=== PATIENT | female | born 1985 | race Caucasian/White ===

== ENCOUNTER 2022-01-25 09:52 | Outpatient (CLI) | payer OTHER, SELFPAY | END 2022-01-25 09:53 | disposition home or self-care (01) | LOC: NFLDREF 02-05 14:18 | PROVIDERS: PCP Family Medicine; Visit Provider Family Medicine | DX: R82.90 Unspecified abnormal findings in urine (principal) | CPT/HCPCS: 87086 ==

== ENCOUNTER 2022-03-23 09:01 | Outpatient (CLI) | payer OTHER, SELFPAY ==
[2022-03-23 15:44] LABS: Albumin* 4.5 g/dL (3.3-5.0); Chloride* 105 mmol/L (96-114); Sodium* 139 mmol/L (135-149)
[2022-03-23 15:45] LABS: Potassium* 4.1 mmol/L (3.6-5.1)
[2022-03-23 15:47] LABS: Aspartate Amino Transferase* 21 U/L (12-35); Bilirubin Total* 0.4 mg/dL (0.1-1.5); Carbon Dioxide* 25 mmol/L (20-32); Creatinine* 0.6 mg/dL (0.5-1.5); Estimated Glomerular Filt Rate 121 ml/min; Total Protein* 7.6 g/dL (6.0-8.3)
[2022-03-23 15:48] LABS: Alanine Aminotransferase* 18 U/L (4-35); Alkaline Phosphatase* 63 U/L (40-150); Blood Urea Nitrogen* 12 mg/dL (5-24); Glucose* 85 mg/dL (60-115)
[2022-03-23 15:50] LABS: C Reactive Protein* 2.8 mg/dL (0.5-1.0)
[2022-03-25 04:21] LABS: Immunoglobulin A 203 mg/dL (68-408)
[2022-03-25 06:57] LABS: Rheumatoid Factor <10 IU/mL (0-14)
[2022-03-25 16:57] LABS: HLA-B27 Positive (Negative)
[2022-03-26 00:34] LABS: Anti-Nuclear Ab(ANA)IgG ELISA None Detected (None Detected)
[2022-03-26 00:42] LABS: Tissue Transglutaminase IgA <2 U/mL (0-3)
== END 2022-03-23 09:02 | disposition home or self-care (01) ==
PROVIDERS: PCP Family Medicine; Visit Provider Family Medicine
DX: R10.13 Epigastric pain (principal); R53.83 Other fatigue; R14.0 Abdominal distension (gaseous); G89.29 Other chronic pain; M25.50 Pain in unspecified joint
CPT/HCPCS: 80053; 82784; 84443; 86039; 86140; 86200; 86364; 86431; 86812

== ENCOUNTER 2022-07-10 12:01 | Observation (INO) | payer OTHER, SELFPAY ==
[2022-07-10] VITALS (8 sets, daily range): BP systolic 113–136; BP diastolic 59–77; PULSE 90–113; RESP 16–18; TEMP 36.5–36.8; O2SAT 94–99; BMI 33.5
--- NOTE | 2022-07-10 | CRLHL7_ITS ---
For Patients: As a result of the Century Cures Act, medical imaging exams and procedure reports are released immediately into your electronic medical record. You may view this report before your referring provider. If you have questions, please contact your health care provider. INDICATION: unresponsive TECHNIQUE: Chest 1 view. COMPARISON: 11/24/20 FINDINGS: Cardiovascular and mediastinum: Heart size and vasculature are normal in caliber and appearance. Mediastinum is within normal limits. Lungs and pleural space: Lungs are clear. No sign of infiltrate or mass. No sign of pleural effusion. No pneumothorax. Bones and soft tissues: No significant findings. IMPRESSION: Unremarkable chest. Dictated by: Wayne Blackmon MD @ 07/10/2022 08:56:33 (Electronically Signed)
[2022-07-10 07:27] LABS: Ur HCG Qualitative* Negative (Negative)
--- NOTE | 2022-07-10 07:41 | W.ANESCHARGE ---
Anesthesia Charges Start Date/Time Anesthesia Start Date: 07/10/22 Anesthesia Start Time: 08:09 Stop Date/Time Anesthesia Stop Date: 07/10/22 Anesthesia Stop Time: 08:46
--- NOTE | 2022-07-10 09:00 | W.ANESCHARGE ---
Anesthesia Charges Start Date/Time Anesthesia Start Date: 07/10/22 Anesthesia Start Time: 08:09 Stop Date/Time Anesthesia Stop Date: 07/10/22 Anesthesia Stop Time: 08:46
[2022-07-10] MEDS: ACETAMINOPHEN 325 MG TABLET 650 MG PO ×2 (13:31→20:24)
--- NOTE | 2022-07-10 16:02 | PC.NURSE ---
Pt admitted to room 258 at 1015 from GI lab after hypoxic episode during procedure. Pt on 7L/nc when she arrived on the floor with her friend Paige and her Efrain at bedside. Eval by Dr. Whitlock, admission completed by primary RN. Pt had a dry non-productive spasmic cough initially. Toward the afternoon she reported back discomfort, RN provided extra pillows, ice pack and tylenol prn. Pt has been tapered to 3L/nc by 2 pm and sats maintained in the mid to high 90's. She does report some thin green phlegm production with occasional blood tinged sputum. Teaching regarding TCDB and sx to report urgently to RN. Reassurance provided and frequent checks throughout the shift. Mild nausea relieved with gingerale and saltines, later pt ate mashed potatoes w/gravy and applesauce. Airway patent, no dysphagia, pt is able to handle her secretions w/o difficulty. Adequate I & 0. Continue to monitor respiratory status and taper oxygen, report to [facility]ier[facility] for evening shift.
--- NOTE | 2022-07-10 16:18 | PM.IMHP1 ---
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 Scope was removed and she was resuscitated. She made good recovery and aureliano asked me to admit her overnight for observation. Ashley is awake in the room and talking with me. Defer and friend, Paige, are with her. She feels well and has no complaints. At this time she is requiring some oxygen and is hoarse. Review of Systems Status of ROS: Reports: 10 or more systems reviewed and unremarkable except as noted in History and below [facility] Medical History (Updated 07/10/22 @ 16:35 by Yina Whitlock MD) Obesity (BMI 30.0-34.9) ?E66.9 - Obesity, unspecified (ICD-10) Chronic GERD ?K21.9 - Gastro-esophageal reflux disease without esophagitis (ICD-10) Moderate obstructive sleep apnea (~2020) ?G47.33 - Obstructive sleep apnea (adult) (pediatric) (ICD-10) 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) ?F33.0 - Major depressive disorder, recurrent, mild (ICD-10) Hx of bulimia nervosa ?Z86.59 - Personal history of other mental and behavioral disorders (ICD-10) Vitamin D deficiency (02/2021) ?E55.9 - Vitamin D deficiency, unspecified (ICD-10) Chronic low back pain with sciatica ?M54.40 - Lumbago with sciatica, unspecified side (ICD-10) ?G89.29 - Other chronic pain (ICD-10) Anxiety ?F41.9 - Anxiety disorder, unspecified (ICD-10) ADHD ?F90.9 - Attention-deficit hyperactivity disorder, unspecified type (ICD-10) Surgical History (Updated 03/22/22 @ 11:45 by Loraine Foreman ~ PSR) History of third molar tooth extraction (2009) ?K08.409 - Partial loss of teeth, unspecified cause, unspecified class (ICD-10) Family History (Updated 03/27/22 @ 07:28 by Vandana Copeland MD) Mother Alcohol dependence Father Alcohol dependence Depression Aunt Diabetes Family/Other Diabetes Maternal Grandmother Pancreatic cancer Other Chronic low back pain with sciatica Social History (Updated 07/10/22 @ 16:31 by Yina Whitlock MD) Narrative: , 2 kids ages 14 and 8. 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 Quit 1 year ago and started vaping. Has been weaning down with intent to quit, currently vaping 1 - 2.6% cartrige Does not exercise on regular basis Do you use any of these nicotine containing products: Vaping Products Nicotine containing products detail: on and off How often do you have a drink containing alcohol: 2-4 times a month Alcohol type: beer How many standard drinks containing alcohol do you have on a typical day: 1 or 2 How often do you have six or more drinks on one occasion: Never AUDIT-C Alcohol total score: 2 Non-prescribed substance use: denies use Caffeine: Yes (4-5 times a week) Little interest or pleasure in doing things: several days Feeling down, depressed, or hopeless: several days service: No Meds Home Medications and Allergies Home Medications Medication Instructions Recorded Confirmed Type dextroamphetamine-amphetamine 10 10 mg PO BID PRN 07/10/22 07/10/22 History mg tablet (Adderall) dextroamphetamine-amphetamine 20 20 mg PO QDAY PRN 07/10/22 07/10/22 History mg tablet Allergies Allergy/AdvReac Type Severity Reaction Status Date / Time indomethacin AdvReac Unknown Nausea Verified 03/23/22 08:32 Exam Narrative: Exam Narrative: General: No acute distress. Awake alert oriented x3. No pallor, jaundice, or cyanosis. Voice is hoarse. HEENT: Normocephalic atraumatic, Oropharynx clear. Mucous membranes are moist. No JVD. Cardiovascular: Regular rate and rhythm. No murmurs, gallops, or rubs. Chest: No increased work of breathing. Clear to auscultation bilaterally. No crackles or wheezes. Abdomen: Bowel sounds present. Soft, nondistended, nontender. No hepatosplenomegaly or masses. Extremities: No edema, no cyanosis or clubbing. Skin: No jaundice, no pallor, no rashes. Neuro: Grossly intact. No focal deficits. Const: Vital Signs, click to edit/add: Vital Signs - 24 hr 07/10/22 09:33 07/10/22 09:50 07/10/22 11:15 Temperature 97.7 F Pulse Rate [Left A pical] 90 Pulse Rate [Right Pulse Oximeter] 101 H Respiratory Rate 18 16 Blood Pressure [Ri ght Arm] 115/60 122/67 Pulse Oximetry 94 94 99 Oxygen Delivery Me thod Nasal Cannula Nasal Cannula Nasal Cannula Oxygen Flow Rate 7 7 4 07/10/22 12:03 07/10/22 15:00 07/10/22 15:00 Temperature Pulse Rate [Left A pical] Pulse Rate [Right Pulse Oximeter] 108 H Respiratory Rate 18 18 Blood Pressure [Ri ght Arm] Pulse Oximetry 98 97 Oxygen Delivery Me thod Nasal Cannula Oxygen Flow Rate 2.5 07/10/22 15:00 Temperature 98 F Pulse Rate [Left A pical] Pulse Rate [Right Pulse Oximeter] 108 H Respiratory Rate 18 Blood Pressure [Ri ght Arm] 136/77 Pulse Oximetry 97 Oxygen Delivery Me thod Nasal Cannula Oxygen Flow Rate 2.5 Hospitalist - H&P: Result Labs Labs: Ordering Physician: Fanny Malhotra M.D. Date of Service: 07/10/22 Procedure(s): XR chest 1V portable Accession Number(s): [id number] cc: Vandana Copeland M.D.; Fanny Malhotra M.D.~ For Patients:? As a result of the Century Cures Act, medical imaging exams and procedure reports are released immediately into your electronic medical record.? You may view this report before your referring provider.? If you have questions, please contact your health care provider. INDICATION: unresponsive TECHNIQUE: Chest 1 view. COMPARISON: 11/24/20 FINDINGS: Cardiovascular and mediastinum: Heart size and vasculature are normal in caliber and appearance.? Mediastinum is within normal limits.? Lungs and pleural space: Lungs are clear.? No sign of infiltrate or mass.? No sign of pleural effusion.? No pneumothorax.? Bones and soft tissues: No significant findings.? IMPRESSION: Unremarkable chest. Dictated by: Wayne Blackmon MD @ 07/10/2022 08:56:33 (Electronically Signed) Assessment and Plan Assessment and plan (1) Respiratory arrest: Problem comment: Likely secondary to laryngospasm or mucous plugging. Monitor on Status: Acute (2) Chronic GERD: Problem comment: recurrent nausea/ vomiting Status: Chronic (3) Moderate obstructive sleep apnea: Problem comment: will try oral appliance, waiting for that appt at [facility] Status: Acute (4) Obesity (BMI 30.0-34.9): Status: Acute
[2022-07-10] MEDS: FLUOXETINE HCL 20 MG CAPSULE PO (16:20)
[2022-07-10] MEDS: OMEPRAZOLE 20 MG CAPSULE DR PO (16:21)
--- NOTE | 2022-07-10 22:28 | PC.NURSE ---
Nursing Care Hours: [id number] pt this shift calm and cooperative, alert and oriented. SPO2 97% on 3.5L NC, titrate down 1L about every hour, sats remained above 94%. Walked horowitz x1 on Room air, lowest SpO2 93%, pulse 128. At rest, pulse tachy at 105-113. Drinking well. Pt states cough is productive, pt observed some red tinge to green sputum. Encouraged that streaks would be normal after severe irritation. LS beginning of shift had bilat expiratory rhonchi. End of shift, posterior L mid lobe had fine crackles. Pt has difficulty using IS because it starts coughing fit. Encouraged to try and take as deep of breaths as tolerated frequently to encourage the expelling of sputum. Tolerating regular diet. Tylenol given PRN for chronic low back and bilat hip pain.
[2022-07-10] MEDS: SODIUM CHLORIDE 0.9 % (FLUSH) 10 ML SYRINGE 5 ML IVF (23:36)
[2022-07-11] MEDS: MELATONIN 3 MG TABLET PO (00:28)
[2022-07-11 03:30] VITALS: BP 109/57; PULSE 91; RESP 16; TEMP 36.7; O2SAT 96
--- NOTE | 2022-07-11 06:06 | PC.NURSE ---
END OF SHIFT NOTE: PT PLEASANT AND COOPERATIVE WITH CARES. A&O x4.?PT DENIES CP, SOB, N/V. AMBULATES INDEPENDENTLY WITHIN ROOM. VSS ON RA; AFEBRILE. CONTINUOUS SPO2 MONITORING, SATS IN MID 90?S ON RA. INTERMITTENT NON-PRODUCTIVE COUGH. LS WITH EXPIRATORY WHEEZING AND RHONCHI. IS ENCOURAGED. PT C/O CHRONIC LOWER BACK/HIP PAIN WITH SOME RELIEF FROM AQUA-K PAD, ICE PACK AND PRN PAIN RELIEVER. CALL LIGHT WITHIN PT?S REACH. UNEVENTFUL NIGHT.
[2022-07-11 07:00] VITALS: BP 125/88; PULSE 91; RESP 18; TEMP 36.6; O2SAT 95
--- NOTE | 2022-07-11 07:22 | CRLHL7_ITS ---
For Patients: As a result of the Century Cures Act, medical imaging exams and procedure reports are released immediately into your electronic medical record. You may view this report before your referring provider. If you have questions, please contact your health care provider. Indication: Hypoxia. Technique: Chest 1 view. Comparison: 07/10/2022. Findings/Impression: Cardiovascular and mediastinum: Heart size and vasculature are normal in caliber and appearance. Lungs and pleural space: No focal opacity in the lower left lung could represent atelectasis or pneumonia. This is similar to yesterday`s exam. Remainder of the lungs and pleural spaces are clear. No pneumothorax. Bones and soft tissues: No acute findings. Dictated by Pancho Lopez MD @ 07/11/2022 8:00:08 AM (Electronically Signed)
[2022-07-11] MEDS: OMEPRAZOLE 20 MG CAPSULE DR PO (08:26)
[2022-07-11] MEDS: FLUOXETINE HCL 20 MG CAPSULE PO (08:26)
--- NOTE | 2022-07-11 09:48 | P.DS_ITS ---
DS: Providers Provider Date Seen: 07/11/22 Date of admission: 07/10/22 12:01 Primary care physician: Vandana Copeland MD Admitting Clinician: Yina Whitlock MD Attending Physician on discharge: Karey Ann MD Date of Discharge: 07/11/22 DS: Diagnosis Discharge Diagnosis (1) Respiratory arrest: Status: Acute Problem details: - during EGD. Likely secondary to laryngospasm and/or mucous plugging; remained stable on RA throughout 24 hour observation (2) Chronic GERD: Status: Chronic Problem details: - n/v (3) Pneumonia: Status: Acute Problem details: - noted on imaging 07/11, exam also c/w this, discharge home on oral Augmentin DS: Summary Hospital Course Hospital Course: Pleasant 37-year-old female who was admitted to the hospital for monitoring after having a respiratory arrest during an EGD. Patient did not require intubation nor chest compressions during her event. She was admitted to the hospital for observation post-incident. She remained stable and afebrile, did not require supplemental oxygen and was followed by RT during stay. On hospital day 1, she was noted to have fine rales in her left lung base; imaging confirmed an early infiltrate vs atelectasis in her left lower lobe. She will be discharged home on Augmentin with close PCP follow-up. Status at Discharge Functional status at discharge: independent ambulation Overall status at discharge: patient is progressing back to baseline Time Spent with Patient Time attestation: Total time spent providing and/or coordinating discharge services: Time spent: Greater than 30 minutes Specific discharge activities: Patient education, care coordination with RT, medication reconciliation Exam Narrative: Exam Narrative: GEN: Alert and oriented, sitting comfortably in bedside chair and speaking in f ull sentences HEENT: EOMIs bilaterally, no scleral icterus CV: RRR, No concerning murmurs, rubs, or gallops R: Air movement adequate, no wheezes, fine rales left base Ext: wwp, no concerning edema Skin: No concerning skin lesions or rashes on exposed skin Neuro: No focal deficits, no resting tremor Psych: Appropriate Const: Vital Signs, click to edit/add: Vital Signs - 24 hr 07/10/22 09:50 07/10/22 11:15 07/10/22 12:03 Temperature 97.7 F Pulse Rate [Left A pical] Pulse Rate [Right Pulse Oximeter] 101 H Respiratory Rate 16 Blood Pressure [Ri ght Arm] 122/67 Pulse Oximetry 94 99 98 Oxygen Delivery Me thod Nasal Cannula Nasal Cannula Oxygen Flow Rate 7 4 07/10/22 15:00 07/10/22 15:00 07/10/22 15:00 Temperature 98 F Pulse Rate [Left A pical] Pulse Rate [Right Pulse Oximeter] 108 H 108 H Respiratory Rate 18 18 18 Blood Pressure [Ri ght Arm] 136/77 Pulse Oximetry 97 97 Oxygen Delivery Me thod Nasal Cannula Nasal Cannula Oxygen Flow Rate 2.5 2.5 07/10/22 19:00 07/10/22 20:32 07/10/22 23:00 Temperature 98.3 F Pulse Rate [Left A pical] 90 Pulse Rate [Right Pulse Oximeter] 113 H 113 H 96 Respiratory Rate 18 18 18 Blood Pressure [Ri ght Arm] 132/63 Pulse Oximetry 95 Oxygen Delivery Me thod Room Air Oxygen Flow Rate 07/10/22 23:00 07/10/22 23:00 07/11/22 03:30 Temperature 97.7 F 98.0 F Pulse Rate [Left A pical] Pulse Rate [Right Pulse Oximeter] 96 91 Respiratory Rate 16 16 16 Blood Pressure [Ri ght Arm] 113/59 L 109/57 L Pulse Oximetry 95 95 96 Oxygen Delivery Me thod Room Air Room Air Room Air Oxygen Flow Rate Discharge Plan Discharge Disposition: Home, Self-Care Date of Admission: 07/10/22 12:01 Attending Provider on Discharge: Karey Ann Primary Care Provider: Vandana Copeland Condition: Improved Anticipated Discharge Date/Time: 07/11/22 09:39 Discharge Medications: New amoxicillin-pot clavulanate 875-125 mg tablet 1 tab PO BID 7 Days Qty: 14 0RF Continued omeprazole 20 mg capsule,delayed release(DR/EC) 20 mg PO QDAY Qty: 90 4RF dextroamphetamine-amphetamine [Adderall] 10 mg tablet 10 mg PO BID PRN Rx Instructions: administer doses at least 4-6 hours apart dextroamphetamine-amphetamine 20 mg tablet 20 mg PO QDAY PRN naproxen 500 mg tablet 500 mg PO BIDWM norgestimate-ethinyl estradiol 0.25-35 mg-mcg tablet 1 tab PO QDAY Qty: 84 3RF fluoxetine 20 mg capsule 20 mg PO QDAY Qty: 90 4RF Discharge Orders: Discharge Order (Routine); Ordered 07/11/22 Ordered By: Karey Ann Patient Education: Amoxicillin/Clavulanate Potassium (By mouth) (Augmentin, Augmentin..., Aspiration Pneumonia (DC) Activity Level: Activity as Tolerated Discharge Diet: Regular Follow Up Appointments: Vandana Copeland MD [Primary Care Provider] - 07/20/22 2:30 pm ([facility] follow up with Dr. Copeland.) Forms: [employer] Info Instructions
--- NOTE | 2022-07-11 09:55 | RESP.RT ---
Pt seen this AM. Walked PT for a few minutes as well as marching in place to mimick home steps. SPO2 on RA consistetly 97%, HR 104. BBS clear on right, however, LLL with crackles. 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 Pt is anxious and nervous about falling asleep at home. Mentioned this to provider.
[2022-07-11 10:16] VITALS: RESP 16; TEMP 36.7
--- NOTE | 2022-07-11 11:48 | PC.NURSE ---
shift note: vss stable. pt has exp rhonchi in LLL and BURAK. pt sats cont 95% RA. Pt has dry intermittent cough. pt instructed by RT on aerobika. Reviewed dc instructions and copies sent with pt at dc. Belongings reviewed and sent with pt at dc. IV dc'd intact Rt FA
== END 2022-07-11 11:35 | disposition home or self-care (01) ==
LOC: OP CLINIC 12:47 → MEDSURG 12:47
PROVIDERS: Surgery; Admitting Provider Family Medicine; PCP Family Medicine; Visit Provider Family Medicine
DX: R09.2 Respiratory arrest (principal); K21.9 Gastro-esophageal reflux disease without esophagitis; J18.9 Pneumonia, unspecified organism; G47.33 Obstructive sleep apnea (adult) (pediatric); R91.8 Other nonspecific abnormal finding of lung field; Z86.59 Personal history of other mental and behavioral disorders; F17.290 Nicotine dependence, other tobacco product, uncomplicated; E66.9 Obesity, unspecified; Z68.33 Body mass index [BMI] 33.0-33.9, adult; F90.9 Attention-deficit hyperactivity disorder, unspecified type; M54.40 Lumbago with sciatica, unspecified side; G89.29 Other chronic pain; Z98.890 Other specified postprocedural states; T81.89XA Other complications of procedures, not elsewhere classified, initial encounter; J95.821 Acute postprocedural respiratory failure
CPT/HCPCS: 00731; 43239; 71045; 81025; 88305; 94664; 94761; A9270; G0378; J2405

== ENCOUNTER 2022-10-02 15:52 | Outpatient (CLI) | payer OTHER, SELFPAY ==
--- OUTSIDE RECORDS SUMMARY | 2022-10-03 07:03 | XMS_ITS | Continuity of Care Document ---
Author Name Unknown Organization [facility] Address [address] [place] [address] Phone Care Team Providers Care Saw Runner Name Role Phone Padmini KUMAR, Daniel Unavailable Unavailable Allergies, Adverse Reactions, Alerts Substance Reaction Status Criticality CEFTRIAXONE SODIUM Active No Inform ation Medications Medication Instructions Dosage Effective Dates (start - stop) Status Comments naproxen 500 mg tablet take 1 tablet by oral route 2 times every day with food 500 MG - Active fluoxetine 20 mg tablet take 1 tablet by oral route every day in the morning 20 MG - Active norgestimate 0.25 mg-ethinyl estradiol 35 mcg tablet take 1 tablet by oral route every day 1.00 tablet - Active Adderall XR 20 mg capsule,extended release take 1 capsule by oral route every day in the morning upon awakening 20 MG - Active omeprazole 20 mg tablet,delayed release take 1 Tablet by Oral route every day 1 Tablet - Active FISH OIL (unknown strength) Not Available - Active Vitamin D3 50 mcg (2,000 unit) tablet take 1 Tablet by Oral route every day 1 Tablet - Active Procedures Procedure Date Office/Outpatient Visit, New Routine Venipuncture Specimen Handling Rbc Sed Rate, Automated Assay Of Serum Albumin Assay Of Creatinine Transferase (Ast) (Sgot) Alanine Amino (Alt) (Sgpt) CReactive Protein Complete Cbc, Automated Results Test Name Date and Time Measure Units Reference Range Abnormal Flag Status Comments Panel Description: CBC no diff - Radha Final WBC 12:29:00 7.1 K/uL 4.0-10.0 Final RBC 12:29:00 4.53 M/uL 3.80-5.80 Final Hemoglobin 12:29:00 14.2 g/dL 11.5-16.0 Final Hematocrit 12:29:00 42.0 % 37.0-47.0 Final MCV 12:29:00 93 fL 80-100 Final MCH 12:29:00 31.3 pg 27.0-32.0 Final MCHC 12:29:00 33.7 g/dL 32.0-36.0 Final RDW 12:29:00 12.6 % 11.0-16.0 Final Platelet Count 12:29:00 334 K/uL 150-500 Final MPV 12:29:00 7.2 fL 6.0-11.0 Final Panel Description: DMARD Final AST 13:16:00 26 U/L 5-34 Final ALT 13:16:00 22 IU/L 5-35 Final Creatinine 13:16:00 0.530 mg/dL 0.500-1.300 Final ALB 13:16:00 4.2 g/dL 3.5-5.3 Final GFR 13:16:00 140.3 mL/min/1 .73 m2 Final Panel Description: CRP Final CRP 13:16:00 2.49 MG/DL 0.00-0.60 H Final Panel Description: ESR Final ESR 13:42:00 16 mm/hr 0-20 Final Panel Description: HEPATITIS B SURFACE ANTIGEN W /REFL CONFIRM Final HEPATITIS B SURFACE ANTIGEN 13:56:00 NON-REACTI VE NON-REACTIVE N Final Panel Description: HEPATITIS C AB W/REFL TO HCV RNA, QN, PCR Final HEPATITIS C ANTIBODY 13:56:00 NON-REACTI VE NON-REACTIVE N Final INDEX 13:56:00 0.09 <1.00 N Final HCV antibody was non-reactive. There is no laboratory evidence of HCV infection. In most cases, no further action is required. However,if recent HCV exposure is suspected, a test for HCV RNA(test code 29761) is suggested. For additional information please refer [email or web address](This link is being provided for informational/ educational purposes only.) Advance Directives Directive Yes / No Effective Date File Name No Information Encounters Encounter Description Practice Location Reason(s) For Visit Diagnoses Date Provider Providers Copied on Encounter Office/Outpa tient Visit, [facility], [address], [place], [address], [place] tel:[phone] [facility], low back pain (chief complaint) Low back pain 3 Padmini Sanchez. [facility] [address], [place], [address], [place]. tel:[phone] Referring Provider: Daniel Torres, [facility] [address], [place], [address]. tel:[phone] Family History Family Member Type Diagnosis Age At Onset Maternal aunt Problem rheumatoid arthritis Maternal aunt Problem Systemic lupus erythematosu s Payers Payer name Insurance type Covered libertarian ID Authoriza tion(s) [employer] CI [id number] Social History Type Description Quantity Date Captured Comments Alcohol Use Details No Caffeine Use Details Tobacco Use Status Current non-smoker Smoking Status Never smoker Non-Smoking Tobacco Use Details : No Details Available : No Details Available Sex Female Vital Signs Date / Time: Height Weight BMI Pulse Rate Blood Pressure Temperature Respiratory Rate Body Surface Area Head Circumference Head Circ. Percentile Wt./Josiah. Percentile BMI percentile Pulse Ox Inhaled Ox 11:25 AM 70.28 in 102.512 kg (226.00 lbs) 32.1 7 kg/m eter (2) 126/88 mm[Hg] 98.00 F Chief Complaint And Reason For Visit From encounter dated '06/27/2022 11:15'. low back pain (chief complaint) Reason For Referral Reason For Referral No Information History Of Present Illness Encounter Date Complaint History Of Prese nt Illness low back pain Functional Status Date Functional Assessmen t Pain Score 6/10 Instructions Date Instruction Additional Infor mation No Information Assessments Type Assessment Date assessment Low back pain Patient Care Teams Name Effective Dates (start - stop) Status Members No Information
== END 2022-10-02 15:53 | disposition home or self-care (01) ==
LOC: NFLDREF 10-03 07:01
PROVIDERS: PCP Family Medicine; Referring Provider Family Medicine; Visit Provider Internal Medicine
DX: R10.9 Unspecified abdominal pain (principal)
CPT/HCPCS: 87086

== ENCOUNTER 2023-02-14 14:57 | Emergency (ER) | payer OTHER, SELFPAY ==
[2023-02-14] VITALS (9 sets, daily range): BP systolic 117–139; BP diastolic 83–97; PULSE 77–97; RESP 18; TEMP 36.3; O2SAT 97–99; BMI 33.0
--- NOTE | 2023-02-14 15:23 | CRLHL7_ITS ---
For Patients: As a result of the Century Cures Act, medical imaging exams and procedure reports are released immediately into your electronic medical record. You may view this report before your referring provider. If you have questions, please contact your health care provider. INDICATION: Dizziness, headache. TECHNIQUE: Noncontrast CT of the head with multiplanar reformat in bone and soft tissue algorithms. COMPARISON: None available. FINDINGS: No acute intracranial hemorrhage. The ramirez-white matter interface is preserved. The ventricles are normal in size. 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 Orbits are unremarkable. A mucous retention cyst is noted in the inferior left maxillary sinus. Paranasal sinuses and mastoid air cells are otherwise clear. IMPRESSION: No acute intracranial abnormality. Please note that all CT scans at this facility use dose modulation, iterative reconstruction, and/or weight-based dosing when appropriate to reduce radiation dose to as low as reasonably achievable. Dictated by Pritesh العراقي MD @ 02/14/2023 4:26:57 PM (Electronically Signed)
--- NOTE | 2023-02-14 16:07 | CRLHL7_ITS ---
For Patients: As a result of the Cures Act, medical imaging exams and procedure reports are released immediately into your electronic medical record. You may view this report before your referring provider. If you have questions, please contact your health care provider. INDICATION: Chest pain. TECHNIQUE: Chest radiographs, two views. COMPARISON: Chest radiographs 07/24/2022 FINDINGS: Lines/Tubes/Devices: None. Mediastinum: Normal cardiac silhouette. Lungs: No focal consolidation. Airways: The trachea remains midline. Pleura: No pleural effusions or pneumothorax. Bones: No acute osseous abnormalities. Upper Abdomen: Unremarkable. IMPRESSION: No acute cardiopulmonary process. Stable examination. Dictated by Harvey Lopez MD @ 02/14/2023 5:52:58 PM (Electronically Signed)
--- NOTE | 2023-02-14 16:23 | ED.GENADULT ---
HPI - General Adult General Chief complaint: Dizziness/Vertigo Stated complaint: Dizzy, lightheaded Time Seen by Provider: 02/14/23 16:06 History of Present Illness HPI narrative: Patient is a 37-year-old female presenting to emergency department for lightheadedness, dizziness, chest pain. She states for the past year and a half she has been having these symptoms on and off but they have gotten worse for the past 3 weeks after she was diagnosed with COVID. 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 She states this was the worst the symptoms have ever been. She continues to feel dizzy and states she is tried Antivert in the past for these symptoms and does not really help. Also states she feels like her hearing seems to come and go. She has not been is seeing neurologist for these symptoms yet but does states she was in the process of seeing a infrastructure software engineer who recommended she get an EGD. While she was having this performed respiratory arrest but did not require intubation or chest compressions. She was admitted to the hospital has not been able to follow-up with her infrastructure software engineer since then. States at the time of the episode she felt like she was going to pass out in the room was spinning. Also has intermittent chest pain. Denies fevers, chills, abdominal pain, shortness of breath, numbness, weakness. Related Data Previous Rx's Medication Instructions Recorded omeprazole 20 mg capsule,delayed 20 mg PO QDAY #90 caps 03/23/22 release fluoxetine 20 mg capsule 20 mg PO QDAY #180 caps 09/20/22 dextroamphetamine-amphetamine 10 10 mg PO .PRN #60 tabs 11/07/22 mg tablet (Adderall) fluconazole 100 mg tablet 100 mg PO QDAY #15 tabs 12/06/22 (Diflucan) norgestimate 0.25 mg-ethinyl 1 tab PO QDAY #84 tabs 01/08/23 estradiol 35 mcg tablet meclizine 25 mg tablet 25 mg PO QID #20 tabs 02/14/23 Allergies Allergy/AdvReac Type Severity Reaction Status Date / Time indomethacin AdvReac Unknown Nausea Verified 12/06/22 09:30 Review of Systems Status of ROS: Reports: 10 or more systems reviewed and unremarkable except as noted in History and below PFSH PFSH Medical History Abdominal pain ?R10.9 - Unspecified abdominal pain (ICD-10) Obesity (BMI 30.0-34.9) ?E66.9 - Obesity, unspecified (ICD-10) Aspiration pneumonia ?J69.0 - Pneumonitis due to inhalation of food and vomit (ICD-10) Pneumonia ?J18.9 - Pneumonia, unspecified organism (ICD-10) Chronic GERD ?K21.9 - Gastro-esophageal reflux disease without esophagitis (ICD-10) Moderate obstructive sleep apnea (~2020) ?G47.33 - Obstructive sleep apnea (adult) (pediatric) (ICD-10) 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) ?F33.0 - Major depressive disorder, recurrent, mild (ICD-10) Hx of bulimia nervosa ?Z86.59 - Personal history of other mental and behavioral disorders (ICD-10) Vitamin D deficiency (02/2021) ?E55.9 - Vitamin D deficiency, unspecified (ICD-10) Chronic low back pain with sciatica ?M54.40 - Lumbago with sciatica, unspecified side (ICD-10) ?G89.29 - Other chronic pain (ICD-10) Anxiety ?F41.9 - Anxiety disorder, unspecified (ICD-10) ADHD ?F90.9 - Attention-deficit hyperactivity disorder, unspecified type (ICD-10) Surgical History History of third molar tooth extraction (2009) ?K08.409 - Partial loss of teeth, unspecified cause, unspecified class (ICD-10) Family History Mother Alcohol dependence Father Alcohol dependence Depression Aunt Diabetes Family/Other Diabetes Maternal Grandmother Pancreatic cancer Other Chronic low back pain with sciatica Social History Narrative: , 2 kids ages 14 and 8. [employer] Social drinker 8-10 beers once a month Non smoker. Smoked off and on for 15-20 years. 09/2021 Does not exercise on regular basis Smoking Status: Former smoker Do you use any of these nicotine containing products: Vaping Products Nicotine containing products detail: on and off How often do you have a drink containing alcohol: 2-4 times a month Alcohol type: beer How many standard drinks containing alcohol do you have on a typical day: 1 or 2 How often do you have six or more drinks on one occasion: Never AUDIT-C Alcohol total score: 2 Non-prescribed substance use: denies use Caffeine: Yes (4-5 times a week) Little interest or pleasure in doing things: several days Feeling down, depressed, or hopeless: several days service: No Exam Narrative: Exam Narrative: Const: Well-nourished, Well-developed, in mild distress Eyes: PERRL, no conjunctival injection, and symmetrical lids HENT: Atraumatic external nose and ears. Moist mucous membranes. Neck: Symmetric, trachea midline, No thyromegaly. CVS: RRR, No murmurs or gallops. Peripheral pulses 2+ and equal in all extremities RESP: Unlabored respiratory effort. Clear to auscultation bilaterally. GI: Nontender/Nondistended, No rebound or guarding. MSK:Extremities w/o deformity, Normal Active ROM Skin: Warm, Dry. No rashes or lesions. Neuro: Normal Muscle tone, No focal neurological deficits. Psych: Awake, Alert, & Oriented x3. Appropriate mood and affect. Const: Vital Signs, click to edit/add: Vital Signs - 24 hr 02/14/23 15:05 02/14/23 16:46 02/14/23 16:47 Temperature 97.4 F L Pulse Rate 78 84 Pulse Rate [Pulse Oximeter] 97 Respiratory Rate 18 Blood Pressure 129/85 Blood Pressure [Ri ght Upper Arm] 139/97 H Pulse Oximetry 99 98 97 Oxygen Delivery Me thod Room Air 02/14/23 17:00 02/14/23 17:02 02/14/23 17:15 Temperature Pulse Rate 86 84 80 Pulse Rate [Pulse Oximeter] Respiratory Rate Blood Pressure 133/85 Blood Pressure [Ri ght Upper Arm] Pulse Oximetry 98 98 98 Oxygen Delivery Me thod 02/14/23 17:30 02/14/23 17:32 02/14/23 17:45 Temperature Pulse Rate 77 80 81 Pulse Rate [Pulse Oximeter] Respiratory Rate Blood Pressure 117/83 Blood Pressure [Ri ght Upper Arm] Pulse Oximetry 99 99 98 Oxygen Delivery Me thod Course Vital Signs Vital signs: Initial Vital Signs Temperature 97.4 F L 02/14/23 15:05 Temperature Source Temporal Artery Scan 02/14/23 15:05 Pulse Rate 97 02/14/23 15:05 Respiratory Rate 18 02/14/23 15:05 Blood Pressure 139/97 H 02/14/23 15:05 Blood Pressure Mean 111 H 02/14/23 15:05 Blood Pressure Position Sitting 02/14/23 15:05 Pulse Oximetry 99 02/14/23 15:05 Oxygen Delivery Method Room Air 02/14/23 15:05 Vital Signs Temperature 97.4 F L 02/14/23 15:05 Pulse Rate 97 02/14/23 15:05 Respiratory Rate 18 02/14/23 15:05 Blood Pressure 139/97 H 02/14/23 15:05 Pulse Oximetry 99 02/14/23 15:05 Oxygen Delivery Method Room Air 02/14/23 15:05 Temperature 97.4 F L 02/14/23 15:05 Pulse Rate 81 02/14/23 17:45 Respiratory Rate 18 02/14/23 15:05 Blood Pressure 117/83 02/14/23 17:32 Pulse Oximetry 98 02/14/23 17:45 Oxygen Delivery Method Room Air 02/14/23 15:05 Medications Administered Medications: Discontinued Medications Generic Name Dose Route Start Last Admin Trade Name Floridalma PRN Reason Stop Dose Admin Lactated Ringer's 1,000 mls @ 1,000 mls/hr 02/14/23 16:07 02/14/23 18:09 Lactated Ringers 1000 Ml IV 02/14/23 17:06 Infused .Q1H ONE Infusion Meclizine HCl 25 mg 02/14/23 17:00 02/14/23 17:07 Meclizine Hcl 25 Mg Tablet PO 02/14/23 17:01 25 mg ONCE ONE Administration Medical Decision Making MDM Narrative Medical decision making narrative: Patient is a 37-year-old female presenting to emergency department for lightheadedness and dizziness. She states symptoms are worse when she moves her head. Nursing staff was initially concerned she could be having aphasia so head CT was ordered prior to the start of my shift. The symptoms are not there and I spoke to the patient and her only concern was the dizziness. This returned showing no concerning abnormalities. To speaking to her longer does appears she does have vertigo and symptoms at all and only there when she moves her head. Will give her lactated Ringer's and meclizine. CBC, magnesium, CMP, troponin, urinalysis, urine test all ordered. Also lab work returned showing no concerning abnormalities. Head CT and chest x-ray showed no concerning findings. Her symptoms have improved significantly with the fluids and Antivert. I do believe she is having peripheral vertigo considering the symptoms. She does feel comfortable with discharge at this time. EKG also showed no concerning findings. Lab Data Labs: Lab Results 02/14/23 02/14/23 Range/Units 16:27 Unknown WBC 9.87 (4.50-11.00) K/uL RBC 4.49 (4.00-5.20) m/uL Hgb 13.4 (12.0-16.0) gm/dL Hct 40.8 (33.0-51.0) % MCV 91 (80-100) fL MCH 30 (26-34) pg MCHC 33 (32-36) gm/dL RDW Coeff of Ayo 12.3 (11.5-15.5) % Plt Count 321 (140-440) K/uL Neut % (Auto) 65.5 (42.0-72.0) % Lymph % (Auto) 24.1 (20-44) % [place] % (Auto) 8.8 (0.0-11.0) % Eos % (Auto) 1.2 (0.0-7.0) % Baso % (Auto) 0.3 (0.0-3.0) % Neut # (Auto) 6.46 (1.7-7.0) K/uL Lymph # (Auto) 2.38 (0.90-2.90) K/uL [place] # (Auto) 0.90 (0.00-0.90) K/UL Eos # (Auto) 0.12 (0.00-0.50) K/uL Baso # (Auto) 0.03 (0.00-0.30) K/uL Abs Immat Gran (auto) 0.01 (0.00-0.30) K/uL Imm/Tot Granulo (auto) 0.1 % Sodium 136 (135-149) mmol/L Potassium 3.8 (3.6-5.1) mmol/L Chloride 102 (96-114) mmol/L Carbon Dioxide 27 (20-32) mmol/L Anion Gap 7 (7-15) mEq/L BUN 16 (5-24) mg/dL Creatinine 0.5 (0.5-1.5) mg/dL Estimated Creat Clear 169.82 Estimated GFR 125 ml/min Glucose 88 (60-115) mg/dL Calcium 9.6 (8.4-10.6) mg/dL Magnesium 1.8 (1.5-2.6) mg/dL Total Bilirubin 0.2 (0.1-1.5) mg/dL AST 33 (12-35) U/L ALT 42 H (4-35) U/L Alkaline Phosphatase 63 (40-150) U/L Troponin I < 0.01 L (0.01-0.04) ng/mL Total Protein 7.9 (6.0-8.3) g/dL Albumin 4.6 (3.3-5.0) g/dL Urine Color Yellow (Yellow) Urine Appearance Clear (Clear) Urine pH 6.0 (5.0-8.5) Ur Specific [place] 1.010 (1.000-1.030) Urine Protein Negative (Negative) Urine Glucose (UA) Negative (Negative) Urine Ketones Negative (Negative) Urine Blood Negative (Negative) Urine Nitrite Negative (Negative) Urine Bilirubin Negative (Negative) Urine Urobilinogen 0.2 (0.2-1.0) Ur Leukocyte Esterase Negative (Negative) Urine RBC 0-2 (0-2) Urine WBC 0-2 (0-5) Ur Squamous Epith Cells None (None-Few) Urine Bacteria None (None) Urine HCG, Qual Negative (Negative) Imaging Data CT scan - head: Radiologist's impression: No acute intracranial abnormality. Please note that all CT scans at this facility use dose modulation, iterative reconstruction, and/or weight-based dosing when appropriate to reduce radiation dose to as low as reasonably achievable. Dictated by Pritesh العراقي MD @ 02/14/2023 4:26:57 PM Chest x-ray: Radiologist's impression: No acute cardiopulmonary process. Stable examination. Dictated by Harvey Lopez MD @ 02/14/2023 5:52:58 PM ECG Data Attestation: I personally reviewed and interpreted this ECG as follows: Prior ECG tracings: available for review Interpretation: Normal sinus rhythm with a rate of 84 beats per minute, normal intervals, normal axis, no ST or T-wave abnormalities. Appears similar to previous EKG on file Discharge Plan Discharge Clinical Impression: Vertigo Patient Disposition: Home, Self-Care Condition: Improved Instructions: Vertigo (DC) Additional Instructions: Take the meclizine as directed. Follow up with the primary care provider and looking to came back and the infrastructure software engineer and seen a neurologist. Return to emergency department for new or worsening symptoms Activity Level: No Restrictions Discharge Diet: Regular Prescriptions: New meclizine 25 mg tablet 25 mg PO QID Qty: 20 0RF No Action fluoxetine 20 mg capsule 20 mg PO QDAY Qty: 180 2RF omeprazole 20 mg capsule,delayed release(DR/EC) 20 mg PO QDAY Qty: 90 4RF fluconazole [Diflucan] 100 mg tablet 100 mg PO QDAY Qty: 15 0RF dextroamphetamine-amphetamine [Adderall] 10 mg tablet 10 mg PO .PRN Qty: 60 0RF Rx Instructions: administer doses at least 4-6 hours apart norgestimate-ethinyl estradiol 0.25-35 mg-mcg tablet 1 tab PO QDAY Qty: 84 3RF Follow Up/Referrals: Vandana Copeland MD [Primary Care Provider] - Stand Alone Forms: [employer] Info Instructions
[2023-02-14] MEDS: MECLIZINE HCL 25 MG TABLET PO (17:07)
[2023-02-14] MEDS: LACTATED RINGERS 1000 ML 1,000 ML IV (17:07)
--- OUTSIDE RECORDS SUMMARY | 2023-02-14 17:14 | XMS_ITS | Continuity of Care Document ---
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 For additional information please refer [email or web address]/fa [email or web address](This link is being provided for informational/ educational purposes only.) Advance Directives Directive Yes / No Effective Date File Name No Information Encounters Encounter Description Practice Location Reason(s) For Visit Diagnoses Date Provider Providers Copied on Encounter Office/Outpa tient Visit, [facility], [address], [place], [address], [place] tel:[phone] [facility], low back pain (chief complaint) Low back pain 3 Padmini Sanchez. [facility] [address], [place], [address], [place]. tel:[phone] Referring Provider: Daniel Torres, [facility] [address], [place], [address]. tel:[phone] Family History Family Member Type Diagnosis Age At Onset Maternal aunt Problem rheumatoid arthritis Maternal aunt Problem Systemic lupus erythematosu s Payers Payer name Insurance type Covered democrat ID Authoriza tion(s) [employer] CI [id number] Social History Type Description Quantity Date Captured [...]
[2023-02-14 17:21] LABS: Albumin* 4.6 g/dL (3.3-5.0); Chloride* 102 mmol/L (96-114); Potassium* 3.8 mmol/L (3.6-5.1); Sodium* 136 mmol/L (135-149)
[2023-02-14 17:23] LABS: Bilirubin Total* 0.2 mg/dL (0.1-1.5); Creatinine* 0.5 mg/dL (0.5-1.5); Est. Creatinine Clearance* 169.82; Estimated Glomerular Filt Rate 125 ml/min
[2023-02-14 17:24] LABS: Alanine Aminotransferase* 42 U/L (4-35); Alkaline Phosphatase* 63 U/L (40-150); Anion Gap 7 mEq/L (7-15); Aspartate Amino Transferase* 33 U/L (12-35); Blood Urea Nitrogen* 16 mg/dL (5-24); Calcium* 9.6 mg/dL (8.4-10.6); Carbon Dioxide* 27 mmol/L (20-32); Glucose* 88 mg/dL (60-115); Total Protein* 7.9 g/dL (6.0-8.3)
[2023-02-14 17:25] LABS: Magnesium* 1.8 mg/dL (1.5-2.6)
[2023-02-14 17:26] LABS: Basophils Absolute Auto 0.03 K/uL (0.00-0.30); Basophils Percent Auto 0.3 % (0.0-3.0); Eosinophils Absolute Auto 0.12 K/uL (0.00-0.50); Eosinophils Percent Auto 1.2 % (0.0-7.0); Hematocrit 40.8 % (33.0-51.0); Hemoglobin* 13.4 gm/dL (12.0-16.0); Immature Granulocytes Abs Auto 0.01 K/uL (0.00-0.30); Immature Granulocytes Pct Auto 0.1 %; Lymphocytes Absolute Auto 2.38 K/uL (0.90-2.90); Lymphocytes Percent Auto 24.1 % (20-44); Mean Corpuscular HGB Conc 33 gm/dL (32-36); Mean Corpuscular Hemoglobin 30 pg (26-34); Mean Corpuscular Volume 91 fL (80-100); Monocytes Percent Auto 8.8 % (0.0-11.0); Neutrophils Absolute Auto 6.46 K/uL (1.7-7.0); Neutrophils Percent Auto 65.5 % (42.0-72.0); Platelet Count* 321 K/uL (140-440); RDW Coefficient of Variation % 12.3 % (11.5-15.5); Red Blood Count 4.49 m/uL (4.00-5.20); White Blood Count* 9.87 K/uL (4.50-11.00)
[2023-02-14 17:29] LABS: Slide Review Reflex No
[2023-02-14 17:37] LABS: Troponin I* < 0.01 ng/mL (0.01-0.04)
[2023-02-14 17:43] LABS: Appearance Urine Clear (Clear); Bilirubin Urine Negative (Negative); Blood Urine Negative (Negative); Color Urine Yellow (Yellow); Glucose Urine Negative (Negative); Ketones Urine Negative (Negative); Leukocyte Esterase Urine Negative (Negative); Nitrite Urine Negative (Negative); Protein Urine Negative (Negative); Urobilinogen Urine 0.2 (0.2-1.0)
[2023-02-14 17:44] LABS: Ur HCG Qualitative* Negative (Negative)
[2023-02-14 17:50] LABS: RBC Urine 0-2 (0-2); WBC Urine 0-2 (0-5)
== END 2023-02-14 18:19 | disposition home or self-care (01) ==
PROVIDERS: Emergency Provider Student in an Organized Health Care Education/Training Program; PCP Family Medicine
DX: R42 Dizziness and giddiness (principal)
CPT/HCPCS: 36415; 70450; 71046; 80053; 81001; 81025; 83735; 84484; 85025; 93005; 99283; 99284; 99285; A9270; J7120

== ENCOUNTER 2023-05-07 09:49 | Outpatient (CLI) | payer OTHER, SELFPAY | END 2023-05-07 09:50 | disposition home or self-care (01) | LOC: NFLDREF 05-22 16:24 | PROVIDERS: PCP Family Medicine; Referring Provider Family Medicine; Visit Provider Internal Medicine | DX: R10.32 Left lower quadrant pain (principal) | CPT/HCPCS: 87086 ==

== ENCOUNTER 2023-05-07 10:23 | Outpatient (CLI) | payer OTHER, SELFPAY ==
--- NOTE | 2023-05-07 11:30 | CT_ITS ---
Patient: PRINCE PATHAK Facility:?[facility] Patient ID:?[id number] Site Patient ID:?[id number]. Site :?1985 Study:?CT-Abdomen/Pelvis 108CC ISOVUE 370 AND WATER PREP-05/07/2023 11:11:31 AM Ordering Physician:TORO Final Report: INDICATION: Right upper quadrant and left lower quadrant pain TECHNIQUE: Axial images were obtained from the diaphragm to the pubic symphysis. Reformats were obtained in the coronal and sagittal plane. IV Contrast: 108 cc Isovue 370 Oral Contrast: Water COMPARISON: Chest, abdomen and pelvis CT 10/25/2017 FINDINGS: Lower chest: Unremarkable. Liver: Unremarkable. Normal in size and attenuation. No masses. Gallbladder and bile ducts: Unremarkable. No stones or inflammation. No biliary dilatation. Spleen: Unremarkable. Normal in size without mass. Pancreas: Unremarkable. No mass or inflammation. Adrenal glands: Unremarkable. No nodules. Kidneys: Unremarkable. No masses, stones, or hydronephrosis. Vasculature: Unremarkable. GI tract: No dilated loops of large or small intestine. Unremarkable appendix. Pelvis: Right ovarian cyst measuring 3.4 centimeters and left ovarian cyst measuring 4.8 centimeters. Trace free fluid in the deep pelvis. Bones: Unremarkable for age. IMPRESSION: 1. No dilated loops of large or small intestine. 2. Bilateral ovarian cysts measuring 4.8 centimeters on the left and 3.4 centimeters on the right. Please note that all CT scans at this facility use dose modulation, iterative reconstruction, and/or weight-based dosing when appropriate to reduce radiation dose to as low as reasonably achievable. Dictated by Mk Dela Cruz MD @ 05/07/2023 11:36:17 AM Signed by:?Mk Dela Cruz MD @05/07/2023 11:36:17 AM (Electronic Signature)
--- NOTE | 2023-05-07 12:00 | US_ITS ---
Patient: PRINCE PATHAK Facility:?[facility] Patient ID:?[id number] Site Patient ID:?[id number]. Site :?1985 Study:?US-Pelvis TRANSABDOMINAL AND TRANSVAGINAL-05/07/2023 12:12:46 PM Ordering Physician:ALONZO TOMAS Final Report: INDICATION: Abdominal pain, not otherwise described in the indication for the exam. COMPARISON: Same day CT abdomen pelvis. TECHNIQUE: Pelvic grayscale and spectral Doppler ultrasound via a transabdominal and endovaginal approach. FINDINGS: LMP: 03/28/2023 Uterus: Measures 6.3 x 5.4 x 7.9cm. Unremarkable cervix. Please note that US is insensitive for detection of epithelial lesions of the cervix, compared to physical examination. Endometrial stripe: Measures 10mm at the uterine fundus. Uniform in thickness. 3 mm anechoic unilocular posterior endometrial stripe cyst at the uterine fundus. This finding is nonspecific. Please correlate with the patient`s status. Right Ovary: Measures 3.8 x 3.1 x 4.8cm and 29mL. Anechoic unilocular cyst measuring 4.3 cm in greatest dimension. Spectral Doppler demonstrates normalarterial and venousbloodflow. Left Ovary: Measures 5.5 x 3.6 x 6.5cm and 68mL. Anechoic unilocular cyst measuring 5.0 cm in greatest dimension Spectral Doppler demonstrates normalarterial and venousbloodflow. Pelvic fluid: No significant pelvic ascites. Small volume free fluid within physiologic limits of normal. IMPRESSION: Bilateral simple ovarian cysts, the largest in the left ovary measuring 5 cm in greatest dimension for which no routine imaging surveillance is recommended in the absence of symptoms related to this finding. (Differences in measurements between this examination and the CT performed earlier today are related to technical differences between imaging modalities.) If imaging follow-up is clinically indicated then the next examination should be performed after 2 menstrual cycles to document persistence or resolution. Incidental 3 mm anechoic unilocular cyst in the endometrial stripe toward the uterine fundus, nonspecific. Please correlate with the patient`s status as a small intrauterine gestational sac is included in the differential for this finding. Dictated by Jules Omalley MD @ 05/07/2023 12:23:19 PM Signed by:?Jules Omalley MD @05/07/2023 12:23:19 PM (Electronic Signature)
== END 2023-05-07 10:24 | disposition home or self-care (01) ==
PROVIDERS: PCP Family Medicine; Visit Provider Internal Medicine
DX: R10.9 Unspecified abdominal pain (principal); N83.202 Unspecified ovarian cyst, left side; N83.201 Unspecified ovarian cyst, right side
CPT/HCPCS: 74177; 76830; 76856; 93976; Q9967

== ENCOUNTER 2023-05-08 08:20 | Day surgery (SDC) | payer OTHER, SELFPAY ==
[2023-05-08] VITALS (13 sets, daily range): BP systolic 112–145; BP diastolic 62–93; PULSE 63–95; RESP 16; TEMP 36.2–37; O2SAT 95–100; BMI 32.9
[2023-05-08 08:52] LABS: Ur HCG Qualitative* Negative (Negative)
[2023-05-08] MEDS: LACTATED RINGERS 1000 ML 1,000 ML 100 ML IV ×3 (09:38→13:08)
[2023-05-08] MEDS: SODIUM CHLORIDE 0.9 % (FLUSH) 10 ML SYRINGE IVF (09:38)
[2023-05-08] MEDS: BUPIVACAINE 0.25% 30 ML INJECTION (12:22)
--- NOTE | 2023-05-08 12:40 | W.PM.GYNPROC ---
Procedure Note Date of procedure: 05/08/23 Pre-op diagnosis: Abdominal pain, Bilat. ovarian cysts, Endometrial cyst, Undesired fertility Post-op diagnosis: same Procedure: 1. Hysteroscopy 2. D&C 3. Laparoscopy 4. Bilateral ovarian cystectomies 5. Bilateral salpingectomies Anesthesia: GETA and other (TAP block) Complications: None. Surgeon: Miki Estimated blood loss (mL): 20 Pathology: specimen obtained, sent to pathology (Endometrial curettings, left ovarian cyst wall, bilateral fallopian tubes, right ovarian cyst wall) Condition: stable Disposition: PACU Findings: Normal secretory-appearing endometrium. Normal-appearing uterus and fallopian tubes. Bilateral simple ovarian cysts, left 5 cm diameter, right 4 cm diameter, both filled with clear straw-colored fluid. Normal-appearing appendix. Adhesions between sigmoid colon and left pelvic sidewall. Procedure Description: After obtaining informed consent, the patient was taken to the operating room where general anesthesia was obtained without difficulty. She was prepared and draped in the normal sterile fashion in the dorsal lithotomy position. A Judge catheter was inserted into the bladder and left to gravity drainage. A medium Graves open-sided speculum was introduced into the vagina. The cervix was visualized and grasped along its anterior lip with a single-tooth tenaculum. The uterus was gently sounded. Sound length was 9.5 cm. The cervix was gently dilated to a #6 Hegar dilator. A hysteroscope was then advanced under direct visualization through the cervix into the uterine cavity. Sterile normal saline was used as distending medium. The uterine cavity was carefully inspected with the findings noted above. Pictures were taken for documentation purposes. The hysteroscope was then removed. The endometrial lining was then sharply curetted. The hysteroscope was removed. A Time To Cater uterine manipulator was placed without difficulty. The tenaculum and speculum were removed. I then changed gloves and my attention was turned to the abdomen. The inferior aspect of the umbilical fold was injected with 0.25% Marcaine plain. A 5 mm vertical incision was then made within the umbilical fold using a scalpel. The subcutaneous tissues were bluntly dissected with a Loraine clamp to the fascia. The fascia was grasped with 2 small Андрей clamps and elevated. The fascia was incised sharply with a Garg scissors. A direct entry technique was used to place a 5 mm laparoscopic port through the fascial defect and the underlying peritoneum with CO2 gas set to a 5 mmHg. The trocar was removed leaving the sleeve in place. The CO2 gas flow was turned to high flow to achieve pneumoperitoneum. The 5 mm laparoscope was used then to carefully inspect the abdomen and pelvis with findings noted above. Pictures were taken for documentation purposes. The patient was placed in Trendelenburg positioning. Three additional 5 mm ports were placed under direct visualization after first anesthetizing the skin and fascia with 0.25% Marcaine plain, one in the right lower quadrant, a second in the left lower quadrant, and a third four fingerbreaths lateral to the umbilical port on the right. The uterus was elevated using the uterine manipulator. The bowels were gently pushed from the pelvis cephalad. The sigmoid colon could not be completely elevated from the pelvis due to dense adhesions to the left pelvic sidewall. During the process of elevating the enlarged cystic left ovary, the cyst was ruptured. Clear, straw-colored fluid extruded from the cyst. The edges of the defect were grasped and the defect extended to about 1.5 cm. The ovarian stroma was grasped and elevated, and a Laura graspers was used to grasp the ovarian cyst wall. With traction and counter traction, the ovarian cyst wall was bluntly dissected from the ovary and removed through the right lower quadrant port. Bipolar electrocautery was used to obtain hemostasis where needed along the edges of the serosal defect in also in the cyst bed where necessary. The left fallopian tube was then identified to its fimbrial end, grasped and elevated. The LigaSure device was used to gently dissect the left fallopian tube from its ovarian, broad ligament, and cornual attachments. Excellent hemostasis was visualized. The tube was removed through the right lower quadrant port. The right fallopian tube was then identified to its fimbrial end, grasped, and elevated. The LigaSure device was used to gently dissect the right fallopian tube from its ovarian, broad ligament and cornual attachments. Excellent hemostasis was visualized. The tube was removed through the right lower quadrant port. Attention was then turned to the right ovary. The ovary was elevated using an atraumatic graspers along the right ovarian ligament. The ovary was manipulated so that the cyst was visualized where the overlying serosa was at its thinnest. Bipolar electrocautery was used to gently score across the surface of the ovarian serosa, and then to intentionally ruptured the cyst. Clear straw-colored fluid was noted to extrude from the cyst. The ovarian stroma was grasped and elevated at the cyst rupture site, and again a Laura graspers was used to grasp the ovarian cyst wall. With traction and counter traction, the ovarian cyst wall was bluntly dissected from the ovary and removed in multiple pieces through the right lower quadrant port. Bipolar electrocautery was used to obtain hemostasis were needed along the edges of the stromal defect and also in the cyst bed where necessary. The abdomen and pelvis were copiously irrigated. Hemostasis was visualized. Interceed was placed into the defect of both ovaries and wrapped slightly around the raw surfaces. All instruments were then removed under direct visualization. Pneumoperitoneum was allowed to escape. The skin at all 4 port sites was closed in a subcuticular fashion with 4-0 Vicryl. Surgical glue was then placed over the incisions. The uterine manipulator and Judge catheter were removed. The patient tolerated the procedure well. Sponge, lap, and needle counts were correct x2. The patient was taken to the recovery room awake and in stable condition.
--- NOTE | 2023-05-08 12:52 | W.ANESCHARGE ---
Anesthesia Charges Start Date/Time Anesthesia Start Date: 05/08/23 Anesthesia Start Time: 10:35 Stop Date/Time Anesthesia Stop Date: 05/08/23 Anesthesia Stop Time: 12:47
--- NOTE | 2023-05-08 12:56 | W.PM.NB ---
Nerve Block Nerve Block Time Seen by Provider: 12:37 Date Seen: 05/08/23 Type of block requested by surgeon for post-operative analgesia: TAP Side: bilateral Time out performed: Yes Verification of patient name: Yes Verification of date of : Yes Site marking: site marked Name of person performing procedure: Tj Continuous monitoring Was continuous monitoring of O2 sat, B/P, color television console monitor, recorded every 15 minutes?: Yes Procedure Checklist: sterile prep, needles and gloves Ultrasound guided. Images saved: Yes Medications given in 5ml increments after negative aspiration: Marcaine %: 0.25 mL: 30 Needle gauge: 20 and Exparel mL: 10 Patient tolerated procedure well: Yes Additional comments: Needle noted between internal oblique and transversus abdominus. Local spread visualized Block Charges Block Charge (with Pro Fee): TAP Bilateral Use of Ultrasound Machine for Block: Yes- US Guidance/pain block
--- NOTE | 2023-05-08 12:57 | W.ANESCHARGE ---
Anesthesia Charges Start Date/Time Anesthesia Start Date: 05/08/23 Anesthesia Start Time: 10:35 Stop Date/Time Anesthesia Stop Date: 05/08/23 Anesthesia Stop Time: 12:47
--- NOTE | 2023-05-10 08:07 | SUR.PHASEI ---
Pt had 2 accounts for same visit. Moved MPint RN charting from wrong account to correct one.
== END 2023-05-08 14:59 | disposition home or self-care (01) ==
PROVIDERS: Obstetrics & Gynecology; PCP Family Medicine; Visit Provider Obstetrics & Gynecology
PROC: (CPT 58662; principal; 2023-05-08 10:30)
PROC: 0UDB8ZZ Extraction of Endometrium, Via Natural or Artificial Opening Endoscopic (ICD-10-PCS; CPT 58558; 2023-05-08 10:30)
DX: N83.291 Other ovarian cyst, right side (principal); N83.292 Other ovarian cyst, left side; N85.8 Other specified noninflammatory disorders of uterus; Z30.2 Encounter for sterilization; G89.18 Other acute postprocedural pain; R10.9 Unspecified abdominal pain
CPT/HCPCS: 58558; 58662; 58661; 00840; 36415; 64488; 76942; 81025; 86850; 86900; 86901; 88302; 88305; C9290; J0330; J0665; J1100; J1170; J1630; J1885; J2250; J2405; J2704; J2710; J3010; J7120

== ENCOUNTER 2023-05-25 08:48 | Emergency (ER) | payer OTHER, SELFPAY ==
[2023-05-25 08:57] VITALS: BP 131/81; PULSE 91; RESP 18; TEMP 36.4; O2SAT 97; BMI 33.0
--- NOTE | 2023-05-25 09:13 | US_ITS ---
Patient: PRINCE PATHAK Facility:?[facility] Patient ID:?[id number] Site Patient ID:?[id number]. Site :?[id number] Study:?US-Extremity Left LEV-05/25/2023 10:11:50 AM Ordering Physician:GM BAUM Final Report: INDICATION: Leg pain and swelling TECHNIQUE: Ultrasound venous duplex lower left extremity. Compression venous exam was performed using ramirez-scale, color Doppler, and spectral Doppler analysis. COMPARISON: None. FINDINGS: Sonographic imaging demonstrates the left common femoral, deep femoral, superficial femoral, popliteal, posterior tibial and greater saphenous and the contralateral right common femoral veins to be fully compressible with normal color Doppler blood flow. IMPRESSION: Normal left lower extremity venous ultrasound, no sign of deep venous thrombosis. Dictated by Landry Colbert MD @ 05/25/2023 10:40:14 AM Signed by:?Landry Colbert MD @05/25/2023 10:40:14 AM (Electronic Signature)
--- NOTE | 2023-05-25 09:22 | ED.GENADULT ---
HPI - General Adult General Date Seen: 05/25/23 Chief complaint: Extremity Pain/Injury, Lower Stated complaint: possible blood clot, left leg Time Seen by Provider: 05/25/23 09:36 Source: patient Mode of arrival: ambulatory Limitations: no limitations History of Present Illness HPI narrative: Patient is a 37-year-old female presenting for left lower extremity swelling and pain. Roughly 3 weeks ago she had ovarian cyst removals. He has been doing well since then other than noticing an area of swelling to her left lower extremity. She is also having pain associated with it since last night. She was concerned about a possible blood clot due to the symptoms. Denies shortness of breath. Does states she had a very brief episode of chest pain at left upper chest yesterday that quickly resolved and has not come back. She describes that pain as sharp in nature. Denies fevers, chills, abdominal pain, headache, vision changes lightheadedness, dizziness. No other concerns noted at this time. Denies having symptoms like this before. Related Data Home Medications Medication Instructions Recorded Confirmed lactobacillus combination no.4 3 3,000 mmu cells PO QDAY 05/07/23 05/24/23 billion cell capsule (Probiotic) Previous Rx's Medication Instructions Recorded omeprazole 20 mg capsule,delayed 20 mg PO QDAY #90 caps 03/23/22 release fluoxetine 20 mg capsule 20 mg PO QDAY #180 caps 09/20/22 dextroamphetamine-amphetamine 10 10 mg PO .PRN #60 tabs 11/07/22 mg tablet (Adderall) Allergies Allergy/AdvReac Type Severity Reaction Status Date / Time indomethacin AdvReac Unknown Nausea Verified 05/24/23 13:51 Review of Systems Status of ROS: Reports: 10 or more systems reviewed and unremarkable except as noted in History and below [facility] Medical History Oral candidiasis ?B37.0 - Candidal stomatitis (ICD-10) Abdominal pain ?R10.9 - Unspecified abdominal pain (ICD-10) Obesity (BMI 30.0-34.9) ?E66.9 - Obesity, unspecified (ICD-10) Aspiration pneumonia ?J69.0 - Pneumonitis due to inhalation of food and vomit (ICD-10) Pneumonia ?J18.9 - Pneumonia, unspecified organism (ICD-10) Chronic GERD ?K21.9 - Gastro-esophageal reflux disease without esophagitis (ICD-10) Moderate obstructive sleep apnea (~2020) ?G47.33 - Obstructive sleep apnea (adult) (pediatric) (ICD-10) 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) ?F33.0 - Major depressive disorder, recurrent, mild (ICD-10) Hx of bulimia nervosa ?Z86.59 - Personal history of other mental and behavioral disorders (ICD-10) Vitamin D deficiency (02/2021) ?E55.9 - Vitamin D deficiency, unspecified (ICD-10) Chronic low back pain with sciatica ?M54.40 - Lumbago with sciatica, unspecified side (ICD-10) ?G89.29 - Other chronic pain (ICD-10) Anxiety ?F41.9 - Anxiety disorder, unspecified (ICD-10) ADHD ?F90.9 - Attention-deficit hyperactivity disorder, unspecified type (ICD-10) Surgical History History of esophagogastroduodenoscopy (EGD) ?Z98.890 - Other specified postprocedural states (ICD-10) History of third molar tooth extraction (2009) ?K08.409 - Partial loss of teeth, unspecified cause, unspecified class (ICD-10) Family History Mother Alcohol dependence Colon cancer High blood pressure Father Alcohol dependence Depression Aunt Diabetes Family/Other Diabetes Maternal Grandmother Pancreatic cancer Other Chronic low back pain with sciatica Social History Narrative: , 2 kids ages 15 and 10. 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 Smoked off and on for 15-20 years. 09/2021 Does not exercise on regular basis Smoking Status: Former smoker Do you use any of these nicotine containing products: Vaping Products Nicotine containing products detail: on and off How often do you have a drink containing alcohol: 2-4 times a month Alcohol type: beer How many standard drinks containing alcohol do you have on a typical day: 1 or 2 How often do you have six or more drinks on one occasion: Never AUDIT-C Alcohol total score: 2 Non-prescribed substance use: denies use Caffeine: Yes (4-5 times a week) Little interest or pleasure in doing things: several days Feeling down, depressed, or hopeless: several days service: No Exam Narrative: Exam Narrative: Const: Well-nourished, Well-developed, in mild distress Eyes: PERRL, no conjunctival injection, and symmetrical lids HENT: Atraumatic external nose and ears. Moist mucous membranes. Neck: Symmetric, trachea midline, No thyromegaly. CVS: RRR, No murmurs or gallops. Peripheral pulses 2+ and equal in all extremities RESP: Unlabored respiratory effort. Clear to auscultation bilaterally. GI: Nontender/Nondistended, No rebound or guarding. MSK:Extremities w/o deformity, Normal Active ROM, mild swelling to lateral aspect of the left lower extremity with tenderness to that area also Skin: Warm, Dry. No rashes or lesions. Neuro: Normal Muscle tone, No focal neurological deficits. Psych: Awake, Alert, & Oriented x3. Appropriate mood and affect. Const: Vital Signs, click to edit/add: Vital Signs - 24 hr 05/25/23 08:57 Temperature 97.6 F Pulse Rate [Right Pulse Oximeter] 91 Respiratory Rate 18 Blood Pressure [Ri ght Upper Arm] 131/81 Pulse Oximetry 97 Oxygen Delivery Me thod Room Air Course Vital Signs Vital signs: Initial Vital Signs Temperature 97.6 F 05/25/23 08:57 Temperature Source Temporal Artery Scan 05/25/23 08:57 Pulse Rate 91 05/25/23 08:57 Respiratory Rate 18 05/25/23 08:57 Blood Pressure 131/81 05/25/23 08:57 Blood Pressure Mean 97 05/25/23 08:57 Blood Pressure Position Sitting 05/25/23 08:57 Pulse Oximetry 97 05/25/23 08:57 Oxygen Delivery Method Room Air 05/25/23 08:57 Vital Signs Temperature 97.6 F 05/25/23 08:57 Pulse Rate 91 05/25/23 08:57 Respiratory Rate 18 05/25/23 08:57 Blood Pressure 131/81 05/25/23 08:57 Pulse Oximetry 97 05/25/23 08:57 Oxygen Delivery Method Room Air 05/25/23 08:57 Temperature 97.6 F 05/25/23 08:57 Pulse Rate 91 05/25/23 08:57 Respiratory Rate 18 05/25/23 08:57 Blood Pressure 131/81 05/25/23 08:57 Pulse Oximetry 97 05/25/23 08:57 Oxygen Delivery Method Room Air 05/25/23 08:57 Medical Decision Making MDM Narrative Medical decision making narrative: Patient is a 37-year-old female presenting to emergency department for left lower extremity pain and swelling. While the presentation does not seem is typical for a blood clot with her recent surgery we will do an ultrasound. Considering she also had this mild chest pain I did consider concern for pulmonary embolism but she otherwise has not had any more symptoms right at since then and has no concerning vital signs. If this ultrasound is normal I believe I could reasonably states she does not have a PE. Ultrasound returned showing no concerning abnormalities. Patient be discharged home at this time. She is agreeable to this plan. Imaging Data Venous US: Radiologist's impression: Normal left lower extremity venous ultrasound, no sign of deep venous thrombosis. Dictated by Landry Colbert MD @ 05/25/2023 10:40:14 AM Discharge Plan Discharge Clinical Impression: Localized swelling of lower leg Patient Disposition: Home, Self-Care Condition: Stable Instructions: Leg Edema (ED) Additional Instructions: Take Tylenol ibuprofen for pain. Return to emergency department for new or worsening symptoms Prescriptions: No Action fluoxetine 20 mg capsule 20 mg PO QDAY Qty: 180 2RF omeprazole 20 mg capsule,delayed release(DR/EC) 20 mg PO QDAY Qty: 90 4RF Probiotic 3 billion cell capsule 3,000 mmu cells PO QDAY Rx Instructions: administer with a meal dextroamphetamine-amphetamine [Adderall] 10 mg tablet 10 mg PO .PRN Qty: 60 0RF Rx Instructions: administer doses at least 4-6 hours apart Follow Up/Referrals: Vandana Copeland MD [Primary Care Provider] - Stand Alone Forms: [employer] Plan Info Instructions
== END 2023-05-25 11:22 | disposition home or self-care (01) ==
PROVIDERS: Emergency Provider Student in an Organized Health Care Education/Training Program; PCP Family Medicine
DX: R60.9 Edema, unspecified (principal)
CPT/HCPCS: 93971; 99282; 99283; 99284

== ENCOUNTER 2023-06-20 13:00 | Emergency (ER) | payer OTHER, SELFPAY ==
[2023-06-20 13:33] VITALS: BP 143/99; PULSE 87; RESP 18; TEMP 36.5; O2SAT 100; BMI 31.6
--- OUTSIDE RECORDS SUMMARY | 2023-06-20 14:08 | XMS_ITS | Continuity of Care Document ---
Author Name Unknown Organization [facility] Address [address] [place] [address] Phone Care Team Providers Care Senior Sales Operations Analyst Name Role Phone Daniel Washington MD Unavailable Unavailable Allergies, Adverse Reactions, Alerts Substance Reaction Status Criticality CEFTRIAXONE SODIUM Active No Inform ation Medications Medication Instructions Dosage Effective Dates (start - stop) Status Comments naproxen 500 mg tablet take 1 tablet by oral route 2 times every day with food 500 MG - Active omeprazole 20 mg tablet,delayed release take 1 Tablet by Oral route every day 1 Tablet - Active FISH OIL (unknown strength) Not Available - Active Vitamin D3 50 mcg (2,000 unit) tablet take 1 Tablet by Oral route every day 1 Tablet - Active Adderall XR 20 mg capsule,extended release take 1 capsule by oral route every day in the morning upon awakening 20 MG - Active norgestimate 0.25 mg-ethinyl estradiol 35 mcg tablet take 1 tablet by oral route every day 1.00 tablet - Active fluoxetine 20 mg tablet take 1 tablet by oral route every day in the morning 20 MG - Active Procedures Procedure Date Office/Outpatient Visit, [...] suspected, a test for HCV RNA(test code 79498) is suggested. For additional information please refer [email or web address].Lailaihui/fa [email or web address](This link is being provided for informational/ educational purposes only.) Advance Directives Directive Yes / No Effective Date File Name No Information Encounters Encounter Description Practice Location Reason(s) For Visit Diagnoses Date Provider Providers Copied on Encounter Office/Outpa tient Visit, [facility], [address], [place], [address], [place] tel:[phone] [facility], low back pain (chief complaint) Low back pain 3 Padmini Sanchez. [facility] [address], [place], [address], [place]. tel:[phone] Referring Provider: Daniel Torres, [facility] [address], [place], [address]. tel:[phone] Family History Family Member Type Diagnosis Age At Onset Maternal aunt Problem rheumatoid arthritis Maternal aunt Problem Systemic lupus erythematosu s Payers Payer name Insurance type Covered constitution party ID Authoriza tion(s) [employer] CI [id number] Social History Type Description Quantity Date Captured [...]
--- OUTSIDE RECORDS SUMMARY | 2023-06-20 14:08 | XMS_ITS | Referral Summary ---
Author Name Unknown Organization [facility] Address [address] [place] [address] Care Team Providers Care Morphologist Name Role Phone None Reported, Pcp Primary Care Provider Unavail able Source Comments Patient records contain information from all sites at [facility]. For routine questions regarding patient records, call [phone] during business hours, M-F 8:00 AM - 5:00 PM Central Time. Record requests for emergency care only can be directed to [phone] at any time.[facility] Encounters Date Type Department Care Team Description 06/14/2023 3:04 PM CDT - 06/14/2023 5:47 PM CDT Emergency [facility] [address] [place] [address] [phone] Wayne Barbosa APRN, C.N.P., D.N.P. Edema Leg (Primary Dx); Edema Peripheral Discharge Disposition: Home or Self Care from Last 3 Months Allergies Active Allergy Reactions Criticality Noted Date Comments Indomethacin GI intolerance,Itching,Nausea Only 12/16/2012 Medications Medication Sig Dispensed Refills Start Date End Date Status FLUoxetine (PROzac) 20 mg tablet Take by mouth daily. 0 Active furosemide (LASIX) 20 mg tablet Take 1 tablet (20 mg total) by mouth daily. 3 tablet 0 06/14/2023 Active Active Problems Problem Noted Date Diagnosed Date Gastroesophageal Reflux Disease 06/14/2023 Pain Low Back Chronic 06/14/2023 Dependence Nicotine 08/01/2012 Attention Deficit Hyperactive Disorder 2 Depressive Disorder 05/23/2011 Anxiety Generalized Disorder 05/16/2011 Overview: Rule out ADD Deficiency Vitamin D 03/12/2011 Immunizations Name Administration Dates Next Due Tdap 09/12/2009 Social History Tobacco Use Types Packs/Day Years Used Date Smoking Tobacco: Former Tobacco Cessation:Counseling Given: Not Answered Nutrition Answer Date Recorded Nutrition: EVOO Fat Source Unknown 06/13 Nutrition: Servings of Fruits/Vegetables per Day Not on file 06/14/2023 Dental Answer Date Recorded Dental: Regular Dentist Unknown 06/14/19 Sex and Gender Information Value Date Recorded Sex Assigned at Not on file Gender Identity Not on file Sexual Orientation Not on file Last Filed Vital Signs Vital Sign Reading Time Taken Comments Blood Pressure 112/72 06/14/2023 5:22 PM CDT Pulse 72 06/14/2023 5:22 PM CDT Temperature 36.5 ??C (97.7 ??F) 06/14/2023 5:22 PM CD T Respiratory Rate 18 06/14/2023 5:22 PM CDT Oxygen Saturation 100% 06/14/2023 5:22 PM CDT Inhaled Oxygen Concentration - - Weight 90.7 kg (199 lb 15.3 oz) 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/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 Height - - Body Mass Index - - Plan of Treatment Not on file Procedures Procedure Name Priority Date/Time Associated Diagnosis Comments ECG Routine 06/14/2023 3:43 PM CDT NT-PRO B-TYPE NATRIURETIC PEPTIDE (BNP), S STAT 06/14/2023 3:30 PM CDT D-DIMER, P STAT 06/14/2023 3:30 PM CDT COMPREHENSIVE METABOLIC PANEL, S/P STAT 06/14/2023 3:30 PM CDT CBC WITH DIFFERENTIAL, B STAT 06/14/2023 3:30 PM CDT from Last 3 Months Results * ECG 12 Lead (06/14/2023 3:43 PM CDT) Ventricular Rate ECG/Min 77 BPM MUSE VT Interval 156 ms MUSE QRSD Interval 96 ms MUSE QT Interval 384 ms MUSE QTC Interval 434 ms MUSE P [place] 42 degrees MUSE R [place] 31 degrees MUSE T Wave [place] 33 degrees MUSE 06/14/2023 3:43 PM CDT 06/14/2023 4:22 PM CDT Impressions MUSE - 06/14/2023 3:55 PM CDT Normal sinus rhythm Low voltage QRS Probably normal ECG variant No previous ECGs available Revised Report Narrative Procedure Note Torito Mullen Jr., M.D. - 06/14/2023 IMPRESSION: Normal sinus rhythm Low voltage QRS Probably normal ECG variant No previous ECGs available Revised Report Nereyda Maguire APRN.N.PJanel, D.N.P. ECG ORDERABLES MUSE NA * NT-Pro B-Type Natriuretic Peptide (BNP) (06/14/2023 3:30 PM CDT) NT-Pro BNP 83 <160 pg/mL 06/14/2023 4:02 PM CDT CNFL Comment: NT-proBNP values less than 300 pg/mL have a 99% negative predictive value for excluding acute congestive heart failure. A cutoff of 1200 pg/mL for patients with an eGFR<60 yields a diagnostic sensitivity and specificity of 89% and 72% for acute congestive heart failure. NT-proBNP values greater than 450 pg/mL are consistent with CHF in adults under 50 years of age. Blood (Blood, Venous) 06/14/2023 3:30 PM CDT 06/14/2023 3:32 PM CDT Nereyda Maguire APRN.N.P., D.N.P. LAB BLOOD ADD-ON [facility] [address] [place] [id number], [place] CNFL [facility] in [address] [address] * D-Dimer (06/14/2023 3:30 PM CDT) D-Dimer, P 315 <=500 ng/mL FEU 06/14/2023 5:12 PM CDT CNFL Comment: ----ADDITIONAL INFORMATION---- D-dimer values less than or equal to 500 ng/mL fibrinogen equivalent units (FEU) may be used in conjunction with clinical pre-test probability to exclude deep vein thrombosis (DVT) and/or pulmonary embolism (PE). Blood (Blood, Venous) 06/14/2023 3:30 PM CDT 06/14/2023 3:32 PM CDT Wayne Barbosa APRN, C.N.P., D.N.P. LAB BLOOD ADD-ON [facility] [address] [place] [address], [facility] CNFL [facility] [place] [address] * CBC with Differential, Blood (06/14/2023 3:30 PM CDT) [facility] Hemoglobin 13.8 11.6 - 15.0 g/dL 06/14/2023 4:30 PM CDT CNFL Hematocrit 41.0 35.5 - 44.9 % 06/14/2023 4:30 PM CDT CNFL Erythrocytes 4.53 3.92 - 5.13 x10(12)/L 06/14/2023 4:30 PM CDT CNFL MCV 90.5 78.2 - 97.9 fL 06/14/2023 4:30 PM CDT CNFL RBC Distrib Width 12.5 12.2 - 16.1 % 06/14/2023 4:30 PM CDT CNFL Platelet Count 308 157 - 371 x10(9)/L 06/14/2023 4:30 PM CDT CNFL Leukocytes 9.2 3.4 - 9.6 x10(9)/L 06/14/2023 4:30 PM CDT CNFL Neutrophils 6.27 1.56 - 6.45 x10(9)/L 06/14/2023 4:30 PM CDT CNFL Lymphocytes 2.06 0.95 - 3.07 x10(9)/L 06/14/2023 4:30 PM CDT CNFL Monocytes 0.76 0.26 - 0.81 x10(9)/L 06/14/2023 4:30 PM CDT CNFL Eosinophils 0.08 0.03 - 0.48 x10(9)/L 06/14/2023 4:30 PM CDT CNFL Basophils <0.04 0.01 - 0.08 x10(9)/L 06/14/2023 4:30 PM CDT CNFL Blood (Blood, Venous) 06/14/2023 3:30 PM CDT 06/14/2023 3:32 PM CDT Wayne Barbosa APRN, C.N.P., D.N.P. LAB BLOOD ADD-ON Performing Organization Address City/State/[facility] Co de Phone Number [facility] [address] [place] [address], [facility] CNFL [facility] [place] [address] * Comprehensive Metabolic Panel (06/14/2023 3:30 PM CDT) Potassium, P 4.1 3.6 - 5.2 mmol/L 06/14/2023 3:54 PM CDT CNFL Sodium, P 141 135 - 145 mmol/L 06/14/2023 3:54 PM CDT CNFL Chloride, P 104 98 - 107 mmol/L 06/14/2023 3:54 PM CDT CNFL Bicarbonate, P 26 22 - 29 mmol/L 06/14/2023 3:54 PM CDT CNFL Anion Gap, P 11 7 - 15 06/14/2023 3:54 PM CDT CNFL BUN (Blood Urea Nitrogen), P 11 6 - 21 mg/dL 06/14/2023 3:54 PM CDT CNFL Creatinine 0.61 0.59 - 1.04 mg/dL 06/14/2023 3:54 PM CDT CNFL Estimated GFR (eGFR) >90 >=60 mL/min/BS A 06/14/2023 3:54 PM CDT CNFL Comment: Estimated GFR calculated using the 2020 CKD_EPI creatinine equation. Calcium, Total, P 9.5 8.6 - 10.0 mg/dL 06/14/2023 3:54 PM CDT CNFL Glucose, P 96 70 - 140 mg/dL 06/14/2023 3:54 PM CDT CNFL Protein, Total, P 7.8 6.3 - 7.9 g/dL 06/14/2023 3:54 PM CDT CNFL Albumin, P 4.3 3.5 - 5.0 g/dL 06/14/2023 3:54 PM CDT CNFL Aspartate Aminotransferase (AST), P 21 8 - 43 U/L 06/14/2023 3:54 PM CDT CNFL Alkaline Phosphatase, P 80 35 - 104 U/L 06/14/2023 3:54 PM CDT CNFL Alanine Aminotransferase (ALT), P 23 7 - 45 U/L 06/14/2023 3:54 PM CDT CNFL Bilirubin, Total, P 0.2 0.0 - 1.2 mg/dL 06/14/2023 3:54 PM CDT CNFL Blood (Blood, Venous) 06/14/2023 3:30 PM CDT 06/14/2023 3:32 PM CDT Wayne Barbosa APRN, C.N.P., D.N.P. LAB BLOOD ADD-ON [facility] [address] [place] [address], [facility] CNFL [facility] in [address] [address] from Last 3 Months Care Teams Morphologist Relationship Specialty Start Date End Date None Reported, Pcp PCP - General Family Medicine 06/14/23
--- OUTSIDE RECORDS SUMMARY | 2023-06-20 14:08 | XMS_ITS | Clinical Summary ---
Author Name Unknown Organization [facility] Address [address] [place] [address] Care Team Providers Care Gin Pole Operator Name Role Phone None Reported, Pcp Primary Care Provider Unavail able Source Comments Patient records contain information from all sites at [facility]. For routine questions regarding patient records, call [phone] during business hours, M-F 8:00 AM - 5:00 PM Central Time. Record requests for emergency care only can be directed to [phone] at any time.[facility] Allergies Active Allergy Reactions Criticality Noted Date [...] Rule out ADD Deficiency Vitamin D 03/12/2011 Encounters Date Type Department Care Team Description 06/14/2023 3:04 PM CDT - 06/14/2023 5:47 PM CDT Emergency [facility] [address] [place] [phone] Wayne Barbosa APRN, C.N.P., D.N.P. 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 - 06/14/2023 IMPRESSION: Normal sinus rhythm Low voltage QRS Probably normal ECG variant No previous ECGs available Revised Report Bhargav Maguire APRNN.P., D.N.P. ECG ORDERABLES Performing Organization Address City/[facility]/ZIP Co de Phone Number MUSE NA * NT-Pro B-Type Natriuretic Peptide [...] Nereyda Maguire APRN.N.P., D.N.P. LAB BLOOD ADD-ON [facility] [address] [place] [phone], [facility] CNFL [facility] in [address] [address] * D-Dimer (06/14/2023 3:30 PM CDT) D-Dimer, [...] Barbosa APRN, C.N.P., D.N.P. LAB BLOOD ADD-ON [facility] [address] [place] [address], [facility] CN[facility] [place] [address] * CBC with Differential, Blood (06/14/2023 3:30 PM CDT) Hemoglobin 13.8 11.6 - 15.0 g/dL 06/14/2023 [...] D.N.P. LAB BLOOD ADD-ON Performing Organization Address City/State/[facility] Co de Phone Number [facility] [address] [place] [address], [facility] CNFL [facility] [place] [address] * Comprehensive Metabolic Panel (06/14/2023 3:30 PM [...] D.N.P. LAB BLOOD ADD-ON Performing Organization Address [facility]/State/ZIP Co de Phone Number [facility] [address] [place] [phone], [facility] CNFL [facility] in [address] [address] from Last 3 Months Care Teams Gin Pole Operator Relationship Specialty Start Date End Date None Reported, Pcp PCP - General Family Medicine 06/14/23
--- OUTSIDE RECORDS SUMMARY | 2023-06-20 14:08 | XMS_ITS ---
Author Name Unknown Organization [facility] Address [address] [place] [address] Care Team Providers Care Slitter Cut Off Operator Name Role Phone Unavailable Unavailable Unavailable Surgery Details Not on file Complications Check Surgery Details section. Procedure Estimated Blood Loss Check Surgery Details section. Procedure Findings Check Surgery Details section. Procedure Specimens Taken Check Surgery Details section.
--- OUTSIDE RECORDS SUMMARY | 2023-06-20 14:08 | XMS_ITS | Clinical Summary ---
Author Name Unknown Organization [employer] [facility] Address [place], [place] [address] Care Team Providers Care Nursery Teacher Name Role Phone AjayBrynn rico MD Primary Care Provider Allergies Active Allergy Reactions Criticality Noted Date Comments Indomethacin Itching,Nausea Only 12/16/2012 Medications Medication Sig Dispensed Refills Start Date End Date Status cholecalciferol (VITAMIN D-3) 1,000 unit tablet Take 1 tablet by mouth once daily. For 6 weeks 42 tablet 0 05/15/2012 Active LORazepam (ATIVAN) 0.5 mg TabIndications:Depre ssion with anxiety Take 1 tablet by mouth every 6 hours if needed for Anxiety. Use for flight anxiety. 10 tablet 0 06/26/2012 Active dextroamphetamine-am phetamine (ADDERALL) 5 mg tablet Take 1 tablet by mouth once daily if needed for Other (Specify). 30 tablet 0 02/02/2013 Active fluticasone (50 mcg per actuation) nasal solution (FLONASE) Inhale 2 Sprays into both nostrils once daily. 1 Bottle 11 03/27/2013 Active sertraline (ZOLOFT) 100 mg tabletIndications:An xiety state, unspecified Take 1 tablet by mouth once daily. 90 tablet 3 03/27/2013 Active levonorgestrel-ethin yl estrad, 0.1-20 mg-mcg, (AVIANE) 0.1-20 mg-mcg tablet Take 1 tablet by mouth once daily. 84 tablet 3 03/27/2013 Active dextroamphetamine-am phetamine (ADDERALL XR) 10 mg Extended-Release capsuleIndications:A ttention deficit disorder with hyperactivity(314.01 ) Take 1 capsule by mouth every morning. 30 capsule 0 03/27/2013 Active dextroamphetamine-am phetamine (ADDERALL XR) 30 mg Extended-Release capsule Take 1 capsule by mouth every morning. 30 capsule 0 04/21/2013 Active Active Problems Problem Noted Date Diagnosed Date Nicotine dependence 08/01/2012 Attention deficit disorder with hyperactivity(31 4.01) 05/23/2011 Depressive disorder, not elsewhere classified Anxiety state, unspecified 05/16/2011 Overview: Rule out ADD Vitamin D deficiency 03/12/2011 Resolved Problems Problem Noted Date Diagnosed Date Resolved Date Supervision of normal first 05/21/2007 12/01/2010 Encounters Date Type Department Care Team Description 05/08/2023 Lab Requisition [facility] [phone] Jayde Livingston MD from Last 3 Months Immunizations Name Administration Dates Next Due DTP 09/16/1992, 9,01/04/1988,1987, 1987 Hepatitis B (Peds) 05/22/1999,12/19/1998, 999 Hib Conjugate, Unspecified 05/15/1991 Human Papilloma Virus Vaccine 12/01/2010 Influenza, IIV3 (Age >=3 years) 01/07/2008 MMR 11/17/1998,12/10/1988 Oral Polio Vaccine 09/16/1992,12/10/1988, 988,1987 Td (Age >=7 Years) 12/19/1998 Tdap 09/12/2009 Tuberculin (PPD) 09/27/2009 Family History Medical History Relation Name Comments Psychiatric illness Father he is adopted anxiety /depression Good Health Maternal Grandfather Alcohol/Drug Mother Hypertension Mother Relation Name Status Comments Father he is adopted Alive Maternal Grandfather Alive Maternal Grandmother (Age 65) pamella ng [place] Mother Alive Paternal Grandmother adopted Alive Social History Tobacco Use Types Packs/Day Years Used Date Smoking Tobacco: Some Days Cigarettes 0.2 4 Smokeless Tobacco: Never Tobacco Cessation:Counseling Given: Yes Comments:smokes 3 per day. Alcohol Use Standard Drinks/Week Comments Yes 0 (1 standard drink = 0.6 oz pur e alcohol) occas Sex and Gender Information Value Date Recorded Sex Assigned at Not on file Gender Identity Not on file Sexual Orientation Not on file Obstetrics History Para Term AB IAB SAB Ectopic Multiple Livin g Live Births 1 0 0 0 1 1 0 0 0 0 1 Date Outcome GA Total Labor Labor/2nd/3rd Weight Sex Delivery Anes PTL Gillian A1 A5 Name Cl in 11/09 IAB 5w0 d ELECTIVE AB Dece ased Last Filed Vital Signs Vital Sign Reading Time Taken Comments Blood Pressure 126/83 03/27/2013 11:08 AM [employer]ARD [employer]ILL SUPER[employer] Pulse 84 03/27/2013 11:08 AM [employer] Temperature 36.8 ??C (98.3 ??F) 03/27/2013 11:[address] Respiratory Rate 18 01/11/2010 10:59 AM CDT Oxygen Saturation 99% 03/27/2013 11:08 AM [employer] SUPER[employer] Inhaled Oxygen Concentration - - Weight 72.2 kg (159 lb 3.2 oz) 03/27/2013 11:08 AM [employer] MILL SUPER[employer] Height 177.8 cm (5' 10) 03/27/2013 11:08 AM [employer] SUPER[employer] Body Mass Index 22.84 03/27/2013 11:08 AM [employer] SUPERVISOR Plan of Treatment Health Maintenance Due Date Last Done Comments Depression screening for age 12+ 1999 BMI (ht and wt on same day) for age 18+ 06/30/2005 Hepatitis C screening for age 18-79 06/30/2005 Tetanus booster 09/13/2019 09/12/2009, 12/19/1998 Pap test for age 21-65 10/28/2021 9, 10/28/2018, 10/07/2015, Additional history exists COVID-19 vaccine series (2022-24 season) 2022 Influenza for age 9-49 11/10/2023 01/07/2008 HIV for age 15-65 Completed 05/21/2007 Tdap Completed 09/12/2009 Pneumococcal series for age 6-64 Aged Out No longer eligible based on patient's age to complete this topic Procedures Procedure Name Priority Date/Time Associated Diagnosis Comments LAB TRACKING EVENT Routine 05/08/2023 12 :44 PM [employer]PER[employer] PATH TISSUE EXAM Routine 05/08/2023 11:1 5 AM [employer] SUPER[employer] CUFF FOLDER THIN PREP PAP SCREEN IMAGED Routine 10/28/2018 11:00 AM CDT ANTI HIV 1/2 Routine 05/21/2007 11:53 AM CDT Supervision Of Normal First from Last 3 Months or Most Recently Relevant to Health Maintenance Results * LAB TRACKING EVENT (05/08/2023 12:44 PM [employer]ARD M[employer] SUPER[employer]) Other (Other) Client Collect / Unknown 05/08/2023 12:44 PM [employer] M[employer] SUPER[employer] 05/08/2023 9:16 PM [employer] SUPER[employer] Jyade Livingtson MD LAB BILL ONLY [facility] [address] [place] [address], * PATH TISSUE EXAM (05/08/2023 11:15 AM BOARD MILL SUPERVISOR) Case Report Pathology Report ?Case: [id number] ? Authorizing Provider: ??Jayde Livingston MD ?Collected: ? 05/08/2023 1115 ? Ordering Location: ? [facility] ?Received: ?05/09/2023 0802 ? Pathologist: ? Anjelica Bernal MD ? Specimens: ?? A) - Endometrial Curettings ? B) - Left Ovarian Cyst ? C) - Bilateral Fallopian Tubes ? D) - Right Ovarian Cyst ? 05/10/2023 3:18 PM BOARD MILL SUPERVISOR [facility] Final Diagnosis A) ENDOMETRIUM, CURETTAGE: 1. Secretory endometrium 2. Negative for chronic endometritis 3. Negative for hyperplasia, atypia, and malignancy B) LEFT OVARIAN CYST, CYSTECTOMY: 1. Benign luteal cyst 2. Negative for malignancy C) RIGHT AND LEFT FALLOPIAN TUBES, BILATERAL SALPINGECTOMY: 1. Right fimbriated fallopian tube with no significant histologic abnormality 2. Left fimbriated fallopian tube with no significant histologic abnormality 3. Negative for malignancy D) RIGHT OVARIAN CYST, CYSTECTOMY: 1. Hemorrhagic luteal cyst 2. Negative for malignancy 05/10/2023 3:18 PM BOARD MILL SUPERVIS[employer] [facility] Clinical Information Ovarian cysts 05/10/2023 3:18 PM [facility] LABORATORY Gross Description A) Received in formalin, labeled with the patient's name and endometrial curettings, is a Telfa pad with a 2 x 2 x 0.3 cm aggregate of underwood tissue, entirely submitted in 1 cassette. B) Received in formalin, labeled with the patient's name and left ovarian cyst wall, is a 3.5 x 1 x 0.1 cm underwood and hemorrhagic fibromembranous tissue without papillations or solid areas. ??The entire specimen is submitted in 3 cassettes. C) Received in formalin, labeled with the patient's name and right and left fallopian tubes, are 2 nonoriented fimbriated fallopian tubes averaging 8 cm length and 0.8 cm diameter. ??1 tube is arbitrarily inked blue. ??Each tube has focal adhesions and a patent stellate lumen throughout. ??[employer] sections are submitted as follows: 1, 2. ??[employer]ist cross-sections and entire fimbriated end of blue inked tube 3, 4. ??[employer] Specialist cross-sections and entire fimbriated end of noninked tube D) Received in formalin, labeled with the patient's name and right ovarian cyst, is a 2 x 1.2 x 0.1 cm aggregate of portions of underwood fibromembranous tissue with no papillations or solid areas. ??The specimen is entirely submitted in 2 cassettes. TRB 05/09/2023 05/10/2023 3:18 PM BOARD MILL SUPERVISOR [facility]- ENTRAL LAB[facility]ORY Microscopic Description The final diagnosis is based on microscopic examination of appropriate sections of all specimens. 05/10/2023 3:18 PM BOARD MILL SUPERVISOR [facility] Additional Information Interpreted at [facility] - [address], [place] [address] 05/10/2023 3:18 PM BOARD MILL SUPERVISOR [facility] Other (Endometrial Curettings) 05/08/2023 11:15 AM [employer] MILL SUPERVISOR 05/09/2023 8:02 AM [employer] MILL SUPERVISOR Specimen (specimen) (Left Ovarian Cyst) 05/08/2023 11:29 AM [employer] MILL SUPERVISOR 05/09/2023 8:02 AM [employer] SUPERVISOR Specimen (specimen) (Bilateral Fallopian Tubes) 05/08/2023 11:39 AM BOARD MILL SUPERVISOR 05/09/2023 8:02 AM [employer] MILL SUPERVISOR Specimen (specimen) (Right Ovarian Cyst) 05/08/2023 12:05 PM [employer] SUPERVISOR 05/09/2023 8:02 AM BOARD M[employer] SUPERVISOR Jayde Livingston MD PATHOLOGY/CY[facility]OLOGY [facility] [address] [place] [address], * CUFF FOLDER THIN PREP PAP SCREEN IMAGED (10/28/2018 11:00 AM CDT) Case Report Gynecologic Cytology Report ? Case: [id number] ? Authorizing Provider: ??Miri Neal MD ?Collected: ? 10/28/2018 1100 ? Ordering Location: ? [facility] ?Received: ?10/29/2018 1205 ? First Screen: ?Ace Araujo ? Specimen: ?CUFF FOLDER ThinPrep Vial Screening, Cervical/Vaginal ? 11/06/2018 2:33 PM CDT [facility]- [facility]AT[facility] INTERPRETATION/ RESULT NEGATIVE FOR INTRAEPITHELIAL LESION OR MALIGNANCY (NIL) (none) 11/06/2018 2:33 PM CDT [facility] IMEN ADEQUACY Satisfactory for evaluation Endocervical component present Scant cellularity 11/06/2018 2:33 PM CDT [facility] HPV REQUEST HPV and PAP 11/06/2018 2:33 PM CDT [facility] Date of LMP 10/21/2018 11/06/2018 2:33 PM CDT [facility] Last Pap Date 10/07/2015 11/06/2018 2:33 PM CDT [facility] Last Pap Result NIL 9 2:33 PM CDT [facility] Automated Review Successful 11/06/2018 2:33 PM CDT [facility] Comment:Specimen processed s uccessfully by automated ticket dispenser changer device, NICE[employer] Imaging System, [employer] ANCILLARY TESTING CUFF FOLDER HPV Ordered, Please see separate report 11/06/2018 2:33 PM CDT [facility] Note The pap test is a screening technique, not a diagnostic procedure. ??It is used primarily to screen for squamous cancers and precursor lesions. ??Published studies have shown that it is subject to both false negative and false positive results. ??The pap test should not be used as the sole means to diagnose or exclude pre-malignant and malignant lesions. Cytology is screened and interpreted at [facility] - [address], [place] [address] and [facility] - [address]; [place] [address] and [facility] - [address]; [place] [address] and [facility] [address]; [place] [address] 11/06/2018 2:33 PM CDT [facility] Other (Cervical/Vagina l) 10/28/2018 11:00 AM CDT 10/29/2018 12:05 PM CDT Miri Neal MD PATHOLOGY/CYTOLOGY [facility] [address] [place] [address], * ANTI HIV 1/2 (05/21/2007 11:53 AM CDT) ANTI HIV 1/2 Non-reacti ve [facility] Blood specimen (specimen) BLOOD SPECIMEN / Unknown 05/21/2007 11:53 AM CDT 05/21/2007 11:49 AM CDT Abraham Slater MD SEND OUTS [facility] INTERNAL ZIP [id number] [address] [address] from Last 3 Months or Most Recently Relevant to Health Maintenance Care Teams Nursery Teacher Relationship Specialty Start Date End Date Brynn Moss MD [address] [place] [address] PCP - General Family Practice 11/20/10
--- OUTSIDE RECORDS SUMMARY | 2023-06-20 14:08 | XMS_ITS | Encounter Summary ---
Author Name Unknown Organization [facility] Address [address] [place] [address] Care Team Providers Care Md Psychiatry Name Role Phone None Reported, Pcp Primary Care Provider Unavail able Reason for Visit * Reason Comments Leg Swelling Encounter Details Date Type Department Care Team (Late st Contact Info) Description 06/14/2023 3:04 PM CDT - 06/14/2023 5:47 PM CDT Emergency [facility] [address] [place] [phone] Wayne Barbosa APRN, C.N.P., D.N.P. [address] [place] [phone] Edema Leg (Primary Dx); Edema Peripheral Discharge Disposition: Home or Self Care Social History Tobacco Use Types Packs/Day Years [...] on file Sexual Orientation Not on file documented as of this encounter Last Filed Vital Signs Vital Sign Reading Time Taken Comments Blood Pressure 112/72 06/14/2023 5:22 PM CDT Pulse 72 06/14/2023 5:22 PM CDT Temperature 36.5 ??C (97.7 ??F) 06/14/2023 5:22 PM CD T Respiratory Rate 18 06/14/2023 5:22 PM CDT Oxygen Saturation 100% 06/14/2023 5:22 PM CDT Inhaled Oxygen Concentration - - Weight - - Height - - Body Mass Index - - documented in this encounter Discharge Instructions * Discharge Instructions* Wayne Barbosa APRN, C.NMarysol., D.N.P. - 06/14/2023 5:21 PM CDT Keep your legs in compression stockings and elevated, but continue to walk around to promote the return of fluid to your heart. Take 4 days of Lasix as ordered. You will increase your urine output. Eat foods high in potassium. Follow-up early next week with your primary care provider to see if there is resolution. Return to the emergency department for any worsening shortness of breath, chest pain, worsening unilateral leg swelling. Your D-dimer here was negative which is very reassuring that this is not a blood clot. Thank you for utilizing [facility] for your care! * Attachments The following attachments cannot be sent through Care Everywhere. * Edema [id number] (Chinese) documented in this encounter Medications at Time of Discharge Medication Sig Dispensed Refills Start Date End Date FLUoxetine (PROzac) 20 mg tablet Take by mouth daily. 0 furosemide (LASIX) 20 mg tablet Take 1 tablet (20 mg total) by mouth daily. 3 tablet 0 06/14/2023 documented as of this encounter ED Notes * Wayne Barbosa APRN, C.N.P., D.N.P. - 06/14/2023 3:17 PM CDT Images from the original note were not included. CHIEF COMPLAINT/REASON FOR VISIT Leg Swelling HISTORY OF PRESENT ILLNESS Patient with a history of general anxiety disorder, ADHD, GERD, ovarian cyst presents to the emergency department with complaints of swollen left leg. Patient states she had abdominal surgery on 05/07/2023 at [facility] for debulking of bilateral ovarian cysts. The left was worse than the right. She also had her fallopian tubes removed at that time. Since that time he has had intermittentproblems with left leg swelling. Patient states her calf becomes very swollen, at times it is red, her skin starts burning and feels very tight. Patient also reports feeling slightly dizzy, not feeling well, shortness of breath which started in the last 24 hours. Patient did have a DVT study 1 month ago which was negative at that time. Denies any other workup including the lab work or additional imaging. Patient states she felt clammy today but denies true fever, or rigors. No chest pain but states she feels chest tightness today. No cough. She is complaining of abdominal fullness and bloating. She also states today her hands feel somewhat swollen. 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 Negative for diaphoresis and fever. HENT: Negative for sinus pressure and sore throat. Respiratory: Positive for chest tightness and shortness of breath. Negative for cough. Cardiovascular: Positive for leg swelling. Negative for chest pain. Gastrointestinal: Positive for abdominal distention. Negative for abdominal pain, constipation, diarrhea, nausea and vomiting. Genitourinary: Negative for dysuria, frequency and urgency. Musculoskeletal: Negative for arthralgias and myalgias. Skin: Negative for rash. Neurological: Positive for dizziness. Negative for weakness and headaches. Hematological: Negative for adenopathy. Does not bruise/bleed easily. All other systems reviewed and are negative. Allergies Reviewed in medical record Current Medications Reviewed in Medical Record. PAST HISTORY Medical No past medical history on file. Patient Active Problem List Diagnosis Anxiety Generalized Disorder Attention Deficit Hyperactive Disorder Deficiency Vitamin D Dependence Nicotine Depressive Disorder Gastroesophageal Reflux Disease Pain Low Back Chronic Surgical No past surgical history on file. Family Reviewed in Medical Record Social History Social History Tobacco Use Smoking status: Former Smokeless tobacco: Not on file Substance Use Topics Alcohol use: Not on file Social History Substance and Sexual Activity Drug Use Not on file OBJECTIVE Initial Vital Signs / Weights Initial Vitals Temperature 06/14/23 1722 36.5 ??C Pulse Rate 06/14/23 1722 72 Heart Rate -- Resp Rate 06/14/23 1722 18 Blood Pressure 06/14/23 1722 112/72 SpO2 06/14/23 1722 100 % Pain Score 06/14/23 1509 5 - Moderate pain Wt Readings from Last 3 Encounters: No data found for Wt PHYSICAL EXAMINATION Constitutional: Nursing note and vitals reviewed. No distress. HENT: Mouth/Throat: Oropharynx is clear and moist. Mucous membranes are moist. No tonsillar exudate. Eyes: Conjunctivae and EOM are normal. Pupils are equal, round, and reactive to light. Neck: Neck supple. Cardiovascular: Normal rate, regular rhythm, S1 normal, S2 normal and normal heart sounds. Pulses are strong and palpable. No murmur heard.Capillary refill: takes less than 3 seconds Pulmonary/Chest: Effort normal and breath sounds normal. There is normal air entry. No respiratory distress. Abdominal: Soft. Bowel sounds are normal. There is no abdominal tenderness. There is no rebound andno guarding. Musculoskeletal: General: Normal range of motion. Cervical back: Normal range of motion and neck supple. Comments: Tenderness noted left calf, Homans positive, no erythema, no ropy lesion appreciated on exam. No discernible swelling right leg. Patient states her ankles are swollen. Lymphadenopathy: She has no cervical adenopathy. Neurological: Alert and oriented to person, place, and time. No cranial nerve deficit. Skin: Skin is warm, dry and intact. Psychiatric: She has a normal mood and affect. DIAGNOSTICS Labs Labs Reviewed CBC WITH DIFFERENTIAL, B Result Value Hemoglobin 13.8 Hematocrit 41.0 Erythrocytes 4.53 MCV 90.5 RBC Distrib Width 12.5 Platelet Count 308 Leukocytes 9.2 Neutrophils 6.27 Lymphocytes 2.06 Monocytes 0.76 Eosinophils 0.08 Basophils <0.04 COMPREHENSIVE METABOLIC PANEL, S/P Potassium, P 4.1 Sodium, P 141 Chloride, P 104 Bicarbonate, P 26 Anion Gap, P 11 BUN (Blood Urea Nitrogen), P 11 Creatinine 0.61 Estimated GFR (eGFR) >90 Calcium, Total, P 9.5 Glucose, P 96 Protein, Total, P 7.8 Albumin, P 4.3 Aspartate Aminotransferase (AST), P 21 Alkaline Phosphatase, P 80 Alanine Aminotransferase (ALT), P 23 Bilirubin, Total, P 0.2 D-DIMER, P D-Dimer, P 315 NT-PRO B-TYPE NATRIURETIC PEPTIDE (BNP), S NT-Pro BNP 83 ECG ECG 12 Lead Result Date: 06/14/2023 Normal sinus rhythm Low voltage QRS Probably normal ECG variant No previous ECGs available Revised Report Procedures None See separate procedure note. ED COURSE ED Course as of 06/14/232001Jun 14, 2023 1257 I performed my initial evaluation of the patient. We discussed Emergency Department course including testing, treatment, and potential disposition based on findings. 1558 [place] here getting bilateral lower ext us. 1605 NT-Pro BNP: 83 reassuring 1606 EKG normal sinus rhythm with low voltage 1630 US unable to do study 1652 Called lab regarding DDIMER, he chirag look into it Patient was also updated. 1713 D-Dimer, P: 315 Normal D-dimer which is reassuring. 1721 I discussed the plan for discharge with the patient, and patient/family is agreeable. I discussed with patient the utility, limitations, and findings of the exam/interventions/studies done during this visit as well as the list of differential diagnosis. Patient understands provisional nature of this diagnosis and need for follow up. We discussed the plan of care, including supportive cares. We also discussed symptoms to monitor and symptoms that should prompt them to return for re-evaluation including new or worsening symptoms. All questions and concerns addressed. Patient to be discharged by RN. Final Diagnoses: as of 06/14/232001 Edema Leg Edema Peripheral INTERVENTIONS Medications furosemide tablet 40 mg (LASIX) (40 mg oral Given 06/14/231738) MEDICAL DECISION MAKING Assessment and Plan Patient presents to the emergency department with complaints of unilateral leg swelling on the left. Patient is status post debulking of a left ovarian cyst with fallopian tube removal. That happenedapproximately a month and a half ago. Patient has had problems with left leg swelling since that time. She did have an ultrasound 1 month ago but they did not do any lab work or other workup at that time. Differential diagnosis includes but not limited to DVT, SVT, heart failure, PE, pneumonia, nutritional deficiency, or others. Workup in the emergency department including obtaining peripheral IV access, CBC, CMP, D-dimer, BNPwere added. Will get an EKG. Ultrasound of the lower extremity was ordered. Disposition pending workup. Workup in the emergency department was pretty unremarkable. Labs were all reassuring including a negative BNP, negative D-dimer, normal CMP and CBC. I did consider imaging however ultrasound was unable to get her lower legs but with a negative D-dimer this is reassuring for no DVT. I did consider getting a abdominal pelvis however the patient has not been having abdominal pain just some fullness since surgery. I do not believe this would add anything to the case especially with no pain and negative labs. I did discuss all this with the patient, she was generally reassured. She was given strict return precautions to the emergency department. Patient was interested in getting some of this fluid off. I did give her 3 days' worth of Lasix for gentle diuresis. Patient was instructed to increase potassium containing food.. DIFFERENTIAL DIAGNOSES As above. PROBLEMS ADDRESSED THIS VISIT As above. Care is significantly affected by the following Social Determinants of Health: none. I reviewed the following external records: primary care records, prior outpatient labs, prior outpatient radiology tests and inpatient records. The following tests were considered but ultimately not performed: none. Escalation of care, including admission/observation, considered: none. DIAGNOSIS Final diagnoses: [R60.0] Edema Leg [R60.9] Edema Peripheral DISPOSITION Home or Self Care DISCHARGE/TRANSFER VITAL SIGNS Vitals: 06/14/23 1722 BP: 112/72 Pulse: 72 Resp: 18 Temp: 36.5 ??C SpO2: 100% ED DISCHARGE MEDS ED Prescriptions Medication Sig Dispense Start Date End Date Auth. Provider furosemide (LASIX) 20 mg tablet Take 1 tablet (20 mg total) by mouth daily. 3 tablet 06/14/2023 -- Wayne Barbosa APRN, C.N.P., D.N.P. FOLLOW UP Contact Information for Follow-ups [place] Next Steps: Follow up in 1 week(s) Insert Wayne Barbosa DNP, APRN, [employer], AGACNP-BC, ENP-C Emergency Medicine Wayne Barbosa APRN, C.N.P., D.N.P. 06/14/232001 documented in this encounter Plan of Treatment Not on file documented as of this encounter Procedures Procedure Name Priority Date/Time Associated Diagnosis Comments ECG Routine 06/14/2023 3:43 PM CDT NT-PRO B-TYPE NATRIURETIC PEPTIDE (BNP), S STAT 06/14/2023 3:30 PM CDT D-DIMER, P STAT 06/14/2023 3:30 PM CDT CBC WITH DIFFERENTIAL, B STAT 06/14/2023 3:30 PM CDT COMPREHENSIVE METABOLIC PANEL, S/P STAT 06/14/2023 3:30 PM CDT documented in this encounter Results * ECG 12 Lead (06/14/2023 3:43 PM CDT) Ventricular Rate ECG/Min 77 BPM MUSE NH Interval 156 ms MUSE QRSD Interval 96 ms MUSE QT Interval 384 ms MUSE QTC Interval 434 ms MUSE P Curtis 42 degrees MUSE R Curtis 31 degrees MUSE T Wave Curtis 33 degrees MUSE 06/14/2023 3:43 PM CDT 06/14/2023 4:22 PM CDT Impressions MUSE - 06/14/2023 3:55 PM CDT Normal sinus rhythm Low voltage QRS Probably normal ECG variant No previous ECGs available Revised Report Narrative Procedure Note Torito Mullen Jr., M.D. - 06/14/2023 IMPRESSION: Normal sinus rhythm Low voltage QRS Probably normal ECG variant No previous ECGs available Revised Report Wayne Barbosa APRN, C.N.P., D.N.P. ECG ORDERABLES MUSE NA * NT-Pro [...] Barbosa APRN, C.N.P., D.N.P. LAB BLOOD ADD-ON [address] [address], [facility] in [address] [address] * D-Dimer (06/14/2023 3:30 PM CDT) D-Dimer, [...] Barbosa APRN, C.N.P., D.N.P. LAB BLOOD ADD-ON [address] [address], [facility] in [address] [address] * Comprehensive Metabolic Panel (06/14/2023 3:30 PM [...] CDT 06/14/2023 3:32 PM CDT Wayne Barbosa APRN C.N.P., D.N.P. LAB BLOOD ADD-ON [facility] [address] [place] [id number], [facility] in [place] [phone] * CBC with Differential, Blood (06/14/2023 3:30 PM CDT) [facility] Hemoglobin 13.8 11.6 - 15.0 g/dL 06/14/2023 [...] Barbosa APRN, C.N.P., D.N.P. LAB BLOOD ADD-ON [facility]- [address] [address], [facility] in [address] [address] documented in this encounter Visit Diagnoses Diagnosis Edema Leg- Primary Edema Peripheral documented in this encounter Administered Medications Inactive Administered Medications - up to 3 most recent administrations Medication Order MAR Action Action Date Dose Rate Site furosemide tablet 40 mg (LASIX) 40 mg, oral, Once, On Sat06/14/23 at 1720, For 1 dose Given 06/14/2023 5:39 PM CDT 40 mg documented in this encounter Active and Recently Administered Medications Times are shown in CDT. Scheduled Medication Order 06/12/2023 06/13/2023 06/14/2023 furosemide tablet 40 mg (LASIX) (COMPLETED) 40 mg, oral, Once, On Sat06/14/23 at 1720, For 1 dose 1739 (Given - Provid er: Jordana Machado R.N.) documented in this encounter Care Teams Md Psychiatry Relationship Specialty Start Date End Date None Reported, Pcp PCP - General Family Medicine 06/14/23 documented as of this encounter
--- NOTE | 2023-06-20 14:09 | ED_ITS ---
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 She made full recovery with regards to her abdominal pain but since that time has had intermittent episodes of vertigo lightheadedness general malaise and fatigue. Patient also has had unilateral swelling in her left leg for which she has had ultrasound and has shown to not have a DVT. Patient was on Lasix to help with swelling but this did not really seem to help and it made her more lightheaded. 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 EKG upon arrival upon my review shows normal sinus rhythm no acute ST or T-wave changes. Patient has no focal neurologic symptoms of feels like she could pass out at any time. Related Data Home Medications Medication Instructions Recorded Confirmed lactobacillus combination no.4 3 3,000 mmu cells PO QDAY 05/07/23 06/20/23 billion cell capsule (Probiotic) meclizine 25 mg tablet (Dramamine 12.5 mg PO BID-TID PRN 06/20/23 06/20/23 (meclizine)) Previous Rx's Medication Instructions Recorded omeprazole 20 mg capsule,delayed 20 mg PO QDAY #90 caps 03/23/22 release fluoxetine 20 mg capsule 20 mg PO QDAY #180 caps 09/20/22 dextroamphetamine-amphetamine 10 10 mg PO .PRN #60 tabs 11/07/22 mg tablet (Adderall) Allergies Allergy/AdvReac Type Severity Reaction Status Date / Time indomethacin AdvReac Unknown Nausea Verified 06/20/23 13:36 Review of Systems Status of ROS: Reports: 10 or more systems reviewed and unremarkable except as noted in History and below [facility] Medical History Oral candidiasis ?B37.0 - Candidal stomatitis (ICD-10) Abdominal pain ?R10.9 - Unspecified abdominal pain (ICD-10) Obesity (BMI 30.0-34.9) ?E66.9 - Obesity, unspecified (ICD-10) Aspiration pneumonia ?J69.0 - Pneumonitis due to inhalation of food and vomit (ICD-10) Pneumonia ?J18.9 - Pneumonia, unspecified organism (ICD-10) Chronic GERD ?K21.9 - Gastro-esophageal reflux disease without esophagitis (ICD-10) Moderate obstructive sleep apnea (~2020) ?G47.33 - Obstructive sleep apnea (adult) (pediatric) (ICD-10) 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) ?F33.0 - Major depressive disorder, recurrent, mild (ICD-10) Hx of bulimia nervosa ?Z86.59 - Personal history of other mental and behavioral disorders (ICD-10) Vitamin D deficiency (02/2021) ?E55.9 - Vitamin D deficiency, unspecified (ICD-10) Chronic low back pain with sciatica ?M54.40 - Lumbago with sciatica, unspecified side (ICD-10) ?G89.29 - Other chronic pain (ICD-10) Anxiety ?F41.9 - Anxiety disorder, unspecified (ICD-10) ADHD ?F90.9 - Attention-deficit hyperactivity disorder, unspecified type (ICD-10) Surgical History Status post hysteroscopy (05/08/23) ?Z98.890 - Other specified postprocedural states (ICD-10) Status post laparoscopy (05/08/23) ?Z98.890 - Other specified postprocedural states (ICD-10) History of esophagogastroduodenoscopy (EGD) ?Z98.890 - Other specified postprocedural states (ICD-10) History of third molar tooth extraction (2009) ?K08.409 - Partial loss of teeth, unspecified cause, unspecified class (ICD- 10) Family History Mother Alcohol dependence Colon cancer High blood pressure Father Alcohol dependence Depression Aunt Diabetes Family/Other Diabetes Maternal Grandmother Pancreatic cancer Other Chronic low back pain with sciatica Social History Narrative: , 2 kids ages 15 and 10. 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 Smoked off and on for 15-20 years. 09/2021 Does not exercise on regular basis Smoking Status: Former smoker Do you use any of these nicotine containing products: Vaping Products Nicotine containing products detail: on and off How often do you have a drink containing alcohol: 2-4 times a month Alcohol type: beer How many standard drinks containing alcohol do you have on a typical day: 1 or 2 How often do you have six or more drinks on one occasion: Never AUDIT-C Alcohol total score: 2 Non-prescribed substance use: denies use Caffeine: Yes (4-5 times a week) Little interest or pleasure in doing things: several days Feeling down, depressed, or hopeless: several days service: No Exam Narrative: Exam Narrative: EXAM GENERAL: Patient appears comfortable and well. EYES: No scleral icterus. LYMPH: No supraclavicular or cervical lymphadenopathy. SKIN: Visible skin seen during exam normal or with benign process only. EXT: No dependent lower extremity pedal edema. HEART: Regular rate and rhythm with no murmurs, rubs, or gallops. LUNGS: Clear to auscultation bilaterally with no crackles or wheezes. ABD: Soft, non tender, non distended. PSYCH: Good eye contact, speech is not pressured. Const: Vital Signs, click to edit/add: Vital Signs - 24 hr 06/20/23 13:33 06/20/23 14:11 Temperature 97.7 F Pulse Rate [Pulse Oximeter] 87 Pulse Rate [orthos tatic lying Right Pulse Oximeter] 78 Pulse Rate [orthos tatic sitting Left Pulse Oximeter] 95 Pulse Rate [orthos tatic standing Lef t Pulse Oximeter] 97 Respiratory Rate 18 Blood Pressure [Ri ght Upper Arm] 143/99 H Blood Pressure [or thostatic lying Ri ght Arm] 125/92 H Blood Pressure [or thostatic sitting Left Arm] 128/88 Blood Pressure [or thostatic standing Left Arm] 128/90 H Pulse Oximetry 100 Oxygen Delivery Me thod Room Air Course Course ED Course: Patient seen and examined. D-dimer troponin EKG who CBC comprehensive metabolic panel obtained. Orthostatics ordered. Vital Signs Vital signs: Initial Vital Signs Temperature 97.7 F 06/20/23 13:33 Temperature Source Temporal Artery Scan 06/20/23 13:33 Pulse Rate 87 06/20/23 13:33 Respiratory Rate 18 06/20/23 13:33 Blood Pressure 143/99 H 06/20/23 13:33 Blood Pressure Mean 113 H 06/20/23 13:33 Blood Pressure Position Sitting 06/20/23 13:33 Pulse Oximetry 100 06/20/23 13:33 Oxygen Delivery Method Room Air 06/20/23 13:33 Vital Signs Temperature 97.7 F 06/20/23 13:33 Pulse Rate 87 06/20/23 13:33 Respiratory Rate 18 06/20/23 13:33 Blood Pressure 143/99 H 06/20/23 13:33 Pulse Oximetry 100 06/20/23 13:33 Oxygen Delivery Method Room Air 06/20/23 13:33 Temperature 97.7 F 06/20/23 13:33 Pulse Rate 78 06/20/23 14:11 Respiratory Rate 18 06/20/23 13:33 Blood Pressure 125/92 H 06/20/23 14:11 Pulse Oximetry 100 06/20/23 13:33 Oxygen Delivery Method Room Air 06/20/23 13:33 Medications Administered Medications: Discontinued Medications Generic Name Dose Route Start Last Admin Trade Name Freq PRN Reason Stop Dose Admin Sodium Chloride 1,000 mls @ 1,000 mls/hr 06/20/23 14:45 06/20/23 15:29 0.9 % Sodium Chloride 1000 Ml IV 06/20/23 15:44 Infused .Q1H CODY Infusion Medical Decision Making [facility] Narrative Medical decision making narrative: Patient is a 37-year-old woman who presents with general fatigue weakness and vertigo. She has had a full workup in the past. I did send off CBC CMP D-dimer troponin EKG all of which were negative upon my review. I did give her L normal saline and asked her to discontinue her Lasix. I do not believe further intervention is needed she will be in contact with me to potentially adjust her SSRI. Differential diagnosis includes but not limited to myocardial infarction pulmonary embolism anemia heart block vertigo Lab Data Labs: Lab Results 06/20/23 Range/Units 13:37 WBC 9.25 (4.50-11.00) K/uL RBC 4.89 (4.00-5.20) m/uL Hgb 14.8 (12.0-16.0) gm/dL Hct 44.7 (33.0-51.0) % MCV 91 (80-100) fL MCH 30 (26-34) pg MCHC 33 (32-36) gm/dL RDW Coeff of Ayo 12.6 (11.5-15.5) % Plt Count 368 (140-440) K/uL Neut % (Auto) 64.7 (42.0-72.0) % Lymph % (Auto) 28.0 (20-44) % [place] % (Auto) 5.8 (0.0-11.0) % Eos % (Auto) 0.3 (0.0-7.0) % Baso % (Auto) 0.4 (0.0-3.0) % Neut # (Auto) 5.98 (1.7-7.0) K/uL Lymph # (Auto) 2.59 (0.90-2.90) K/uL [place] # (Auto) 0.50 (0.00-0.90) K/UL Eos # (Auto) 0.03 (0.00-0.50) K/uL Baso # (Auto) 0.04 (0.00-0.30) K/uL Abs Immat Gran (auto) 0.07 (0.00-0.30) K/uL Imm/Tot Granulo (auto) 0.8 % D-Dimer Quant (PE/DVT) 0.12 (0.00-0.50) ug/ml Sodium 140 (135-149) mmol/L Potassium 4.0 (3.6-5.1) mmol/L Chloride 103 (96-114) mmol/L Carbon Dioxide 26 (20-32) mmol/L Anion Gap 11 (7-15) mEq/L BUN 12 (5-24) mg/dL Creatinine 0.6 (0.5-1.5) mg/dL Estimated Creat Clear 141.52 Estimated GFR 120 ml/min Glucose 132 H (60-115) mg/dL Calcium 9.7 (8.4-10.6) mg/dL Total Bilirubin 0.4 (0.1-1.5) mg/dL AST 24 (12-35) U/L ALT 26 (4-35) U/L Alkaline Phosphatase 76 (40-150) U/L Troponin I < 0.01 L (0.01-0.04) ng/mL Total Protein 8.7 H (6.0-8.3) g/dL Albumin 4.7 (3.3-5.0) g/dL Discharge Plan Discharge Clinical Impression: Benign paroxysmal positional vertigo Patient Disposition: Home, Self-Care Condition: Stable Instructions: Dizziness (ED) Additional Instructions: Stop Lasix Continue current medications Contact your doctor to discuss change in anxiety medicine Activity Level: No Restrictions Discharge Diet: Regular Prescriptions: No Action fluoxetine 20 mg capsule 20 mg PO QDAY Qty: 180 2RF omeprazole 20 mg capsule,delayed release(DR/EC) 20 mg PO QDAY Qty: 90 4RF Probiotic 3 billion cell capsule 3,000 mmu cells PO QDAY Rx Instructions: administer with a meal meclizine [Dramamine (meclizine)] 25 mg tablet 12.5 mg PO BID-TID PRN dextroamphetamine-amphetamine [Adderall] 10 mg tablet 10 mg PO .PRN Qty: 60 0RF Rx Instructions: administer doses at least 4-6 hours apart Follow Up/Referrals: Vandana Copeland MD [Primary Care Provider] - Stand Alone Forms: [employer] Info Instructions
[2023-06-20 14:11] VITALS: BP 125/92; BP 128/88; BP 128/90; PULSE 78; PULSE 95; PULSE 97
[2023-06-20 14:26] LABS: Albumin* 4.7 g/dL (3.3-5.0); Chloride* 103 mmol/L (96-114); Sodium* 140 mmol/L (135-149)
[2023-06-20 14:27] LABS: Basophils Absolute Auto 0.04 K/uL (0.00-0.30); Basophils Percent Auto 0.4 % (0.0-3.0); Eosinophils Absolute Auto 0.03 K/uL (0.00-0.50); Eosinophils Percent Auto 0.3 % (0.0-7.0); Hematocrit 44.7 % (33.0-51.0); Hemoglobin* 14.8 gm/dL (12.0-16.0); Immature Granulocytes Abs Auto 0.07 K/uL (0.00-0.30); Immature Granulocytes Pct Auto 0.8 %; Lymphocytes Absolute Auto 2.59 K/uL (0.90-2.90); Mean Corpuscular HGB Conc 33 gm/dL (32-36); Mean Corpuscular Hemoglobin 30 pg (26-34); Mean Corpuscular Volume 91 fL (80-100); Monocytes Percent Auto 5.8 % (0.0-11.0); Neutrophils Absolute Auto 5.98 K/uL (1.7-7.0); Neutrophils Percent Auto 64.7 % (42.0-72.0); Platelet Count* 368 K/uL (140-440); RDW Coefficient of Variation % 12.6 % (11.5-15.5); Red Blood Count 4.89 m/uL (4.00-5.20); White Blood Count* 9.25 K/uL (4.50-11.00)
[2023-06-20 14:28] LABS: Creatinine* 0.6 mg/dL (0.5-1.5); Est. Creatinine Clearance* 141.52; Estimated Glomerular Filt Rate 120 ml/min
[2023-06-20 14:29] LABS: Alanine Aminotransferase* 26 U/L (4-35); Alkaline Phosphatase* 76 U/L (40-150); Anion Gap 11 mEq/L (7-15); Aspartate Amino Transferase* 24 U/L (12-35); Blood Urea Nitrogen* 12 mg/dL (5-24); Carbon Dioxide* 26 mmol/L (20-32); Glucose* 132 mg/dL (60-115)
[2023-06-20 14:30] LABS: Calcium* 9.7 mg/dL (8.4-10.6)
[2023-06-20 14:31] LABS: Slide Review Reflex No
[2023-06-20 14:45] LABS: Bilirubin Total* 0.4 mg/dL (0.1-1.5); Total Protein* 8.7 g/dL (6.0-8.3)
[2023-06-20 14:47] LABS: Troponin I* < 0.01 ng/mL (0.01-0.04)
[2023-06-20] MEDS: 0.9 % SODIUM CHLORIDE 1000 ml 1,000 ML IV (14:49)
[2023-06-20 15:50] LABS: D Dimer Quantitative* 0.12 ug/ml (0.00-0.50)
== END 2023-06-20 16:05 | disposition home or self-care (01) ==
PROVIDERS: Emergency Provider Internal Medicine; PCP Family Medicine
DX: H81.10 Benign paroxysmal vertigo, unspecified ear (principal)
CPT/HCPCS: 36415; 80053; 84484; 85025; 85379; 93005; 99283; J7030

== ENCOUNTER 2023-06-21 10:43 | Emergency (ER) | payer OTHER, SELFPAY ==
[2023-06-21] VITALS (23 sets, daily range): BP systolic 113–134; BP diastolic 72–96; PULSE 72–104; RESP 20; TEMP 37.3; O2SAT 95–100; BMI 31.6
--- OUTSIDE RECORDS SUMMARY | 2023-06-21 11:33 | XMS_ITS | Referral Summary ---
Author Name Unknown Organization [facility] Address [address] [place] [address] Care Team Providers Care Environmental Restoration Planner Name Role Phone None Reported, Pcp Primary Care Provider Unavail able Source Comments Patient records contain information from all sites at [facility]. For routine questions regarding patient records, call [phone] during business hours, M-F 8:00 AM - 5:00 PM Central Time. Record requests for emergency care only can be directed to [phone] at any time.[facility] Encounters Date Type Department Care Team Description 06/14/2023 3:04 PM CDT - 06/14/2023 5:47 PM CDT Emergency [facility] [address] [place] [address] [phone] Wayne Barbosa APRN, C.N.P., D.N.P. 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 LAB BLOOD ADD-ON [facility] [address] [place] [address], [place] [facility] in [address] [address] * D-Dimer (06/14/2023 3:30 PM CDT) D-Dimer, [...] Barbosa APRN, C.N.P., D.N.P. LAB BLOOD ADD-ON [facility] [address] [place] [address], [facility] [place] [address] * CBC with Differential, Blood (06/14/2023 3:30 PM CDT) [facility] Hemoglobin 13.8 11.6 - 15.0 g/dL 06/14/2023 [...] D.N.P. LAB BLOOD ADD-ON Performing Organization Address City/State/[facility] Co de Phone Number [facility] [address] [place] [address], [facility] [place] [address] * Comprehensive Metabolic Panel (06/14/2023 3:30 PM [...] Barbosa APRN, C.N.P., D.N.P. LAB BLOOD ADD-ON [facility] [address] [place] [phone], [facility] in [address] [address] from Last 3 Months Care Teams Environmental Restoration Planner Relationship Specialty Start Date End Date None Reported, Pcp PCP - General Family Medicine 06/14/23
--- OUTSIDE RECORDS SUMMARY | 2023-06-21 11:33 | XMS_ITS | Continuity of Care Document ---
Author Name Unknown Organization [facility] Address [address] [place] [address] Phone Care Team Providers Care Stringed Instrument Tuner Name Role Phone Padmini KUMAR, Daniel Unavailable [...] suspected, a test for HCV RNA(test code 04876) is suggested. For additional information please refer [email or web address] dominic.FilterEasy/fa [email or web address](This link is being provided for informational/ educational purposes only.) Advance Directives Directive Yes / No Effective Date File Name No Information Encounters Encounter Description Practice Location Reason(s) For Visit Diagnoses Date Provider Providers Copied on Encounter Office/Outpa tient Visit, [facility], [address], [place], [address], [place] tel:[phone] [facility], low back pain (chief complaint) Low back pain 3 Padmini Sanchez. [facility] [address], [place], [address], [place]. tel:[phone] Referring Provider: Daniel Torres, [facility] [address], [place], [address]. tel:[phone] Family History Family Member Type Diagnosis Age At Onset Maternal aunt Problem rheumatoid arthritis Maternal aunt Problem Systemic lupus erythematosu s Payers Payer name Insurance type Covered democrat ID Authoriza tion(s) Preferred One CI [id number] Social History Type Description Quantity Date Captured [...]
--- OUTSIDE RECORDS SUMMARY | 2023-06-21 11:33 | XMS_ITS | Clinical Summary ---
Author Name Unknown Organization [facility] Address [address] [place] [address] Care Team Providers Care Director Industrial Museum Name Role Phone None Reported, Pcp Primary Care Provider Unavail able Source Comments Patient records contain information from all sites at [facility]. For routine questions regarding patient records, call [phone] during business hours, M-F 8:00 AM - 5:00 PM Central Time. Record requests for emergency care only can be directed to [phone] at any time.[facility] Allergies Active Allergy Reactions Criticality Noted Date [...] CDT - 06/14/2023 5:47 PM CDT Emergency [facility] [address] [place] [phone] Wayne Barbosa APRN, C.N.P., D.N.P. 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 ECG ORDERABLES Performing Organization Address City/[facility]/ZIP Co de Phone Number MUSE NA * [...] Nereyda Maguire APRN.N.P., D.N.P. LAB BLOOD ADD-ON [facility] [address] [place] [phone], [facility] in [address] [address] * D-Dimer (06/14/2023 3:30 PM CDT) D-Dimer, [...] Barbosa APRN, C.N.P., D.N.P. LAB BLOOD ADD-ON [facility] [address] [place] [address], [facility] [place] [address] * CBC with Differential, Blood (06/14/2023 3:30 [...] D.N.P. LAB BLOOD ADD-ON Performing Organization Address City/State/[facility] Co de Phone Number [facility] [address] [place] [address], [facility] [place] [address] * Comprehensive Metabolic Panel (06/14/2023 3:30 PM [...] D.N.P. LAB BLOOD ADD-ON Performing Organization Address [facility]/State/ZIP Co de Phone Number [facility] [address] [place] [address], [facility] in [address] [address] from Last 3 Months Care Teams Director Industrial Museum Relationship Specialty Start Date End Date None Reported, Pcp PCP - General Family Medicine 06/14/23
--- OUTSIDE RECORDS SUMMARY | 2023-06-21 11:33 | XMS_ITS ---
Author Name Unknown Organization [facility] Address [address] [place] [address] Care Team Providers Care Biofuels Production Technician Name Role Phone Unavailable Unavailable Unavailable Surgery Details Not on file Complications Check Surgery Details section. Procedure Estimated Blood Loss Check Surgery Details section. Procedure Findings Check Surgery Details section. Procedure Specimens Taken Check Surgery Details section.
--- OUTSIDE RECORDS SUMMARY | 2023-06-21 11:33 | XMS_ITS | Clinical Summary ---
Author Name Unknown Organization [facility] Address [place], [place] [address] Care Team Providers Care Yardmaster Name Role Phone AjayBrynn rico MD Primary [...] Department Care Team Description 05/08/2023 Lab Requisition [facility] [phone] Jayde Livingston MD from Last 3 Months [...] Comments Blood Pressure 126/83 03/27/2013 11:08 AM WEBSPHERE CONSULTANT Pulse 84 03/27/2013 11:08 AM WEBSPHERE CONSULTANT Temperature 36.8 ??C (98.3 ??F) 03/27/2013 11:[address] Respiratory Rate 18 01/11/2010 10:59 AM CDT Oxygen Saturation 99% 03/27/2013 11:08 AM WEBSPHERE CONSULTANT Inhaled Oxygen Concentration - - Weight 72.2 kg (159 lb 3.2 oz) 03/27/2013 11:08 AM WEBSPHERE CONSULTANT Height 177.8 cm (5' 10) 03/27/2013 11:08 AM WEBSPHERE CONSULTANT Body Mass Index 22.84 03/27/2013 11:08 AM WEBSPHERE CONSULTANT Plan of Treatment Health Maintenance Due Date [...] TRACKING EVENT Routine 05/08/2023 12 :44 PM WEBSPHERE CONSULTANT PATH TISSUE EXAM Routine 05/08/2023 11:1 5 AM WEBSPHERE CONSULTANT SHRIMP PACKER THIN PREP PAP SCREEN IMAGED Routine 10/28/2018 11:00 AM CDT ANTI HIV 1/2 Routine 05/21/2007 11:53 AM CDT Supervision Of Normal First from Last 3 Months or Most Recently Relevant to Health Maintenance Results * LAB TRACKING EVENT (05/08/2023 12:44 PM WEBSPHERE CONSULTANT) Other (Other) Client Collect / Unknown 05/08/2023 12:44 PM WEBSPHERE CONSULTANT 05/08/2023 9:16 PM WEBSPHERE CONSULTANT Jayde Livingston MD LAB BILL ONLY [facility] [address] [place] [address], * PATH TISSUE EXAM (05/08/2023 11:15 AM WEBSPHERE CONSULTANT) Case Report Pathology Report ?Case: [id number] ? Authorizing Provider: ??Jayde Livingston MD ?Collected: ? 05/08/2023 1115 ? Ordering Location: ? [facility] ?Received: ?05/09/2023 0802 ? Pathologist: ? Anjelica Bernal MD ? Specimens: ?? A) - Endometrial Curettings ? B) - Left Ovarian Cyst ? C) - Bilateral Fallopian Tubes ? D) - Right Ovarian Cyst ? 05/10/2023 3:18 PM WEBSPHERE CONSULTANT Copyright Agent LABORATORY-C ENTRAL LABORATORY Final Diagnosis A) ENDOMETRIUM, [...] 2. Negative for malignancy 05/10/2023 3:18 PM WEBSPHERE CONSULTANT Copyright Agent LABORATORY-C [facility]AL LABORATORY Clinical Information Ovarian cysts 05/10/2023 3:18 PM [facility] Copyright Agent LABORATORY-C ENTRAL LABORATORY Gross Description A) Received [...] adhesions and a patent stellate lumen throughout. ??Wilton Weaver sections are submitted as follows: 1, 2. ??Wilton Weaver cross-sections and entire fimbriated end of blue inked tube 3, 4. ??Wilton Weaver cross-sections and entire fimbriated end of noninked tube D) Received in formalin, labeled with the patient's name and right ovarian cyst, is a 2 x 1.2 x 0.1 cm aggregate of portions of underwood fibromembranous tissue with no papillations or solid areas. ??The specimen is entirely submitted in 2 cassettes. TRB 05/09/2023 05/10/2023 3:18 PM WEBSPHERE CONSULTANT [facility]- ENTRAL LABORATORY Microscopic Description The final diagnosis is based on microscopic examination of appropriate sections of all specimens. 05/10/2023 3:18 PM WEBSPHERE CONSULTANT [facility] ENTRTN LABORATORY Additional Information Interpreted at [facility] - [address], [place] [address] 05/10/2023 3:18 PM WEBSPHERE CONSULTANT [facility] ENTRTN LABORATORY Other (Endometrial Curettings) 05/08/2023 11:15 AM WEBSPHERE CONSULTANT 05/09/2023 8:02 AM WEBSPHERE CONSULTANT Specimen (specimen) (Left Ovarian Cyst) 05/08/2023 11:29 AM WEBSPHERE CONSULTANT 05/09/2023 8:02 AM WEBSPHERE CONSULTANT Specimen (specimen) (Bilateral Fallopian Tubes) 05/08/2023 11:39 AM WEBSPHERE CONSULTANT 05/09/2023 8:02 AM WEBSPHERE CONSULTANT Specimen (specimen) (Right Ovarian Cyst) 05/08/2023 12:05 PM WEBSPHERE CONSULTANT 05/09/2023 8:02 AM WEBSPHERE CONSULTANT Jayde Livingston MD PATHOLOG[facility] [address] [place] [address], * SHRIMP PACKER THIN PREP PAP SCREEN IMAGED (10/28/2018 11:00 AM CDT) Case Report Gynecologic Cytology Report ? Case: [id number] ? Authorizing Provider: ??Miri Neal MD ?Collected: ? 10/28/2018 1100 ? Ordering Location: ? [facility] ?Received: ?10/29/2018 1205 ? First Screen: ?Ace Araujo ? Specimen: ?SHRIMP PACKER ThinPrep Vial Screening, Cervical/Vaginal ? 11/06/2018 2:33 PM CDT [facility]- ENTRAL LABORATORY INTERPRETATION/ RESULT NEGATIVE FOR INTRAEPITHELIAL LESION OR MALIGNANCY (NIL) (none) 11/06/2018 2:33 PM CDT [facility] IMEN ADEQUACY Satisfactory for evaluation Endocervical component present Scant cellularity 11/06/2018 2:33 PM CDT [facility]- EN[facility]AL LABORATORY HPV REQUEST HPV and PAP 11/06/2018 2:33 PM CDT [facility] Date of LMP 10/21/2018 11/06/2018 2:33 PM CDT [facility] Last Pap Date 10/07/2015 11/06/2018 2:33 PM CDT [facility] Last Pap Result NIL 9 2:33 PM CDT [facility] Automated Review Successful 11/06/2018 2:33 PM CDT [facility] Comment:Specimen processed s uccessfully by automated efficiency engineer device, [employer] FarmsPrep Imaging System, [employer] ANCILLARY TESTING SHRIMP PACKER HPV Ordered, Please see separate report 11/06/2018 2:33 PM CDT [facility] Note The pap test is [...] lesions. Cytology is screened and interpreted at [facility] - [address], [place] [address] and [facility] - [address]; [place] [address] and [facility] - [address]; [place] [address] and [facility] [address]; [place] [address] 11/06/2018 2:33 PM CDT [facility] Other (Cervical/Vagina l) 10/28/2018 11:00 AM CDT 10/29/2018 12:05 PM CDT Miri Neal MD PATHOLOGY/CYTOLOGY [facility] [address] [place] [address], * ANTI HIV 1/2 (05/21/2007 11:53 AM CDT) ANTI HIV 1/2 Non-reacti ve [facility] Blood specimen (specimen) BLOOD SPECIMEN / Unknown 05/21/2007 11:53 AM CDT 05/21/2007 11:49 AM CDT Abraham Slater MD SEND OUTS [facility] INTERNAL ZIP [phone] [address] from Last 3 Months or Most Recently Relevant to Health Maintenance Care Teams Yardmaster Relationship Specialty Start Date End Date Brynn Moss MD [address] [place] [address] PCP - General Family Practice 11/20/10
--- OUTSIDE RECORDS SUMMARY | 2023-06-21 11:33 | XMS_ITS | Encounter Summary ---
Author Name Unknown Organization [facility] Address [address] [place] [address] Care Team Providers Care Hub Bander Name Role Phone None Reported, Pcp Primary Care Provider Unavail able Reason for Visit * Reason Comments Leg Swelling Encounter Details Date Type Department Care Team (Late st Contact Info) Description 06/14/2023 3:04 PM CDT - 06/14/2023 5:47 PM CDT Emergency [facility] [address] [place] [id number] Wayne Barbosa APRN, C.N.P., D.N.P. [address] [place] [phone] Edema Leg (Primary Dx); Edema [...] a blood clot. Thank you for utilizing [facility] for your care! * Attachments The following attachments cannot be sent through Care Everywhere. * Edema Guth-fz-[id number] (Frisian) documented in this encounter Medications at Time [...] she had abdominal surgery on 05/07/2023 at [facility] for debulking of bilateral ovarian cysts. The [...] feel somewhat swollen. 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 FOLLOW UP Contact Information for Follow-ups [place] Next Steps: Follow up in 1 week(s) Insert Wayne Barbosa DNP, APRN, AUTO CLEANER-C, AGACNP-BC, ENP-C Emergency Medicine Wayne Barbosa APRN, [...] CDT) Ventricular Rate ECG/Min 77 BPM MUSE MI Interval 156 ms MUSE QRSD Interval 96 ms MUSE QT Interval 384 ms MUSE QTC Interval 434 ms MUSE P Patrick 42 degrees MUSE R Patrick 31 degrees MUSE T Wave Patrick 33 degrees MUSE 06/14/2023 3:43 PM CDT [...] Barbosa APRN, C.N.P., D.N.P. LAB BLOOD ADD-ON [address] [address], [facility] in [address] [address] * D-Dimer (06/14/2023 3:30 PM CDT) D-Dimer, [...] Barbosa APRN, C.N.P., D.N.P. LAB BLOOD ADD-ON [address] [address], [facility] in [address] [address] * Comprehensive Metabolic Panel (06/14/2023 3:30 PM [...] Barbosa APRN C.N.P., D.N.P. LAB BLOOD ADD-ON [facility] [address] [place] [id number], [facility] CNFL [facility] in [place] [id number] * CBC with Differential, Blood (06/14/2023 3:30 PM CDT) [facility] Hemoglobin 13.8 11.6 - 15.0 g/dL 06/14/2023 [...] Barbosa APRN, C.N.P., D.N.P. LAB BLOOD ADD-ON [facility] [address] [address], [facility] in [address] [address] documented in this encounter Visit Diagnoses Diagnosis [...] R.N.) documented in this encounter Care Teams Hub Bander Relationship Specialty Start Date End Date None Reported, Pcp PCP - General Family Medicine 06/14/23 documented as of this encounter
--- NOTE | 2023-06-21 12:02 | CT_ITS ---
Patient: PRINCE PATHAK Facility:?[facility] Patient ID:?[id number] Site Patient ID:?[id number]. Site :?[id number] Study:?CT-Head W/O-06/21/2023 1:11:57 PM Ordering Physician:FRANTZ Final Report: Indication: Dizziness, lightheaded Technique: CT Head without IV contrast Comparison: CT head on February 14, 2023 Findings: Brain Parenchyma: No acute infarct, acute intracranial hemorrhage, mass effect or midline shift. Ventricles: No hydrocephalus. Extra-axial Spaces: No abnormal fluid collection. Paranasal sinuses: Mucous retention cyst in the left maxillary sinus. Improvement in mucosal thickening seen in the right sphenoid sinus. Orbits: Unremarkable. Mastoid Sinuses: Unremarkable. Cranium: No acute fracture. 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 Soft tissues: Unremarkable. Impression: No evidence of an acute intracranial process. Please note that all CT scans at this facility use dose modulation, iterative reconstruction, and/or weight-based dosing when appropriate to reduce radiation dose to as low as reasonably achievable. Dictated by Chito Roca MD @ 06/21/2023 1:18:09 PM Signed by:?Chito Roca MD @06/21/2023 1:18:09 PM (Electronic Signature)
[2023-06-21] MEDS: 0.9 % SODIUM CHLORIDE 1000 ml 1,000 ML IV ×2 (12:35→15:48)
[2023-06-21] MEDS: ONDANSETRON 2 MG/ML inj 4 MG IVP (12:35)
[2023-06-21] MEDS: diazePAM 5 MG/ML inj IV (12:35)
--- NOTE | 2023-06-21 13:49 | ED.GENADULT ---
HPI - General Adult General Chief complaint: Weakness Stated complaint: feeling of passing out Time Seen by Provider: 06/21/23 11:06 History of Present Illness HPI narrative: reports that she has been feeling weak, dizzy, nauseated, headache, tingling, heart palpitations and swelling. is concerned that the change in her prozac brand may have been the cause. was switched to zoloft recently. was on lasix for 2 days to swelling over the weekend. was seen in [facility] ed a week ago. had surgery end of April for ovarian cysts and had a tubal at the same time, this was done here. has poor appetite. slept ok last night. -Date of Onset of Symptoms 37-year-old woman presenting to the emergency department with concern of just not feeling well. This involves lightheadedness and feeling like she is going to pass out. Not associated really with shortness of breath or any chest pain. Symptoms seem to have begun 3 months ago although has had a number of strange symptoms including, I believe, temporary hearing loss following COVID injections and recurrent infections with COVID. Over the last 3 months and a little more has had dizziness and been diagnosed with positional vertigo. This has changed of somewhat to feeling more lightheaded but kind of a combination of the 2 also positional. The dizziness that was initially experiencing she says was present even when she was holding still and closing her eyes but worse with movement. Is not having sense of palpitations. Last TSH was done little over a year ago and was normal. Has not had recent head imaging other than basic head CT later last year. 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 She is not having headaches. Not describing visual changes. Now more if she gets up and walk as noted to have pallor about her face and really feeling like she is about to pass out. No known cardiovascular disease. Becomes quite tearful describing symptoms. She has had some numbness around her lips and face left upper extremity. This seems to correlate somewhat when feeling more lightheaded. Evaluated for DVT recently due to some discrete swelling on outer medial lower leg; this was negative. In April of this year had bilateral ovarian cystectomy and salpingectomy and had what sounds to have been perioperative possibly anesthetic complication where reportedly experienced laryngospasm ultimately an aspiration/pulmonary edema event as well. Since this time has continued to have pain in the left lower abdomen and discomfort in the left leg. She tearfully says says she just wants to feel better. Related Data Home Medications Medication Instructions Recorded Confirmed lactobacillus combination no.4 3 3,000 mmu cells PO QDAY 05/07/23 06/20/23 billion cell capsule (Probiotic) meclizine 25 mg tablet (Dramamine 12.5 mg PO BID-TID PRN 06/20/23 06/20/23 (meclizine)) Previous Rx's Medication Instructions Recorded omeprazole 20 mg capsule,delayed 20 mg PO QDAY #90 caps 03/23/22 release fluoxetine 20 mg capsule 20 mg PO QDAY #180 caps 09/20/22 dextroamphetamine-amphetamine 10 10 mg PO .PRN #60 tabs 11/07/22 mg tablet (Adderall) sertraline 50 mg tablet (Zoloft) 50 mg PO DAILY #30 tabs 06/20/23 diazepam 5 mg tablet (Valium) 2.5 - 5 mg (0.5 - 1 x 5 mg) PO BID 06/21/23 PRN dizziness or vertigo #6 tabs Allergies Allergy/AdvReac Type Severity Reaction Status Date / Time indomethacin AdvReac Unknown Nausea Verified 06/20/23 13:36 Review of Systems Status of ROS: Reports: 6 or more systems reviewed and unremarkable except as noted in History and below [facility] Medical History Oral candidiasis ?B37.0 - Candidal stomatitis (ICD-10) Abdominal pain ?R10.9 - Unspecified abdominal pain (ICD-10) Obesity (BMI 30.0-34.9) ?E66.9 - Obesity, unspecified (ICD-10) Aspiration pneumonia ?J69.0 - Pneumonitis due to inhalation of food and vomit (ICD-10) Pneumonia ?J18.9 - Pneumonia, unspecified organism (ICD-10) Chronic GERD ?K21.9 - Gastro-esophageal reflux disease without esophagitis (ICD-10) Moderate obstructive sleep apnea (~2020) ?G47.33 - Obstructive sleep apnea (adult) (pediatric) (ICD-10) 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) ?F33.0 - Major depressive disorder, recurrent, mild (ICD-10) Hx of bulimia nervosa ?Z86.59 - Personal history of other mental and behavioral disorders (ICD-10) Vitamin D deficiency (02/2021) ?E55.9 - Vitamin D deficiency, unspecified (ICD-10) Chronic low back pain with sciatica ?M54.40 - Lumbago with sciatica, unspecified side (ICD-10) ?G89.29 - Other chronic pain (ICD-10) Anxiety ?F41.9 - Anxiety disorder, unspecified (ICD-10) ADHD ?F90.9 - Attention-deficit hyperactivity disorder, unspecified type (ICD-10) Surgical History Status post hysteroscopy (05/08/23) ?Z98.890 - Other specified postprocedural states (ICD-10) Status post laparoscopy (05/08/23) ?Z98.890 - Other specified postprocedural states (ICD-10) History of esophagogastroduodenoscopy (EGD) ?Z98.890 - Other specified postprocedural states (ICD-10) History of third molar tooth extraction (2009) ?K08.409 - Partial loss of teeth, unspecified cause, unspecified class (ICD-10) Family History Mother Alcohol dependence Colon cancer High blood pressure Father Alcohol dependence Depression Aunt Diabetes Family/Other Diabetes Maternal Grandmother Pancreatic cancer Other Chronic low back pain with sciatica Social History Narrative: , 2 kids ages 15 and 10. [employer] Social drinker 8-10 beers once a month Non smoker. Smoked off and on for 15-20 years. 09/2021 Does not exercise on regular basis Smoking Status: Former smoker Do you use any of these nicotine containing products: Vaping Products Nicotine containing products detail: on and off Second hand tobacco smoke exposure: No How often do you have a drink containing alcohol: 2-4 times a month Alcohol type: beer How many standard drinks containing alcohol do you have on a typical day: 1 or 2 How often do you have six or more drinks on one occasion: Never AUDIT-C Alcohol total score: 2 Non-prescribed substance use: denies use Caffeine: Yes (4-5 times a week) Little interest or pleasure in doing things: several days Feeling down, depressed, or hopeless: several days service: No Exam Narrative: Exam Narrative: Pleasant. Clearly upset. Tearful during this interview/exam. Breathing easily. GCS 15 Cranial nerves 2-12 intact. Negative hints testing. TMs are clear. Face is somewhat flushed though this is as she is more tearful. Neck is supple without lymphadenopathy. Strong carotid upstroke. Speaking fluidly. Moving all extremities without difficulty. No lower extremity edema. There is a fullness in the outer lower or left leg. Wonder if this represents fascial plane disruption of some sort. Heart with regular rate and rhythm without murmur rub or gallop. Abdomen is soft. Overweight. There is [id number] tenderness without peritoneal signs in the left lower abdomen/next ill area -- this has been consistent since surgery per her report. Head is atraumatic. There is a firm 2 cm so ovoid swelling on the superior front scalp. She notes that this had been noted prior I did request orthostatics which were positive and symptomatic. Const: Vital Signs, click to edit/add: Vital Signs - 24 hr 06/21/23 10:51 06/21/23 10:51 06/21/23 10:52 Temperature 99.2 F Pulse Rate 96 94 Pulse Rate [Pulse Oximeter] 84 Pulse Rate [orthos tatic lying] Pulse Rate [orthos tatic sitting] Pulse Rate [orthos tatic standing] Respiratory Rate 20 Blood Pressure 134/90 H Blood Pressure [Ri ght Upper Arm] 134/90 H Blood Pressure [or thostatic lying Ri ght Arm] Blood Pressure [or thostatic sitting Right Arm] Blood Pressure [or thostatic standing Right Arm] Pulse Oximetry 97 97 97 Oxygen Delivery Me thod Room Air 06/21/23 11:00 06/21/23 11:01 06/21/23 11:15 Temperature Pulse Rate 79 79 95 Pulse Rate [Pulse Oximeter] Pulse Rate [orthos tatic lying] Pulse Rate [orthos tatic sitting] Pulse Rate [orthos tatic standing] Respiratory Rate Blood Pressure 129/81 Blood Pressure [Ri ght Upper Arm] Blood Pressure [or thostatic lying Ri ght Arm] Blood Pressure [or thostatic sitting Right Arm] Blood Pressure [or thostatic standing Right Arm] Pulse Oximetry 97 96 98 Oxygen Delivery Me thod 06/21/23 11:25 06/21/23 11:30 06/21/23 11:31 Temperature Pulse Rate 74 76 Pulse Rate [Pulse Oximeter] Pulse Rate [orthos tatic lying] 72 Pulse Rate [orthos tatic sitting] 100 Pulse Rate [orthos tatic standing] 96 Respiratory Rate Blood Pressure 128/90 H Blood Pressure [Ri ght Upper Arm] Blood Pressure [or thostatic lying Ri ght Arm] 113/76 Blood Pressure [or thostatic sitting Right Arm] 125/96 H Blood Pressure [or thostatic standing Right Arm] 113/89 Pulse Oximetry 98 98 Oxygen Delivery Me thod 06/21/23 11:42 06/21/23 11:43 06/21/23 11:44 Temperature Pulse Rate 79 90 104 H Pulse Rate [Pulse Oximeter] Pulse Rate [orthos tatic lying] Pulse Rate [orthos tatic sitting] Pulse Rate [orthos tatic standing] Respiratory Rate Blood Pressure 113/76 125/96 H 113/89 Blood Pressure [Ri ght Upper Arm] Blood Pressure [or thostatic lying Ri ght Arm] Blood Pressure [or thostatic sitting Right Arm] Blood Pressure [or thostatic standing Right Arm] Pulse Oximetry 98 100 99 Oxygen Delivery Me thod 06/21/23 11:45 06/21/23 11:49 06/21/23 12:00 Temperature Pulse Rate 96 78 Pulse Rate [Pulse Oximeter] Pulse Rate [orthos tatic lying] Pulse Rate [orthos tatic sitting] Pulse Rate [orthos tatic standing] Respiratory Rate Blood Pressure 127/77 Blood Pressure [Ri ght Upper Arm] Blood Pressure [or thostatic lying Ri ght Arm] Blood Pressure [or thostatic sitting Right Arm] Blood Pressure [or thostatic standing Right Arm] Pulse Oximetry 100 97 Oxygen Delivery Me thod 06/21/23 12:01 06/21/23 12:15 06/21/23 12:31 Temperature Pulse Rate 72 79 72 Pulse Rate [Pulse Oximeter] Pulse Rate [orthos tatic lying] Pulse Rate [orthos tatic sitting] Pulse Rate [orthos tatic standing] Respiratory Rate Blood Pressure 122/81 Blood Pressure [Ri ght Upper Arm] Blood Pressure [or thostatic lying Ri ght Arm] Blood Pressure [or thostatic sitting Right Arm] Blood Pressure [or thostatic standing Right Arm] Pulse Oximetry 96 97 97 Oxygen Delivery Me thod 06/21/23 12:32 06/21/23 12:45 06/21/23 13:00 Temperature Pulse Rate 73 80 76 Pulse Rate [Pulse Oximeter] Pulse Rate [orthos tatic lying] Pulse Rate [orthos tatic sitting] Pulse Rate [orthos tatic standing] Respiratory Rate Blood Pressure 123/72 Blood Pressure [Ri ght Upper Arm] Blood Pressure [or thostatic lying Ri ght Arm] Blood Pressure [or thostatic sitting Right Arm] Blood Pressure [or thostatic standing Right Arm] Pulse Oximetry 98 95 97 Oxygen Delivery Me thod 06/21/23 13:02 06/21/23 14:05 06/21/23 16:23 Temperature Pulse Rate Pulse Rate [Pulse Oximeter] Pulse Rate [orthos tatic lying] Pulse Rate [orthos tatic sitting] Pulse Rate [orthos tatic standing] Respiratory Rate Blood Pressure 125/82 121/79 Blood Pressure [Ri ght Upper Arm] Blood Pressure [or thostatic lying Ri ght Arm] 113/73 Blood Pressure [or thostatic sitting Right Arm] 116/75 Blood Pressure [or thostatic standing Right Arm] 121/82 Pulse Oximetry Oxygen Delivery Me thod Documenting provider has reviewed patient's vital signs: yes Course Vital Signs Vital signs: Initial Vital Signs Temperature 99.2 F 06/21/23 10:51 Temperature Source Temporal Artery Scan 06/21/23 10:51 Pulse Rate 96 06/21/23 10:51 Pulse Rhythm Regular 06/21/23 10:51 Respiratory Rate 20 06/21/23 10:51 Blood Pressure 134/90 H 06/21/23 10:51 Blood Pressure Mean 104 06/21/23 10:51 Blood Pressure Position Supine 06/21/23 10:51 Pulse Oximetry 97 06/21/23 10:51 Oxygen Delivery Method Room Air 06/21/23 10:51 Vital Signs Temperature 99.2 F 06/21/23 10:51 Pulse Rate 96 06/21/23 10:51 Respiratory Rate 20 06/21/23 10:51 Blood Pressure 134/90 H 06/21/23 10:51 Pulse Oximetry 97 06/21/23 10:51 Oxygen Delivery Method Room Air 06/21/23 10:51 Temperature 99.2 F 06/21/23 10:51 Pulse Rate 76 06/21/23 13:00 Respiratory Rate 20 06/21/23 10:51 Blood Pressure 113/73 06/21/23 16:23 Pulse Oximetry 97 06/21/23 13:00 Oxygen Delivery Method Room Air 06/21/23 10:51 Medications Administered Medications: Discontinued Medications Generic Name Dose Route Start Last Admin Trade Name Floridalma PRN Reason Stop Dose Admin Diazepam 5 mg 06/21/23 12:00 06/21/23 12:35 Diazepam 5 Mg/Ml Inj IV 06/21/23 12:01 5 mg ONCE ONE Administration Sodium Chloride 1,000 mls @ 1,000 mls/hr 06/21/23 12:00 06/21/23 13:26 0.9 % Sodium Chloride 1000 Ml IV 06/21/23 12:59 Infused .Q1H ONE Infusion Sodium Chloride 1,000 mls @ 1,000 mls/hr 06/21/23 15:39 06/21/23 16:20 0.9 % Sodium Chloride 1000 Ml IV 06/21/23 16:38 Infused .Q1H ONE Infusion Ondansetron HCl 4 mg 06/21/23 12:00 06/21/23 12:35 Ondansetron 2 Mg/Ml Inj IVP 06/21/23 12:01 4 mg ONCE ONE Administration Medical Decision Making MDM Narrative Medical decision making narrative: Does appear to need some fluid volume or is a pressure missense. Has orthostatic hypotension to some degree. Persistent inner ear inflammation related to COVID? Feedback/vasovagal from persistent abdominal pain? Nausea related? Unclear etiology to new resting low vagal tone? Does not appear to have tachycardia-unlikely POTS. Understandably complicated by anxiety over current condition I suspect. Will assess on environmental monitoring technician for possible arrhythmia. Assess cardiac function with echocardiogram if possible. Would consider anemia but normal labs yesterday. Complicated by a what appear to be historically peripheral vertiginous symptoms. Zofran and Valium trial as well. Feels quite a bit better after Zofran and initiation of fluid bolus. Did also receive Valium I think this contribute more to a sense of sleepiness than anything else. Rescanning head as symptoms have changed. I suspect this will be normal/unchanged. Lab work was done yesterday; I do not think necessary to repeat. Head CT reviewed by me looks to be unchanged. No acute abnormality Reviewing records it appears there has not been echocardiogram done. Was able to arrange for that here while in the emergency department. Reported by technologist to have normal LV function at a minimum. Pending formal cardiology review. Looks much better on reassessment. Repeat orthostatics are normal and markedly less symptomatic. Might benefit from physical therapy care. See patient discharge plan further discussion Medical Records Medical records reviewed: Yes I reviewed the patient's medical records Lab Data Lab results reviewed: Yes I reviewed the patient's lab results Labs: Lab Results 06/21/23 Range/Units 16:52 Urine Color Yellow (Yellow) Urine Appearance Clear (Clear) Urine pH 6.0 (5.0-8.5) Ur Specific [place] 1.025 (1.000-1.030) Urine Protein Negative (Negative) Urine Glucose (UA) Negative (Negative) Urine Ketones 2+ A (Negative) Urine Blood Negative (Negative) Urine Nitrite Negative (Negative) Urine Bilirubin Negative (Negative) Urine Urobilinogen 0.2 (0.2-1.0) Ur Leukocyte Esterase Negative (Negative) Urine RBC 0-2 (0-2) Urine WBC 0-2 (0-5) Ur Squamous Epith Cells Few (None-Few) Urine Bacteria None (None) Urine Opiates Screen Negative (Negative) Ur Oxycodone Screen Negative (Negative) Urine Methadone Screen Negative (Negative) Ur Barbiturates Screen Negative (Negative) U Tricyclic Antidepress Negative (Negative) Ur Phencyclidine Scrn Negative (Negative) Ur Amphetamines Screen Negative (Negative) U Methamphetamines Scrn Negative (Negative) U Benzodiazepines Scrn POSITIVE A (Negative) Urine Cocaine Screen Negative (Negative) U Marijuana (THC) Screen Negative (Negative) Ur Drug Screen Comment See Note Discharge Plan Discharge Clinical Impression: Orthostatic lightheadedness, Positional vertigo, Orthostatic hypotension, Abdominal pain Patient Disposition: Home w/ Parent or Adult Condition: Improved Additional Instructions: Stay well-hydrated drinking 2-3 L of water daily. Nausea can certainly contribute to lightheadedness. I suppose pain could also be contributing to nausea. Zofran from [facility]. Orthostatics such as yours would also be a reason for lightheadedness. Otherwise you seem to also have had some component of vertigo possibly from an inner ear origin. You do have meclizine available. Consider taking that 3 times a day for the next 3-5 days if it does not make you too tired. For worse dizziness, I have sent in a few tablets of Valium as well. You might be helped by Physical therapy; please discuss with your primary care provider. You might need a broader neurological or hormonal workup. Again I have to defer to your primary care provider. I really do not know enough about post COVID syndrome to say whether not or how this might be related to your symptoms. Will call if there are remarkable findings in your urine. Prescriptions: New diazepam [Valium] 5 mg tablet 2.5 - 5 mg PO BID PRN (Reason: dizziness or vertigo) Qty: 6 0RF No Action fluoxetine 20 mg capsule 20 mg PO QDAY Qty: 180 2RF omeprazole 20 mg capsule,delayed release(DR/EC) 20 mg PO QDAY Qty: 90 4RF Probiotic 3 billion cell capsule 3,000 mmu cells PO QDAY Rx Instructions: administer with a meal meclizine [Dramamine (meclizine)] 25 mg tablet 12.5 mg PO BID-TID PRN sertraline [Zoloft] 50 mg tablet 50 mg PO DAILY Qty: 30 2RF dextroamphetamine-amphetamine [Adderall] 10 mg tablet 10 mg PO .PRN Qty: 60 0RF Rx Instructions: administer doses at least 4-6 hours apart Follow Up/Referrals: Vandana Copeland MD [Primary Care Provider] - Stand Alone Forms: [employer] Info Instructions
[2023-06-21 16:58] LABS: Appearance Urine Clear (Clear); Bilirubin Urine Negative (Negative); Blood Urine Negative (Negative); Color Urine Yellow (Yellow); Glucose Urine Negative (Negative); Ketones Urine 2+ (Negative); Leukocyte Esterase Urine Negative (Negative); Nitrite Urine Negative (Negative); Protein Urine Negative (Negative); Specific Gravity Urine 1.025 (1.000-1.030); Urobilinogen Urine 0.2 (0.2-1.0)
[2023-06-21 17:09] LABS: Amphetamine Screen Urine Negative (Negative); Barbiturate Screen Urine Negative (Negative); Benzodiazepines Screen Urine POSITIVE (Negative); Cannabinoid Screen Urine Negative (Negative); Cocaine Screen Urine Negative (Negative); Methadone Screen Urine Negative (Negative); Methamphetamines Screen Urine Negative (Negative); Opiate Screen Urine Negative (Negative); Oxycodone Screen Urine Negative (Negative); Phencyclidine Screen Urine Negative (Negative); RBC Urine 0-2 (0-2); Squamous Epithelial Cell Urine Few (None-Few); Tricyclic Antidepressant Urine Negative (Negative); WBC Urine 0-2 (0-5)
== END 2023-06-21 14:55 | disposition home or self-care (01) ==
PROVIDERS: Emergency Provider Family Medicine; PCP Family Medicine
DX: I95.1 Orthostatic hypotension (principal); H81.10 Benign paroxysmal vertigo, unspecified ear; R10.9 Unspecified abdominal pain
CPT/HCPCS: 70450; 80306; 81001; 93306; 96374; 96375; 99284; J2405; J3360; J7030

== ENCOUNTER 2023-07-02 13:32 | Outpatient (CLI) | payer OTHER, SELFPAY ==
--- OUTSIDE RECORDS SUMMARY | 2023-07-02 13:34 | XMS_ITS | Encounter Summary ---
Author Name Unknown Organization [facility] Address [address] [place] [address] Care Team Providers Care Salvage Mechanic Name Role Phone None Reported, Pcp Primary Care Provider Unavail able Reason for Visit * Reason Comments Leg Swelling Encounter Details Date Type Department Care Team (Late st Contact Info) Description 06/14/2023 3:04 PM CDT - 06/14/2023 5:47 PM CDT Emergency [facility] [address] [place] [phone] Wayne Barbosa APRN, C.N.P., D.N.P. [address] [place] [address] Edema Leg (Primary Dx); Edema [...] Instructions * Discharge Instructions* Wayne Barbosa APRN, C.N.Bobby., D.N.P. - 06/14/2023 5:21 PM CDT Keep [...] a blood clot. Thank you for utilizing [facility] for your care! * Attachments The following attachments cannot be sent through Care Everywhere. * Edema [id number] (Luxembourgish) documented in this encounter Medications at Time of Discharge Medication Sig Dispensed Refills Start Date End Date FLUoxetine (PROzac) 20 mg tablet Take by mouth daily. furosemide (LASIX) 20 mg tablet Take 1 tablet (20 mg total) by mouth daily. 3 tablet 06/14/2023 documented as of this encounter ED [...] she had abdominal surgery on 05/07/[address] [facility] for debulking of bilateral ovarian cysts. The [...] feel somewhat swollen. History provided by: Patient proposal writer needed/used: no REVIEW OF SYSTEMS Constitutional: Positive [...] ED Course as of 06/14/232001Jun 14, 2023 1517 I performed my initial evaluation of the [...] D.N.P. FOLLOW UP Contact Information for Follow-ups [place] Next Steps: Follow up in 1 week(s) Insert Wayne Barbosa DNP, VICTOR HUGO, MANAGER URGENT CARE-C, AGACNP-BC, ENP-C Emergency Medicine Wayne Barbosa APRN, [...] CDT) Ventricular Rate ECG/Min 77 BPM MUSE [place] Interval 156 ms MUSE QRSD Interval 96 ms MUSE QT Interval 384 ms MUSE QTC Interval 434 ms MUSE P [place] 42 degrees MUSE R [place] 31 degrees MUSE T Wave [place] 33 degrees MUSE 06/14/2023 3:43 PM CDT 06/14/2023 4:22 PM CDT Impressions MUSE - 06/14/2023 3:55 PM CDT Normal sinus rhythm Low voltage QRS Probably normal ECG variant No previous ECGs available Revised Report Narrative Procedure Note Tortio Mullen Jr., M.D. - 06/14/2023 IMPRESSION: Normal [...] Barbosa APRN, C.N.P., D.N.P. [place] [address], [facility] CN[facility] [place] [address] * D-Dimer (06/14/2023 3:30 PM CDT) D-Dimer, [...] Barbosa APRN, C.N.P., D.N.P. LAB BLOOD ADD-ON [address] [address], [facility] in [address] [address] * Comprehensive Metabolic Panel (06/14/2023 3:30 PM [...] C.N.P., D.N.P. LAB BLOOD ADD-ON [facility] [address] [place] [address], [facility] CN[facility] in [place] [id number] * CBC with Differential, Blood (06/14/2023 3:30 PM CDT) [facility] Hemoglobin 13.8 11.6 - 15.0 g/dL 06/14/2023 [...] C.N.P., D.N.P. LAB BLOOD ADD-ON [facility] [address] [address], [facility] CN[facility] in [address] [address] documented in this encounter Visit Diagnoses Diagnosis [...] R.N.) documented in this encounter Care Teams Salvage Mechanic Relationship Specialty Start Date End Date None Reported, Pcp PCP - General Family Medicine 06/14/23 documented as of this encounter
--- OUTSIDE RECORDS SUMMARY | 2023-07-02 13:34 | XMS_ITS | Clinical Summary ---
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 [address] [place] [address] 06/21/2023 Travel 05/08/2023 Lab Requisition [facility] [phone] Jayde Livingston MD from Last 3 Months [...] Comments Blood Pressure 126/83 03/27/2013 11:08 AM FRONT OFFICE AGENT Pulse 84 03/27/2013 11:08 AM FRONT OFFICE AGENT Temperature 36.8 ??C (98.3 ??F) 03/27/2013 11:[address] Respiratory Rate 18 01/11/2010 10:59 AM CDT Oxygen Saturation 99% 03/27/2013 11:08 AM FRONT OFFICE AGENT Inhaled Oxygen Concentration - - Weight 72.2 kg (159 lb 3.2 oz) 03/27/2013 11:08 AM FRONT OFFICE AGENT Height 177.8 cm (5' 10) 03/27/2013 11:08 AM FRONT OFFICE AGENT Body Mass Index 22.84 03/27/2013 11:08 AM FRONT OFFICE AGENT Plan of Treatment Upcoming Encounters Date Type Department Care Team (Late st Contact Info) Description 07/02/2023 2:00 PM CDT Ancillary Procedure [facility] [address] [place] [address] Health Maintenance Due Date Last Done Comments Depression screening for age 12+ 1999 BMI (ht and wt on same day) for age 18+ 06/30/2005 Hepatitis C screening for age 18-79 06/30/2005 Tetanus booster 09/13/2019 09/12/2009, 12/19/1998 Pap test for age 21-65 10/28/2021 9, 10/28/2018, 10/07/2015, Additional history exists COVID-19 vaccine series (2022- season) 2022 Influenza for age 9-49 11/10/2023 01/07/2008 HIV for age 15-65 Completed 05/21/2007 Tdap Completed 09/12/2009 Pneumococcal series for age 6-64 Aged Out No longer eligible based on patient's age to complete this topic Procedures Procedure Name Priority Date/Time Associated Diagnosis Comments ECHO TTE COMPLETE WO CONTRAST Routine 06/21/2023 2:40 PM CDT Dizziness Orthostatic lightheadedness LAB TRACKING EVENT Routine 05/08/2023 12 :44 PM FRONT OFFICE AGENT PATH TISSUE EXAM Routine 05/08/2023 11:1 5 AM FRONT OFFICE AGENT ASSOCIATE DEAN THIN PREP PAP SCREEN IMAGED Routine 10/28/2018 11:00 AM CDT ANTI HIV 1/2 Routine 05/21/2007 11:53 AM CDT Supervision Of Normal First from Last 3 Months or Most Recently Relevant to Health Maintenance Results * ECHO TTE COMPLETE WO CONTRAST (06/21/2023 2:40 PM CDT) AORTIC VALVE MEAN PG 5 mmHg EJECTION FRACTION 59 % LVEDD 4.3 cm Anatomical Region Laterality Modality Ultrasound 06/21/2023 2:09 PM CDT Narrative 06/21/2023 2:56 PM CDT ECHOCARDIOGRAM PRINCE PATHAK ? Accession#: ?? [id number] : ?1985 37 years Study Date: ?? 06/21/2023 2:09:44 PM Gender: F ?BP: ? 121/79 mmHg Height: 178.00 cm ?BSA: ?1.89 m? ? ? Weight: 72.00 kg ? Tech: ? MSR ? Referring MD: VADIM DEMARCO Site: ? [facility] Reading Location: Mobile [place] Patient Location: Inpatient. Procedure: 2D, Color Doppler and Spectral Doppler. Indication for study: Dizziness; Orthostatic lightheadedness Cardiac Rhythm: Regular.Study quality: Final Impressions: 1. Normal left ventricular size, normal wall thickness, normal global systolic function, calculated EF of 59 %. 2. Right ventricular cavity size is normal, global systolic RV function is normal. 3. Normal valve function. Comparison There are no prior studies on this patient for comparison purposes. Chamber Sizes and Function Normal left ventricular size, normal wall thickness, normal global systolic function, calculated EF of 59 %. Left atrial size is normal. Left atrial pressure is normal. Right ventricular cavity size is normal, global systolic RV function is normal. RV wall thickness is normal. The right atrium is normal. The pulmonary artery is of normal size and origin. The sinus of Valsalva is normal sized. The ascending aorta is normal sized. Valves, RV Pressures and Diastolic Function The aortic valve is normal in structure and trileaflet, no stenosis and no regurgitation. The mitral valve is normal in structure, no mitral regurgitation. Normal diastolic function. The tricuspid valve is normal in structure. Tricuspid regurgitation is regurgitation is not evident. Unable to assess right ventricular systolic pressure. The pulmonic valve is normal. No pulmonary regurgitation. Masses, Effusion, Shunts There is no pericardial effusion. The inferior vena cava is normal sized, respiratory size variation greater than 50%. No left to right shunting was detected by limited color flow Doppler interrogation of the interatrial septum. MEASUREMENTS AND CALCULATIONS 2-D Measurements and LV Function: LVID (d) 4.2 cm Planimetered EF 59 % LVID (s) 2.6 cm LV FS% (2D) ? 39 % IVS (d) ??1.0 cm LVOT diameter ?? 2.2 cm LVPW (d) 0.9 cm HR ?73 bpm Ao Sinus 3.4 cm LA Vol index ?24 ml/m2 Asc Ao ?? 3.2 cm RV Max 4C (d) ?? 3.7 cm Diastology: Mitral ?Tissue Doppler E Peak 0.8 m/s ??e', Septum ? 0.08 m/s A Peak 0.6 m/s ??e', Lateral ?0.15 m/s E/A ?1.2 ?E/e' Average ?? 6.74 DT ? 169 msec Aortic Valve: Vmax ? 1.4 m/s ??JONATHAN (V) ?? 3.16 cm? ? ? VTI ?0.31 m ?? JONATHAN (I) ?? 3.00 cm? ? ? LVOT V max 1.1 m/s ??Max PG ?8 mmHg LVOT VTI ?? 0.24 m ?? Mean PG ?? 5 mmHg SV ? 92 ml ?Dim Index 0.78 SV index ?? 49 ml/m? ? ? CO ?6.7 l/min ?CI ?3.6 l/min/m? ? ? Mitral Valve: MVA ?4.5 cm? ? ? MV P 1/2 49 msec . This study was interpreted by an [facility] accredited facility. CC: HIM (med records) [facility], Med/Surg - IP [facility]. ??Final ?? Procedure Note Adalid Venegas MD - 06/21/2023 ECHOCARDIOGRAM PRINCE PATHAK : 1985 37 years Study Date: 06/21/2023 2:09:44 PM Gender: F BP: 121/79 mmHg Height: 178.00 cm BSA: 1.89 m? ? ? Weight: 72.00 kg Tech: MSR Referring MD: VADIM DEMARCO Site: [facility] Reading Location: Mobile [facility] Patient Location: Inpatient. Procedure: 2D, Color Doppler and Spectral Doppler. Indication for study: Dizziness; Orthostatic lightheadedness Cardiac Rhythm: Regular.Study quality: Final Impressions: 1. Normal left ventricular size, normal wall thickness, normal globalsystolic function, calculated EF of 59 %. 2. Right ventricular cavity size is normal, global systolic RV functionis normal. 3. Normal valve function. Comparison There are no prior studies on this patient for comparison purposes. Chamber Sizes and Function Normal left ventricular size, normal wall thickness, normal globalsystolic function, calculated EF of 59 %. Left atrial size is normal. Leftatrial pressure is normal. Right ventricular cavity size is normal, globalsystolic RV function is normal. RV wall thickness is normal. The rightatrium is normal. The pulmonary artery is of normal size and origin. Thesinus of Valsalva is normal sized. The ascending aorta is normal sized. Valves, RV Pressures and Diastolic Function The aortic valve is normal in structure and trileaflet, no stenosis and noregurgitation. The mitral valve is normal in structure, no mitralregurgitation. Normal diastolic function. The tricuspid valve is normal instructure. Tricuspid regurgitation is regurgitation is not evident. Unableto assess right ventricular systolic pressure. The pulmonic valve isnormal. No pulmonary regurgitation. Masses, Effusion, Shunts There is no pericardial effusion. The inferior vena cava is normal sized,respiratory size variation greater than 50%. No left to right shunting wasdetected by limited color flow Doppler interrogation of the interatrialseptum. MEASUREMENTS AND CALCULATIONS 2-D Measurements and LV Function: LVID (d) 4.2 cm Planimetered EF 59 % LVID (s) 2.6 cm LV FS% (2D) 39 % IVS (d) 1.0 cm LVOT diameter 2.2 cm LVPW (d) 0.9 cm HR 73 bpm Ao Sinus 3.4 cm LA Vol index 24 ml/m2 Asc Ao 3.2 cm RV Max 4C (d) 3.7 cm Diastology: Mitral Tissue Doppler E Peak 0.8 m/s e', Septum 0.08 m/s A Peak 0.6 m/s e', Lateral 0.15 m/s E/A 1.2 E/e' Average 6.74 DT 169 msec Aortic Valve: Vmax 1.4 m/s JONATHAN (V) 3.16 cm? ? ? VTI 0.31 m JONATHAN (I) 3.00 cm? ? ? LVOT V max 1.1 m/s Max PG 8 mmHg LVOT VTI 0.24 m Mean PG 5 mmHg SV 92 ml Dim Index 0.78 SV index 49 ml/m? ? ? CO 6.7 l/min CI 3.6 l/min/m? ? ? Mitral Valve: MVA 4.5 cm? ? ? MV P 1/2 49 msec . This study was interpreted by an [facility] accredited facility. CC: HIM (med records) [facility], Med/Surg - IP [facility]. Final Vadim Demarco ECHO ORD * LAB TRACKING EVENT (05/08/2023 12:44 PM FRONT OFFICE AGENT) Other (Other) Client Collect / Unknown 05/08/2023 12:44 PM FRONT OFFICE AGENT 05/08/2023 9:16 PM FRONT OFFICE AGENT Jayde Livingston MD LAB BILL ONLY [facility] [address] [place] [address], * PATH TISSUE EXAM (05/08/2023 11:15 AM FRONT OFFICE AGENT) Case Report Pathology Report ?Case: [id number] ? Authorizing Provider: ??Jayde Livingston MD ?Collected: ? 05/08/2023 1115 ? Ordering Location: ? [facility] ?Received: ?05/09/2023 0802 ? Pathologist: ? Anjelica Bernal MD ? Specimens: ?? A) - Endometrial Curettings ? B) - Left Ovarian Cyst ? C) - Bilateral Fallopian Tubes ? D) - Right Ovarian Cyst ? 05/10/2023 3:18 PM FRONT OFFICE AGENT [facility] LABORATORY-C ENTRAL LABORATORY Final Diagnosis A) ENDOMETRIUM, [...] 2. Negative for malignancy 05/10/2023 3:18 PM FRONT OFFICE AGENT [facility] LABORAT[facility]-C ENTRAL LABORATORY Clinical Information Ovarian cysts 05/10/2023 3:18 PM FRONT OFFICE AGENT [facility] Gross Description A) Received [...] adhesions and a patent stellate lumen throughout. ??Atm Manager sections are submitted as follows: 1, 2. ??Atm Manager cross-sections and entire fimbriated end of blue inked tube 3, 4. ??Atm Manager cross-sections and entire fimbriated end of noninked tube D) Received in formalin, labeled with the patient's name and right ovarian cyst, is a 2 x 1.2 x 0.1 cm aggregate of portions of underwood fibromembranous tissue with no papillations or solid areas. ??The specimen is entirely submitted in 2 cassettes. TRB 05/09/2023 05/10/2023 3:18 PM FRONT OFFICE AGENT [facility]-C ENTRAL LABORATORY Microscopic Description The final diagnosis is based on microscopic examination of appropriate sections of all specimens. 05/10/2023 3:18 PM [facility] LABORATORY-C ENTRAL LABORATORY Additional Information Interpreted at [facility], Central Laboratory - [address] [place], [place] [address], [place] [address] 05/10/2023 3:18 PM [facility]AL LAB[facility]ATORY Other (Endometrial Curettings) 05/08/2023 11:15 AM FRONT OFFICE AGENT 05/09/2023 8:02 AM FRONT OFFICE AGENT Specimen (specimen) (Left Ovarian Cyst) 05/08/2023 11:29 AM FRONT OFFICE AGENT 05/09/2023 8:02 AM FRONT OFFICE AGENT Specimen (specimen) (Bilateral Fallopian Tubes) 05/08/2023 11:39 AM FRONT OFFICE AGENT 05/09/2023 8:02 AM FRONT OFFICE AGENT Specimen (specimen) (Right Ovarian Cyst) 05/08/2023 12:05 PM FRONT OFFICE AGENT 05/09/2023 8:02 AM FRONT OFFICE AGENT Jayde Livingston MD PATHOLOGY/CYTOLOGY [facility] [address] [place] [address], * ASSOCIATE DEAN THIN PREP PAP SCREEN IMAGED (10/28/2018 11:00 AM CDT) Case Report Gynecologic Cytology Report ? Case: [id number] ? Authorizing Provider: ??Miri Neal MD ?Collected: ? 10/28/2018 1100 ? Ordering Location: ? [facility] ?Received: ?10/29/2018 1205 ? First Screen: ?Ace Araujo ? Specimen: ?ASSOCIATE DEAN ThinPrep Vial Screening, Cervical/Vaginal ? 11/06/2018 2:33 PM CDT [facility] LABORATORY-C ENTRAL LABORATORY INTERPRETATION/ RESULT NEGATIVE FOR INTRAEPITHELIAL LESION OR MALIGNANCY (NIL) (none) 11/06/2018 2:33 PM CDT [facility] LABORAT[facility] IMEN ADEQUACY Satisfactory for evaluation Endocervical component present Scant cellularity 11/06/2018 2:33 PM CDT [facility] ENTRMO LABORATORY HPV REQUEST HPV and PAP 11/06/2018 2:33 PM CDT [facility] EN[facility]AL LABORATORY Date of LMP 10/21/2018 11/06/2018 2:33 PM CDT [facility] EN[facility] Last Pap Date 10/07/2015 11/06/2018 2:33 PM CDT [facility] Last Pap Result NIL 9 2:33 PM CDT [facility] Automated Review Successful 11/06/2018 2:33 PM CDT [facility] Comment:Specimen processed s uccessfully by automated blade aligner device, [employer] HoldingsPrep Imaging System, [employer] ANCILLARY TESTING ASSOCIATE DEAN HPV Ordered, Please see separate report 11/06/2018 2:33 PM CDT [facility] Note The pap test is a screening [...] lesions. Cytology is screened and interpreted at [facility] - [address], [place] [address] and [facility] - [address]; [place] [address] and [facility] - [address]; [place] [address] [facility] [address]; [place] [address] 11/06/2018 2:33 PM CDT [facility] Other (Cervical/Vagina l) 10/28/2018 11:00 AM CDT 10/29/2018 12:05 PM CDT Miri Neal MD PATHOLOGY/CYTOLOGY [facility] [address] [place] [address], [place] * ANTI HIV 1/2 (05/21/2007 11:53 AM CDT) ANTI HIV 1/2 Non-reacti ve [facility] Blood specimen (specimen) BLOOD SPECIMEN / Unknown 05/21/2007 11:53 AM CDT 05/21/2007 11:49 AM CDT Abraham Slater MD SEND OUTS [facility] INTERNAL ZIP [address] [place] [address] from Last 3 Months or Most Recently Relevant to Health Maintenance Care Teams Gun Sealing Machine Operator Relationship Specialty Start Date End Date Brynn Moss MD [address] [place] [address] PCP - General Family Practice 11/20/10
--- OUTSIDE RECORDS SUMMARY | 2023-07-02 13:34 | XMS_ITS | Referral Summary ---
Author Name Unknown Organization [facility] Address [address] [place] [address] Care Team Providers Care Gate Mortiser Operator Name Role Phone None Reported, Pcp Primary Care Provider Unavail able Source Comments Patient records contain information from all sites at [facility]. For routine questions regarding patient records, call [phone] during business hours, M-F 8:00 AM - 5:00 PM Central Time. Record requests for emergency care only can be directed to [phone] at any time[address] Encounters Date Type Department Care Team Description 06/14/2023 3:04 PM CDT - 06/14/2023 5:47 PM CDT Emergency [facility] [address] [place] [phone] Wayne Barbosa APRN, C.N.P., D.N.P. Edema Leg (Primary Dx); Edema Peripheral Discharge Disposition: Home or Self Care from Last 3 Months Allergies Active Allergy Reactions Criticality Noted Date Comments Indomethacin GI intolerance,Itching,Nausea Only 12/16/2012 Medications Medication Sig Dispensed Refills Start Date End Date Status FLUoxetine (PROzac) 20 mg tablet Take by mouth daily. Active furosemide (LASIX) 20 mg tablet Take 1 tablet (20 mg total) by mouth daily. 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 ECG ORDERABLES Performing Organization Address City/[facility]/ZIP Co de Phone Number MUSE NA [...] Nereyda Maguire APRN.N.P., D.N.P. LAB BLOOD ADD-ON [facility] [address] [place] [address], [place] CNFL [facility] in [address] [address] * D-Dimer (06/14/2023 3:30 PM CDT) D-Dimer, [...] Barbosa APRN, C.N.P., D.N.P. LAB BLOOD ADD-ON [facility] [address] [place] [address], [place] [address] * CBC with Differential, Blood (06/14/2023 3:30 PM CDT) Pathologist [facility] Hemoglobin 13.8 11.6 - 15.0 g/dL 06/14/2023 [...] Barbosa APRN, C.N.P., D.N.P. LAB BLOOD ADD-ON [facility] [address] [place] [address], [facility] CNFL [place] [address] * Comprehensive Metabolic Panel (06/14/2023 3:30 PM [...] Barbosa APRN, C.N.P., D.N.P. LAB BLOOD ADD-ON [facility] [address] [place] [address], [facility] CNFL [facility] in [address] [address] from Last 3 Months Care Teams Gate Mortiser Operator Relationship Specialty Start Date End Date None Reported, Pcp PCP - General Family Medicine 06/14/23
--- OUTSIDE RECORDS SUMMARY | 2023-07-02 13:34 | XMS_ITS | Clinical Summary ---
Author Name Unknown Organization [facility] Address [address] [place] [address] Care Team Providers Care Hide Mill Worker Name Role Phone None Reported, Pcp Primary Care Provider Unavail able Source Comments Patient records contain information from all sites at [facility]. For routine questions regarding patient records, call [phone] during business hours, M-F 8:00 AM - 5:00 PM Central Time. Record requests for emergency care only can be directed to [phone] at any time.[facility] Allergies Active Allergy Reactions Criticality Noted Date [...] CDT - 06/14/2023 5:47 PM CDT Emergency [facility] [address] [place] [phone] Wayne Barbosa APRN, C.N.P., D.N.P. 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 - 06/14/2023 IMPRESSION: Normal sinus rhythm Low voltage QRS Probably normal ECG variant No previous ECGs available Revised Report Nereyda Maguire APRN.N.P., D.N.P. ECG ORDERABLES MUSE NA * NT-Pro [...] Nereyda Maguire APRN.N.P., D.N.P. LAB BLOOD ADD-ON [facility] [address] [place] [address], [facility] CNFL [facility] in [address] [address] * D-Dimer (06/14/2023 3:30 PM CDT) D-Dimer, [...] Barbosa APRN, C.N.P., D.N.P. LAB BLOOD ADD-ON [facility] [address] [place] [address], [facility] CNFL [facility] [address] * CBC with Differential, Blood (06/14/2023 3:30 PM CDT) Pathologist [facility] Hemoglobin 13.8 11.6 - 15.0 g/dL 06/14/2023 [...] Barbosa APRN, C.N.P., D.N.P. LAB BLOOD ADD-ON [facility] [address] [place] [address], [facility] CNFL [facility] [address] * Comprehensive Metabolic Panel (06/14/2023 3:30 PM [...] CNFL Comment: Estimated GFR calculated using the 2021 CKD_EPI creatinine equation. Calcium, Total, P 9.5 [...] D.N.P. LAB BLOOD ADD-ON Performing Organization Address [facility]/State/ZIP Co de Phone Number [facility] [address] [place] [phone], [facility] CNFL [facility] in [address] [address] from Last 3 Months Care Teams Hide Mill Worker Relationship Specialty Start Date End Date None Reported, Pcp PCP - General Family Medicine 06/14/23
--- OUTSIDE RECORDS SUMMARY | 2023-07-02 13:34 | XMS_ITS | Continuity of Care Document ---
Author Name Unknown Organization [facility] Address [address] [place] [address] Phone Care Team Providers Care Flat Folder Name Role Phone Padmini KUMAR, Daniel Unavailable [...] suspected, a test for HCV RNA(test code 13312) is suggested. For additional information please refer [email or web address] [email or web address].[email or web address]/fa [email or web address](This link is being provided for informational/ educational purposes only.) Advance Directives Directive Yes / No Effective Date File Name No Information Encounters Encounter Description Practice Location Reason(s) For Visit Diagnoses Date Provider Providers Copied on Encounter Office/Outpa tient Visit, New [facility], [address], [place], [address], [place] tel:[phone] [facility], low back pain (chief complaint) Low back pain 3 Padmini Sanchez. [facility] [address], [place], [address], [place]. tel:[phone] Referring Provider: Daniel Torres, [facility] [address], [place], [address]. tel:[phone] Family History Family Member Type Diagnosis Age At Onset Maternal aunt Problem rheumatoid arthritis Maternal aunt Problem Systemic lupus erythematosu s Payers Payer name Insurance type Covered democrat ID Authoriza tion(s) Preferred One CI [id number] Social History Type Description Quantity Date Captured [...]
--- OUTSIDE RECORDS SUMMARY | 2023-07-02 13:34 | XMS_ITS ---
Author Name Unknown Organization [facility] Address [address] [place] [address] Care Team Providers Care Project Analyst Name Role Phone Unavailable Unavailable Unavailable Surgery Details Not on file Complications Check Surgery Details section. Procedure Estimated Blood Loss Check Surgery Details section. Procedure Findings Check Surgery Details section. Procedure Specimens Taken Check Surgery Details section.
[2023-07-02 15:00] VITALS: BP 129/87; PULSE 108
--- NOTE | 2023-07-02 15:23 | W.PM.STED ---
Stress Test Note Date Date Seen: 07/02/23 Date of test: 07/02/23 Providers Referring provider: Cliff Johnston Primary care provider: Vandana Copeland Stress test physician: Marisol Cruz Stress Test Note Stress test ordered: Stress Echo Indication for test: Episodes dizziness Stress test medicine: None Results discussion: Resting EKG: Sinus rhythm, 89 beats per minute Resting blood pressure: 130/85 Stress test: Patient consented on stress test ordered. Patient followed a standard Paul protocol treadmill exercise stress test protocol. She was able to exercised to 7 minutes 43 seconds, stopping because she became dizzy and felt like her vision was blacking in from the sides. This was equivalent to 9.3 Mets. She achieved a maximum heart rate of 167 beats per minute which was 107% of a calculated target heart rate of 156. Her rate pressure product calculated on the last blood pressure obtained during exercise which was 190/90 is 31,730. Patient had no chest symptoms, felt better when she was able to lie a with the head of the bed elevated about 20-30 degrees. No diagnostic ischemic changes noted, no arrhythmia noted. Note patient still had mildly elevated heart rate of 107 at the termination of the recovery period, was monitored for 6 minutes. Impression: Subjectively positive for dizziness and possible presyncope, objectively negative EKG for this treadmill stress test. Follow up suggested: Patient was discharged in stable condition, had resolution of her symptoms during rest of the recovery period. She will await the echo images to couple this for a full formal diagnostic, will get report from her ordering physician.
== END 2023-07-02 13:33 | disposition home or self-care (01) ==
LOC: STRESS 13:32
PROVIDERS: PCP Family Medicine; Visit Provider Family Medicine
DX: R42 Dizziness and giddiness (principal); R07.9 Chest pain, unspecified
CPT/HCPCS: 93016; 93325; 93351

== ENCOUNTER 2023-10-10 16:43 | Outpatient (CLI) | payer OTHER, SELFPAY ==
--- OUTSIDE RECORDS SUMMARY | 2023-10-10 16:46 | XMS_ITS | Clinical Summary ---
Author Organization [facility] Address [place], [place] [address] Care Team Providers Care Human Resources Coordinator Name Role Phone AjayBrynn rico MD Primary [...] Date Supervision of normal first 05/21/2007 12/01/2010 Immunizations Name Administration Dates Next Due DTP [...] Grandfather Alive Maternal Grandmother (Age 65) pamella logan [place] Mother Alive Paternal Grandmother adopted Alive [...] Outcome GA Total Labor Labor/2nd/3rd Weight Sex Type Anes PTL Gillian A1 A5 Name Clin 11/09 IAB 5w0 d ELECTIV E AB Debbie ed Last Filed Vital Signs Vital Sign Reading Time Taken Comments Blood Pressure 126/83 03/27/2013 11:08 AM FLORAL ASSOCIATE Pulse 84 03/27/2013 11:08 AM FLORAL ASSOCIATE Temperature 36.8 ??C (98.3 ??F) 03/27/2013 11:[address] Respiratory Rate 18 01/11/2010 10:59 AM CDT Oxygen Saturation 99% 03/27/2013 11:08 AM FLORAL ASSOCIATE Inhaled Oxygen Concentration - - Weight 72.2 kg (159 lb 3.2 oz) 03/27/2013 11:08 AM FLORAL ASSOCIATE Height 177.8 cm (5' 10) 03/27/2013 11:08 AM FLORAL ASSOCIATE Body Mass Index 22.84 03/27/2013 11:08 AM FLORAL ASSOCIATE Plan of Treatment Health Maintenance Due Date [...] Procedure Name Priority Date/Time Associated Diagnosis Comments POT LINING SUPERVISOR THIN PREP PAP SCREEN IMAGED Routine 10/28/2018 11:00 AM CDT ANTI HIV 1/2 Routine 05/21/2007 11:53 AM CDT Supervision Of Normal First from Last 3 Months or Most Recently Relevant to Health Maintenance Results * POT LINING SUPERVISOR THIN PREP PAP SCREEN IMAGED (10/28/2018 11:00 AM CDT) Case Report Gynecologic Cytology Report ? Case: [id number] ? Authorizing Provider: ??Miri Neal MD ?Collected: ? 10/28/2018 1100 ? Ordering Location: ? [facility] ?Received: ?10/29/2018 1205 ? First Screen: ?Ace Araujo ? Specimen: ?POT LINING SUPERVISOR ThinPrep Vial Screening, Cervical/Vaginal ? 11/06/2018 2:33 PM CDT [facility] INTERPRETATION/ RESULT NEGATIVE FOR INTRAEPITHELIAL LESION OR MALIGNANCY (NIL) (none) 11/06/2018 2:33 PM CDT [facility] IMEN ADEQUACY Satisfactory for evaluation Endocervical component present Scant cellularity 11/06/2018 2:33 PM CDT [facility] HPV REQUEST HPV and PAP 11/06/2018 2:33 PM CDT [facility] Date of LMP 10/21/2018 11/06/2018 2:33 PM CDT [facility] Last Pap Date 10/07/2015 11/06/2018 2:33 PM CDT [facility] Last Pap Result NIL 9 2:33 PM CDT [facility] Automated Review Successful 11/06/2018 2:33 PM CDT [facility] Comment:Specimen processed s uccessfully by automated waterproof material folder device, PollitoInglesPrep Imaging System, [employer] ANCILLARY TESTING POT LINING SUPERVISOR HPV Ordered, Please see separate report 11/06/2018 2:33 PM CDT [facility] Note The pap test is a [...] lesions. Cytology is screened and interpreted at [facility] - [address], [place] [address] and [facility] - [address]; [place] [address] and [facility] - [address]; [place] [address] [address] [facility] [address]; [place] [address] 11/06/2018 2:33 PM CDT [facility] Other (Cervical/Vagina l) 10/28/2018 11:00 AM CDT 10/29/2018 12:05 PM CDT Miri Neal MD PATHOLOGY/CYTOLOGY [facility] [address] [place] [address], * ANTI HIV 1/2 (05/21/2007 11:53 AM CDT) ANTI HIV 1/2 Non-reacti ve [facility] Blood specimen (specimen) BLOOD SPECIMEN / Unknown 05/21/2007 11:53 AM CDT 05/21/2007 11:49 AM CDT Abraham Slater MD SEND OUTS [facility] [place]IP [address] [address] [place] [address] from Last 3 Months or Most Recently Relevant to Health Maintenance Care Teams Human Resources Coordinator Relationship Specialty Start Date End Date Ajay, Brynn Nyla, MD [address] [place] [address] PCP - General Family Practice 11/20/10
--- OUTSIDE RECORDS SUMMARY | 2023-10-10 16:46 | XMS_ITS | Clinical Summary ---
Author Organization [facility] Address [address] [place] [address] Care Team Providers Care Social Science Analyst Name Role Phone None Reported, Pcp Primary Care Provider Unavail able Source Comments Patient records contain information from all sites at [facility]. For routine questions regarding patient records, call [phone] during business hours, M-F 8:00 AM - 5:00 PM Central Time. Record requests for emergency care only can be directed to [phone] at any time.[facility] Allergies Active Allergy Reactions Criticality Noted [...] Depressive Disorder 05/23/2011 Anxiety Generalized Disorder 05/16/2011 Overview (06/14/2023): Rule out ADD Deficiency Vitamin D 03/12/2011 [...] (199 lb 15.3 oz) 02/01/2014 1:36 PM AVID EDITOR Height - - Body Mass Index - - Plan of Treatment Not on file Care Teams Social Science Analyst Relationship Specialty Start Date End Date None Reported, Pcp PCP - General Family Medicine 06/14/23
--- OUTSIDE RECORDS SUMMARY | 2023-10-10 16:46 | XMS_ITS | Continuity of Care Document ---
Author Organization [facility] Address [address] [place] [address] Phone Care Team Providers Care Meter Readers Supervisor Name Role Phone Padmini KUMAR, Daniel Unavailable [...] Comments Panel Description: CBC no diff - [place] Final WBC 12:29:00 7.1 K/uL 4.0-10.0 Final [...] suspected, a test for HCV RNA(test code 97824) is suggested. For additional information please refer tohttp://educa [email or web address]/fa [email or web address](This link is being provided for informational/ educational purposes only.) Advance Directives Directive Yes / No Effective Date File Name No Information Encounters Encounter Description Practice Location Reason(s) For Visit Diagnoses Date Provider Providers Copied on Encounter Office/Outpa tient Visit, [facility], [address], [place], [address], [place] tel:[phone] [facility], low back pain (chief complaint) Low back pain 3 Padmini Sanchez. [facility] [address], [place], [address], [place]. tel:[phone] Referring Provider: Daniel Torres, [facility] [address], [place], [address]. tel:[phone] Family History Family Member Type Diagnosis Age At Onset Maternal aunt Problem rheumatoid arthritis Maternal aunt Problem Systemic lupus erythematosu s Payers Payer name Insurance type Covered alliance party ID Authoriza tion(s) Preferred One CI [id number] Social History Type Description Quantity Date Captured [...]
--- OUTSIDE RECORDS SUMMARY | 2023-10-10 16:46 | XMS_ITS | Referral Summary ---
Author Organization [facility] Address [address] [place] [address] Care Team Providers Care Media Reconciliation Specialist Name Role Phone None Reported, Pcp Primary Care Provider Unavail able Source Comments Patient records contain information from all sites at [facility]. For routine questions regarding patient records, call [phone] during business hours, M-F 8:00 AM - 5:00 PM Central Time. Record requests for emergency care only can be directed to [phone] at any time.[facility] Allergies Active Allergy Reactions Criticality Noted Date [...] (199 lb 15.3 oz) 02/01/2014 1:36 PM BIOMEDICAL ENGINEERING TECHNICIAN Height - - Body Mass Index - - Plan of Treatment Not on file Care Teams Media Reconciliation Specialist Relationship Specialty Start Date End Date None Reported, Pcp PCP - General Family Medicine 06/14/23
--- OUTSIDE RECORDS SUMMARY | 2023-10-10 16:46 | XMS_ITS ---
Author Organization [facility] Address [address] [place] [address] Care Team Providers Care Hydroelectric Systems Technician Name Role Phone Unavailable Unavailable Unavailable Surgery Details Not on file Complications Check Surgery Details section. Procedure Estimated Blood Loss Check Surgery Details section. Procedure Findings Check Surgery Details section. Procedure Specimens Taken Check Surgery Details section.
--- NOTE | 2023-10-10 17:00 | CRLHL7_ITS ---
For Patients: As a result of the Century Cures Act, medical imaging exams and procedure reports are released immediately into your electronic medical record. You may view this report before your referring provider. If you have questions, please contact your health care provider. INDICATION: F/U OVARIAN CYSTS COMPARISON: 05/07/2023 TECHNIQUE: 2D ramirez scale and color Doppler images were acquired of the pelvis using a transabdominal and transvaginal approach. FINDINGS: Sonographic images demonstrate a normal size and smooth outer contour of the uterus. Uterus measures 8.7 cm in length by 5.3 cm in AP diameter by 5.8 cm in transverse dimension. The myometrium has a normal uniform echotexture. The endometrial lining appears normal and measures 5.2 mm in composite thickness. Trace amount of fluid is present within the endometrial canal. The right ovary measures 2.2 x 1.5 x 1.9 cm in size and the left ovary measures 4.7 x 5.2 x 4.4 cm. The ovaries demonstrate normal arterial and venous blood flow on color Doppler analysis. There are no suspicious fluid collections within the cul-de-sac. Left ovarian cyst is present with thin internal septations measuring 4.0 x 4.6 x 3.6 cm, previously measuring 5.0 x 3.1 x 4.6 cm. No internal blood flow or solid component. IMPRESSION: Benign 4.6 cm left ovarian cyst with thin internal septations without internal vascularity. Dictated by Wayne Uriarte MD @ 10/11/2023 10:12:30 PM (Electronically Signed)
== END 2023-10-10 16:44 | disposition home or self-care (01) ==
LOC: US 16:44
PROVIDERS: PCP Family Medicine; Visit Provider Internal Medicine
DX: N83.209 Unspecified ovarian cyst, unspecified side (principal); N83.202 Unspecified ovarian cyst, left side
CPT/HCPCS: 76830; 76856

== ENCOUNTER 2023-10-14 07:35 | Outpatient (CLI) | payer OTHER, SELFPAY ==
--- OUTSIDE RECORDS SUMMARY | 2023-10-14 13:32 | XMS_ITS ---
Author Organization [facility] Address [address] [place] [address] Care Team Providers Care Lamp Shade Joiner Name Role Phone Unavailable Unavailable Unavailable Surgery Details Not on file Complications Check Surgery Details section. Procedure Estimated Blood Loss Check Surgery Details section. Procedure Findings Check Surgery Details section. Procedure Specimens Taken Check Surgery Details section.
--- OUTSIDE RECORDS SUMMARY | 2023-10-14 13:32 | XMS_ITS | Clinical Summary ---
Author Organization [facility] Address [address] [place] [address] Care Team Providers Care Director Business Development Name Role Phone None Reported, Pcp Primary Care Provider Unavail able Source Comments Patient records contain information from all sites at [facility]. For routine questions regarding patient records, call [phone] during business hours, M-F 8:00 AM - 5:00 PM Central Time. Record requests for emergency care only can be directed to [phone] at any time.[facility] Allergies Active Allergy Reactions Criticality [...] (199 lb 15.3 oz) 02/01/2014 1:36 PM SNAP SHEARER Height - - Body Mass Index - - Plan of Treatment Not on file Care Teams Director Business Development Relationship Specialty Start Date End Date None Reported, Pcp PCP - General Family Medicine 06/14/23
--- OUTSIDE RECORDS SUMMARY | 2023-10-14 13:32 | XMS_ITS | Referral Summary ---
Author Organization [facility] Address [address] [place] [address] Care Team Providers Care Complex Manager Name Role Phone None Reported, Pcp Primary Care Provider Unavail able Source Comments Patient records contain information from all sites at [facility]. For routine questions regarding patient records, call [phone] during business hours, M-F 8:00 AM - 5:00 PM Central Time. Record requests for emergency care only can be directed to [phone] at any time.[facility] Allergies Active Allergy Reactions Criticality [...] (199 lb 15.3 oz) 02/01/2014 1:36 PM RISK MGR Height - - Body Mass Index - - Plan of Treatment Not on file Care Teams Complex Manager Relationship Specialty Start Date End Date None Reported, Pcp PCP - General Family Medicine 06/14/23
--- OUTSIDE RECORDS SUMMARY | 2023-10-14 13:32 | XMS_ITS | Clinical Summary ---
Author Organization [facility] Address [place], [place] [address] Care Team Providers Care Applications Support Specialist Name Role Phone AjayBrynn rico MD Primary [...] Comments Blood Pressure 126/83 03/27/2013 11:08 AM SOLAR CONSULTANT Pulse 84 03/27/2013 11:08 AM SOLAR CONSULTANT Temperature 36.8 ??C (98.3 ??F) 03/27/2013 11:[address] Respiratory Rate 18 01/11/2010 10:59 AM CDT Oxygen Saturation 99% 03/27/2013 11:08 AM SOLAR CONSULTANT Inhaled Oxygen Concentration - - Weight 72.2 kg (159 lb 3.2 oz) 03/27/2013 11:08 AM SOLAR CONSULTANT Height 177.8 cm (5' 10) 03/27/2013 11:08 AM SOLAR CONSULTANT Body Mass Index 22.84 03/27/2013 11:08 AM SOLAR CONSULTANT Plan of Treatment Health Maintenance Due [...] Procedure Name Priority Date/Time Associated Diagnosis Comments TRANSMISSION SYSTEMS OPERATOR THIN PREP PAP SCREEN IMAGED Routine 10/28/2018 11:00 AM CDT ANTI HIV 1/2 Routine 05/21/2007 11:53 AM CDT Supervision Of Normal First from Last 3 Months or Most Recently Relevant to Health Maintenance Results * TRANSMISSION SYSTEMS OPERATOR THIN PREP PAP SCREEN IMAGED (10/28/2018 11:00 AM CDT) Case Report Gynecologic Cytology Report ? Case: [id number] ? Authorizing Provider: ??Miri Neal MD ?Collected: ? 10/28/2018 1100 ? Ordering Location: ? [facility] ?Received: ?10/29/2018 1205 ? First Screen: ?Ace Araujo ? Specimen: ?TRANSMISSION SYSTEMS OPERATOR ThinPrep Vial Screening, Cervical/Vaginal ? 11/06/2018 2:33 PM CDT [facility] INTERPRETATION/ RESULT NEGATIVE FOR INTRAEPITHELIAL LESION OR MALIGNANCY (NIL) (none) 11/06/2018 2:33 PM CDT [facility] IMEN ADEQUACY Satisfactory for evaluation Endocervical component present Scant cellularity 11/06/2018 2:33 PM CDT [facility] HPV REQUEST HPV and PAP 11/06/2018 2:33 PM CDT [facility] Date of LMP 10/21/2018 11/06/2018 2:33 PM CDT [facility] Last Pap Date 10/07/2015 11/06/2018 2:33 PM CDT [facility] Last Pap Result NIL 9 2:33 PM CDT [facility] Automated Review Successful 11/06/2018 2:33 PM CDT [facility] Comment:Specimen processed s uccessfully by automated packerhead machine operator device, VinglePrep Imaging System, [employer] ANCILLARY TESTING TRANSMISSION SYSTEMS OPERATOR HPV Ordered, Please see separate report 11/06/2018 2:33 PM CDT [facility] Note The pap test is [...] lesions. Cytology is screened and interpreted at [facility] - [address], [place] [address] and [facility] - [address]; [place] [address] and [facility] - [address]; [place] [address] and [facility] [address]; [place] [address] 11/06/2018 2:[address] [facility] Other (Cervical/Vagina l) 10/28/2018 11:00 AM CDT 10/29/2018 12:05 PM CDT Miri Neal MD PATHOLOGY/CYTOLOGY [facility] [address] [place] [address], * ANTI HIV 1/2 (05/21/2007 11:53 AM CDT) ANTI HIV 1/2 Non-reacti ve [facility] Blood specimen (specimen) BLOOD SPECIMEN / Unknown 05/21/2007 11:53 AM CDT 05/21/2007 11:49 AM CDT Abraham Slater MD SEND OUTS [facility] [place] ZIP [address] [address] [place] [id number] from Last 3 Months or Most Recently Relevant to Health Maintenance Care Teams Applications Support Specialist Relationship Specialty Start Date End Date Ajay, Brynn Nyla, MD [address] [place] [address] PCP - General Family Practice 11/20/10
== END 2023-10-14 07:36 | disposition home or self-care (01) ==
LOC: NFLDREF 13:29
PROVIDERS: PCP Family Medicine; Referring Provider Family Medicine; Visit Provider Family Medicine
DX: M25.50 Pain in unspecified joint (principal); G89.29 Other chronic pain; R22.9 Localized swelling, mass and lump, unspecified; R73.9 Hyperglycemia, unspecified; R53.83 Other fatigue; E55.9 Vitamin D deficiency, unspecified; R42 Dizziness and giddiness; Z13.6 Encounter for screening for cardiovascular disorders
CPT/HCPCS: 80053; 80061; 82306; 82533; 82550; 82607; 84443

== ENCOUNTER 2023-11-07 12:40 | Outpatient (CLI) | payer OTHER, SELFPAY | END 2023-11-07 12:41 | disposition home or self-care (01) | LOC: NFLDREF 12:40 | PROVIDERS: PCP Family Medicine; Visit Provider Family Medicine | DX: Z11.3 Encounter for screening for infections with a predominantly sexual mode of transmission (principal) | CPT/HCPCS: 87491; 87591 ==

== ENCOUNTER 2024-02-12 14:58 | Outpatient (CLI) | payer OTHER, SELFPAY ==
--- OUTSIDE RECORDS SUMMARY | 2024-02-12 15:03 | XMS_ITS ---
Author Organization [facility] Address [address] [place] [address] Care Team Providers Care Pie Bottomer Name Role Phone Unavailable Unavailable Unavailable Surgery Details Not on file Complications Check Surgery Details section. Procedure Estimated Blood Loss Check Surgery Details section. Procedure Findings Check Surgery Details section. Procedure Specimens Taken Check Surgery Details section.
--- OUTSIDE RECORDS SUMMARY | 2024-02-12 15:03 | XMS_ITS | Clinical Summary ---
Author Organization [facility] Address [place], [place] [address] Care Team Providers Care Nuisance Wildlife Trapper Name Role Phone Brynn Moss MD Primary Care Provider Allergies Active Allergy [...] not elsewhere classified Anxiety state, unspecified 05/16/2011 Overview (05/16/2011): Rule out ADD Vitamin D deficiency 03/12/2011 [...] 11/09 IAB 5w0 d ELECTIV E AB Deceas ed Last Filed Vital Signs Vital Sign Reading Time Taken Comments Blood Pressure 126/83 03/27/2013 11:08 AM PROCUREMENT CLERK Pulse 84 03/27/2013 11:08 AM PROCUREMENT CLERK Temperature 36.8 C (98.3 F) 03/27/2013 11:08 AM PROCUREMENT CLERK Respiratory Rate 18 01/11/2010 10:59 AM CDT Oxygen Saturation 99% 03/27/2013 11:08 AM PROCUREMENT CLERK Inhaled Oxygen Concentration - - Weight 72.2 kg (159 lb 3.2 oz) 03/27/2013 11:08 AM PROCUREMENT CLERK Height 177.8 cm (5' 10) 03/27/2013 11:08 AM PROCUREMENT CLERK Body Mass Index 22.84 03/27/2013 11:08 AM PROCUREMENT CLERK Plan of Treatment Health Maintenance Due Date Last Done Comments Depression screening for age 12+ 1999 BMI (ht and wt on same day) for age 18+ 06/30/2005 Hepatitis C screening for age 18-79 06/30/2005 Tetanus booster 09/13/2019 09/12/2009, 12/19/1998 Pap test for age 21-65 10/28/2021 9, 10/28/2018, 10/07/2015, Additional history exists COVID-19 vaccine series (2023- season) 2023 Influenza for age 9-49 11/10/2023 01/07/2008 HIV for age 15-65 Completed 05/21/2007 Tdap Completed 09/12/2009 Pneumococcal series for age 6-64 Aged Out No longer eligible based on patient's age to complete this topic Procedures Procedure Name Priority Date/Time Associated Diagnosis Comments INSTRUCTIONAL TECHNOLOGIST THIN PREP PAP SCREEN IMAGED Routine 10/28/2018 11:00 AM CDT ANTI HIV 1/2 Routine 05/21/2007 11:53 AM CDT Supervision Of Normal First from Last 3 Months or Most Recently Relevant to Health Maintenance Results * INSTRUCTIONAL TECHNOLOGIST THIN PREP PAP SCREEN IMAGED (10/28/2018 11:00 AM CDT) Case Report Gynecologic Cytology Report Case: [id number] Authorizing Provider: Miri Neal MD Collected: 10/28/2018 1100 Ordering Location: [facility] Received: 10/29/2018 1205 First Screen: Ace Araujo Specimen: INSTRUCTIONAL TECHNOLOGIST ThinPrep Vial Screening, Cervical/Vaginal 11/06/2018 2:33 PM CDT [facility] INTERPRETATION/ RESULT NEGATIVE FOR INTRAEPITHELIAL LESION OR MALIGNANCY (NIL) (none) 11/06/2018 2:33 PM CDT [facility] IMEN ADEQUACY Satisfactory for evaluation Endocervical component present Scant cellularity 11/06/2018 2:33 PM CDT [facility] HPV REQUEST HPV and PAP 11/06/2018 2:33 PM CDT [facility] Date of LMP 10/21/2018 11/06/2018 2:33 PM CDT [facility] Last Pap Date 10/07/2015 11/06/2018 2:33 PM CDT [facility] Last Pap Result NIL 9 2:33 PM CDT [facility] Automated Review Successful 11/06/2018 2:33 PM CDT [facility] Comment:Specimen processed s uccessfully by automated ships equipment engineer device, ThinPrep Imaging System, [employer] ANCILLARY TESTING INSTRUCTIONAL TECHNOLOGIST HPV Ordered, Please see separate report 11/06/2018 2:33 PM CDT [facility] Note The pap test is a screening technique, not a diagnostic procedure. It is used primarily to screen for squamous cancers and precursor lesions. Published studies have shown that it is subject to both false negative and false positive results. The pap test should not be used as the sole means to diagnose or exclude pre-malignant and malignant lesions. Cytology is screened and interpreted at [facility] - [address], [place] [address] and [facility] - [address] [place] [address]; [place] [address] and [facility] - [address]; [place] [address] and [facility] [address]; [place] [address] 11/06/2018 2:33 PM CDT [facility] Other (Cervical/Vagina l) 10/28/2018 11:00 AM CDT 10/29/2018 12:05 PM CDT Miri Neal MD PATHOLOGY/CYTOLOGY [facility] [address] [place] [address], * ANTI HIV 1/2 (05/21/2007 11:53 AM CDT) ANTI HIV 1/2 Non-reacti ve [facility] Blood specimen (specimen) BLOOD SPECIMEN / Unknown 05/21/2007 11:53 AM CDT 05/21/2007 11:49 AM CDT Abraham Slater MD SEND OUTS [facility] INTERNAL ZIP [id number] [place] [phone] from Last 3 Months or Most Recently Relevant to Health Maintenance Care Teams Nuisance Wildlife Trapper Relationship Specialty Start Date End Date Brynn Moss MD [address] [place] [address] PCP - General Family Practice 11/20/10
--- OUTSIDE RECORDS SUMMARY | 2024-02-12 15:03 | XMS_ITS | Referral Summary ---
Author Organization [facility] Address [address] [place] [address] Care Team Providers Care White Hat Hacker Name Role Phone None Reported, Pcp Primary Care Provider Unavail able Source Comments Patient records contain information from all sites at [facility]. For routine questions regarding patient records, call [phone] during business hours, M-F 8:00 AM - 5:00 PM Central Time. Record requests for emergency care only can be directed to [phone] at any time.[facility] Allergies Active Allergy Reactions Criticality Noted Date Comments Indomethacin GI intolerance,Itching,Nausea Only 12/16/2012 Medications FLUoxetine (PROzac) 20 mg tablet Take by [...] Date Recorded Dental: Regular Dentist Unknown 06/14/19 Comments No Sex and Gender Information Value Date Recorded Sex Assigned at Not on file Legal Sex Female 8:02 PM SENIOR SQL DATABASE DEVELOPER Gender Identity Not on file Sexual Orientation Not on file Last Filed Vital Signs Vital Sign Reading Time Taken Comments Blood Pressure 112/72 06/14/2023 5:22 PM CDT Pulse 72 06/14/2023 5:22 PM CDT Temperature 36.5 C (97.7 F) 06/14/2023 5:22 PM CDT Respiratory Rate 18 06/14/2023 5:22 PM CDT Oxygen Saturation 100% 06/14/2023 5:22 PM CDT Inhaled Oxygen Concentration - - Weight 90.7 kg (199 lb 15.3 oz) 02/01/2014 1:36 PM SENIOR SQL DATABASE DEVELOPER Height - - Body Mass Index - - Plan of Treatment Not on file Insurance [facility] Care Teams White Hat Hacker Relationship Specialty Start Date End Date None Reported, Pcp PCP - General Family Medicine 06/14/23
--- OUTSIDE RECORDS SUMMARY | 2024-02-12 15:03 | XMS_ITS | Clinical Summary ---
Author Organization [facility] Address [address] [place] [address] Care Team Providers Care Post Office Manager Name Role Phone None Reported, Pcp Primary Care Provider Unavail able Source Comments Patient records contain information from all sites at [facility]. For routine questions regarding patient records, call [phone] during business hours, M-F 8:00 AM - 5:00 PM Central Time. Record requests for emergency care only can be directed to [phone] at any time.[facility] Allergies Active Allergy Reactions Criticality Noted [...] Date Recorded Dental: Regular Dentist Unknown 06/14/19 24 Comments No Sex and Gender Information Value Date Recorded Sex Assigned at Not on file Legal Sex Female 8:02 PM TEXTILE SUPERVISOR Gender Identity Not on file Sexual Orientation [...] (199 lb 15.3 oz) 02/01/2014 1:36 PM TEXTILE SUPERVISOR Height - - Body Mass Index - - Plan of Treatment Not on file Insurance [facility] Care Teams Post Office Manager Relationship Specialty Start Date End Date None Reported, Pcp PCP - General Family Medicine 06/14/23
== END 2024-02-12 14:59 | disposition home or self-care (01) ==
PROVIDERS: PCP Family Medicine; Visit Provider Family Medicine
DX: E55.9 Vitamin D deficiency, unspecified (principal); R53.1 Weakness
CPT/HCPCS: 80053; 82306

== ENCOUNTER 2024-04-09 08:00 | Outpatient (CLI) | payer OTHER, SELFPAY | END 2024-04-09 08:01 | disposition home or self-care (01) | LOC: NFLDREF 04-13 03:42 | PROVIDERS: PCP Family Medicine; Referring Provider Family Medicine; Visit Provider Family Medicine | DX: E55.9 Vitamin D deficiency, unspecified (principal) | CPT/HCPCS: 82306 ==

== ENCOUNTER 2024-04-21 16:25 | Outpatient (CLI) | payer OTHER, SELFPAY | END 2024-04-21 16:26 | disposition home or self-care (01) | PROVIDERS: PCP Family Medicine; Visit Provider Obstetrics & Gynecology | DX: R10.2 Pelvic and perineal pain (principal); N83.202 Unspecified ovarian cyst, left side | CPT/HCPCS: 76830; 76856; 93976 ==

== ENCOUNTER 2024-04-30 16:06 | Outpatient (CLI) | payer OTHER, SELFPAY | END 2024-04-30 16:07 | disposition home or self-care (01) | PROVIDERS: PCP Family Medicine; Visit Provider Internal Medicine | DX: R10.9 Unspecified abdominal pain (principal) | CPT/HCPCS: 74177; Q9967 ==

== ENCOUNTER 2024-12-28 17:57 | Outpatient (CLI) | payer OTHER, SELFPAY ==
--- NOTE | 2024-12-28 18:15 | CRLHL7_ITS ---
For Patients: As a result of the Cures Act, medical imaging exams and procedure reports are released immediately into your electronic medical record. You may view this report before your referring provider. If you have questions, please contact your health care provider. INDICATION: Low back pain. TECHNIQUE: Noncontrast sagittal and axial T1, T2, and sagittal STIR sequences are provided. Compared to prior study from September 01, 2020. FINDINGS: The overall stature, alignment and intrinsic marrow signal of the lumbar spine is within normal limits. Conus is normal. L1-2, L2-3: Unremarkable. L3-4: Improved mild broad-based posterior disc bulge results in no central canal or foraminal narrowing. L4-5: Posterior central disc protrusion is again demonstrated resulting in no significant central canal or foraminal narrowing. Mild left lateral recess narrowing. L5-S1: Left lateral recess disc protrusion is again demonstrated resulting in stable moderate left lateral recess narrowing and compression of the traversing left S1 nerve root. No central canal or foraminal narrowing. IMPRESSION: 1. Stable moderate left lateral recess narrowing at L5-S1 with contact and compression of the traversing left S1 nerve root. 2. Stable mild left lateral recess narrowing at L4-5 resulting in near contact of the traversing left L5 nerve root. Dictated by Kojo Chicas MD @ 12/29/2024 7:58:28 AM (Electronically Signed)
== END 2024-12-28 17:58 | disposition home or self-care (01) ==
PROVIDERS: PCP Family Medicine; Visit Provider Family Medicine
DX: M51.27 Other intervertebral disc displacement, lumbosacral region (principal); M51.26 Other intervertebral disc displacement, lumbar region; M54.41 Lumbago with sciatica, right side; M54.42 Lumbago with sciatica, left side; G89.29 Other chronic pain
CPT/HCPCS: 72148

== ENCOUNTER 2025-01-20 09:23 | Outpatient (CLI) | payer OTHER, SELFPAY ==
[2025-01-21 21:56] LABS: HPV Source Cervix
[2025-01-25 16:06] LABS: Pap Test Digital Imaging Done
== END 2025-01-20 09:24 | disposition home or self-care (01) ==
PROVIDERS: PCP Family Medicine; Visit Provider Obstetrics & Gynecology
DX: Z12.4 Encounter for screening for malignant neoplasm of cervix (principal)
CPT/HCPCS: 87624; 87625; 88141; 88142; 88175